=== PATIENT | female | born 1950 ===

== ENCOUNTER 2022-03-30 12:52 | Outpatient (CLI) | payer MEDICARE, SELFPAY ==
[2022-03-30] MEDS: PERFLUTREN LIPID MICROSPHERES 2 ML VIAL IV (13:38)
[2022-03-30 15:11] VITALS: BP 167/80; PULSE 69
== END 2022-03-30 12:53 | disposition home or self-care (01) ==
LOC: STRESS 12:54
PROVIDERS: PCP Internal Medicine; Visit Provider Family Medicine
DX: R07.89 Other chest pain (principal)
CPT/HCPCS: 93016; 93325; 93351; Q9957

== ENCOUNTER 2022-06-01 09:14 | Outpatient (CLI) | payer MEDICARE, SELFPAY ==
[2022-06-01 10:53] LABS: Cholesterol* 145 mg/dL (90-199); HDL Cholesterol* 34 mg/dL (>=50); LDL Cholesterol Calculated 54 mg/dL (<100); Triglycerides* 287 mg/dL (40-149)
== END 2022-06-01 09:15 | disposition home or self-care (01) ==
PROVIDERS: PCP Internal Medicine; Visit Provider Internal Medicine
DX: E03.9 Hypothyroidism, unspecified (principal); E11.9 Type 2 diabetes mellitus without complications; E78.5 Hyperlipidemia, unspecified; I10 Essential (primary) hypertension
CPT/HCPCS: 80061; 84443

== ENCOUNTER 2022-08-16 10:15 | Outpatient (CLI) | payer MEDICARE, SELFPAY ==
--- NOTE | 2022-08-16 10:15 | CRLHL7_ITS ---
For Patients: As a result of the Century Cures Act, medical imaging exams and procedure reports are released immediately into your electronic medical record. You may view this report before your referring provider. If you have questions, please contact your health care provider. SCREENING MAMMOGRAM WITH COMPUTER-AIDED DETECTION TECHNIQUE: CC and MLO views were obtained. These mammographic images have been obtained using full-field digital technique. These mammographic images were interpreted with the benefit of computer-aided detection. COMPARISON FILM: 06/03/21, 05/16/20. FINDINGS: There are scattered areas of fibroglandular density IMPRESSION: There is no radiographic evidence for malignancy. ASSESSMENT: BI-RADS Category 1: Negative RECOMMENDATION: Routine screening mammogram in 1 year. A lay language report of this examination will be provided to the patient. Marcus Holland M.D. Diagnostic Radiologist [email or web address] Transcribed: 1:57 pm DW/Dictated by: Marcus Holland MD @ 08/20/2022 12:18:00 PM (Electronically Signed)
== END 2022-08-16 10:16 | disposition home or self-care (01) ==
PROVIDERS: PCP Internal Medicine; Visit Provider Internal Medicine
DX: Z12.31 Encounter for screening mammogram for malignant neoplasm of breast (principal)
CPT/HCPCS: 77067

== ENCOUNTER 2023-01-03 08:36 | Outpatient (CLI) | payer MEDICARE, SELFPAY | END 2023-01-03 08:37 | disposition home or self-care (01) | LOC: NFLDREF 22:10 | PROVIDERS: PCP Internal Medicine; Referring Provider Internal Medicine; Visit Provider Internal Medicine | DX: E11.9 Type 2 diabetes mellitus without complications (principal); R74.01 Elevation of levels of liver transaminase levels; I10 Essential (primary) hypertension; E03.9 Hypothyroidism, unspecified; E78.5 Hyperlipidemia, unspecified | CPT/HCPCS: 80053; 82043; 82570 ==

== ENCOUNTER 2023-07-05 08:30 | Outpatient (CLI) | payer MEDICARE, SELFPAY | END 2023-07-05 08:31 | disposition home or self-care (01) | LOC: NFLDREF 07-08 06:33 | PROVIDERS: PCP Internal Medicine; Referring Provider Internal Medicine; Visit Provider Internal Medicine | DX: E11.9 Type 2 diabetes mellitus without complications (principal); E78.5 Hyperlipidemia, unspecified; E03.9 Hypothyroidism, unspecified; I10 Essential (primary) hypertension; R74.01 Elevation of levels of liver transaminase levels | CPT/HCPCS: 80053; 80061; 84443 ==

== ENCOUNTER 2023-12-04 08:56 | Emergency (ER) | payer MEDICARE, SELFPAY ==
[2023-12-04 09:00] VITALS: BP 168/86; PULSE 72; RESP 18; TEMP 36.3; O2SAT 98; BMI 33.3
--- NOTE | 2023-12-04 09:18 | CT_ITS ---
Patient: HARRIET WOMACK Facility:?[facility] Patient ID:?[id number] Site Patient ID:?[id number]. Site :?[id number] Study:?CT-Abdomen/Pelvis W/ 98CC ISOVUE 370-12/04/2023 9:39:07 AM Ordering Physician:TULIO Final Report: INDICATION: Left-sided abdominal pain. TECHNIQUE: CT abdomen and pelvis acquired with 98 cc Isovue 370 IV contrast. COMPARISON: MRI abdomen December 14, 2021. FINDINGS: Lower chest: Unremarkable. Liver: Fatty infiltration. Otherwise unremarkable. Gallbladder and bile ducts: Unremarkable. No stones or inflammation. No biliary dilatation. Pancreas: Stable 2 cm midbody cystic Spleen: Lesion. Otherwise unremarkable. Adrenal glands: Unremarkable. No nodules. Kidneys: Unremarkable. No suspicious masses, stones, or hydronephrosis. GI tract: Unremarkable. Normal in caliber. No sign of mass or inflammation. Normal appendix. Vasculature: Abdominal aorta is normal in caliber. Mesenteric arteries are patent. Lymph nodes: No lymphadenopathy. Peritoneum/Abdominal Wall: Unremarkable. No sign of mass or infiltration. No free air or significant free fluid. Pelvis: Unremarkable. Bones: Unremarkable for age. IMPRESSION: 1. No acute or specific finding to explain left-sided abdominal pain. 2. Stable 2 cm cystic lesion in the pancreas. Please note that all CT scans at this facility use dose modulation, iterative reconstruction, and/or weight-based dosing when appropriate to reduce radiation dose to as low as reasonably achievable. Dictated by Blane Hood MD @ 12/04/2023 9:53:46 AM Signed by:?Blane Hood MD @12/04/2023 9:53:46 AM (Electronic Signature)
--- NOTE | 2023-12-04 09:19 | ED.ABDPAIN ---
HPI - Abdominal Pain General Chief Complaint: Abdominal Pain Stated Complaint: abdominal pain, constipation Time Seen by Provider: 12/04/23 09:08 History of Present Illness HPI narrative: This 72-year-old female comes in reporting abdominal pain and constipation for the past 5 days. She states that the pain is rather constant and more localized in the left abdomen. She gets increased pain and nausea when taking food. She does not report any fevers. She did take a Dulcolax tablet a couple days ago and subsequently had a small grayish colored stool. Related Data Home Medications Medication Instructions Recorded Confirmed aspirin 81 mg chewable tablet 81 mg PO DAILY 06/03/22 12/04/23 cholecalciferol (vitamin D3) 25 25 mcg PO DAILY 06/03/22 12/04/23 mcg (1,000 unit) tablet coenzyme Q10 100 mg capsule 100 mg PO DAILY 06/03/22 12/04/23 loratadine 10 mg tablet 10 mg PO DAILY 06/03/22 12/04/23 magnesium oxide 250 mg PO DAILY 06/03/22 12/04/23 multivitamin (Multiple Vitamins 1 tab PO QAM 06/03/22 12/04/23 tablet) omega 6-cot-prv-fish oil 1,000 mg 1 cap PO QDAY 06/03/22 12/04/23 (120 mg-180 mg) capsule (Fish Oil) Previous Rx's Medication Instructions Recorded atorvastatin 10 mg tablet 10 mg PO .Bedtime #90 tabs 07/07/23 levothyroxine 125 mcg tablet 125 mcg PO DAILY #90 tabs 07/07/23 lisinopril 10 1 tab PO DAILY #90 tabs 07/07/23 mg-hydrochlorothiazide 12.5 mg tablet ketorolac 10 mg tablet 10 mg PO Q8H 5 days #15 tabs 12/04/23 methylprednisolone 4 mg tablets in See Rx Instructions PO .COMPLEX 12/04/23 a dose pack (Medrol (Woo)) #21 ea ondansetron HCl 4 mg tablet 4 mg PO Q6H #10 tabs 12/04/23 Allergies Allergy/AdvReac Type Severity Reaction Status Date / Time No Known Drug Allergies Allergy Verified 12/04/23 09:34 Review of Systems Status of ROS Reports: 10 or more systems reviewed and unremarkable except as noted in History and below Narrative Constitutional: No fevers, no weight gain or loss. Eyes: No discharge. No vision changes. HENT: No congestion, no sore throat, no ear pain. Cardiovascular: No chest pain, no palpitations. Respiratory: No shortness of breath, no wheezes, no cough. Gastrointestinal: No vomiting, no diarrhea. Left-sided abdominal pain as described above. Genitourinary: No dysuria, no hematuria. Musculoskeletal: Normal range of motion. Skin: No rashes, no pruritis. Neurological: No dizziness, weakness, sensory change, speech change. Endo/Heme/Allergies: No bruising or bleeding. No polydipsia. Pysch: no suicidality, no anxiety, no insomnia. All other systems reviewed and are negative. [facility] Medical History (Updated 12/04/23 @ 11:29 by Fred Martinez MD) History of temporomandibular joint disorder ?Z87.39 - Personal history of other diseases of the musculoskeletal system and connective tissue (ICD-10) History of Helicobacter pylori infection (2015) ?Z86.19 - Personal history of other infectious and parasitic diseases (ICD-10) Surgical History (Updated 06/03/22 @ 10:23 by Liss Madera MD) History of nasal septoplasty (02/15/08) ?Z98.890 - Other specified postprocedural states (ICD-10) History of cryosurgery (1988) ?Z98.890 - Other specified postprocedural states (ICD-10) History of carpal tunnel release ?Z98.890 - Other specified postprocedural states (ICD-10) History of blepharoplasty (2012) ?Z98.890 - Other specified postprocedural states (ICD-10) Social History Smoking Status: Former smoker Do you use any of these nicotine containing products: None How often do you have a drink containing alcohol: never How often do you have six or more drinks on one occasion: Never AUDIT-C Alcohol total score: 0 Non-prescribed substance use: denies use Little interest or pleasure in doing things: not at all Feeling down, depressed, or hopeless: not at all Exam Narrative: Exam Narrative: Constitutional: Well-developed, well-nourished, no acute distress. HEENT: Normocephalic, atraumatic. Neck: Normal range of motion. Nontender. Supple. Heart: Regular. No murmurs. Normal rate. Intact distal pulses. Lungs: Clear to auscultation. No chest discomfort. No wheezes, rhonchi, or rales. Abdomen: Normal bowel sounds. Diffuse tenderness in the left abdomen. No rebound tenderness. Genitalia: Deferred. Back: No midline tenderness. Normal range of motion. Extremities: Normal range of motion. No injury. Skin: Intact. No rash. Warm. No erythema or pallor. Neurologic: No altered sensation. No weakness. Alert and oriented. Psychiatric: No suicidality. No anxiety or depression. No insomnia. Nursing notes and vitals signs are reviewed. Const: Vital Signs, click to edit/add: Vital Signs - 24 hr 12/04/23 09:00 Temperature 97.3 F L Pulse Rate [Right Pulse Oximeter] 72 Respiratory Rate 18 Blood Pressure [Ri ght Upper Arm] 168/86 H Pulse Oximetry 98 Oxygen Delivery Me thod Room Air Course Vital Signs Vital signs: Initial Vital Signs Temperature 97.3 F L 12/04/23 09:00 Temperature Source Temporal Artery Scan 12/04/23 09:00 Pulse Rate 72 12/04/23 09:00 Pulse Rhythm Regular 12/04/23 09:00 Respiratory Rate 18 12/04/23 09:00 Blood Pressure 168/86 H 12/04/23 09:00 Blood Pressure Mean 113 H 12/04/23 09:00 Pulse Oximetry 98 12/04/23 09:00 Oxygen Delivery Method Room Air 12/04/23 09:00 Vital Signs Temperature 97.3 F L 12/04/23 09:00 Pulse Rate 72 12/04/23 09:00 Respiratory Rate 18 12/04/23 09:00 Blood Pressure 168/86 H 12/04/23 09:00 Pulse Oximetry 98 12/04/23 09:00 Oxygen Delivery Method Room Air 12/04/23 09:00 Temperature 97.3 F L 12/04/23 09:00 Pulse Rate 72 12/04/23 09:00 Respiratory Rate 18 12/04/23 09:00 Blood Pressure 168/86 H 12/04/23 09:00 Pulse Oximetry 98 12/04/23 09:00 Oxygen Delivery Method Room Air 12/04/23 09:00 MDM - Abdominal Pain MDM Narrative Medical decision making narrative: This patient comes in with left-sided abdominal pain and does report some constipation over the past 5 days. An IV is established and the CT imaging and labs are obtained. Lab results returned with reassuring finding as does the CT scan report. She does have a 2 cm cystic structure in her pancreas which is unchanged from previous study. There are no findings on imaging to explain her left-sided abdominal pain. The patient is obviously having some constipation and has not been eating as much. She does have some back pain issues and her abdominal pain may be related to a musculoskeletal or nerve impingement process. She is okay to be discharged home. She did received prescription for Toradol, Zofran, and Medrol Dosepak. She understands that the steroid will cause her glucose to elevate temporarily. Lab Data Labs: Lab Results 12/04/23 12/04/23 Range/Units 09:10 10:20 WBC 9.39 (4.50-11.00) K/uL RBC 4.22 (4.00-5.20) m/uL Hgb 13.7 (12.0-16.0) gm/dL Hct 40.2 (33.0-51.0) % MCV 95 (80-100) fL MCH 33 (26-34) pg MCHC 34 (32-36) gm/dL RDW Coeff of [place] 12.5 (11.5-15.5) % Plt Count 240 (140-440) K/uL Neut % (Auto) 58.5 (42.0-72.0) % Lymph % (Auto) 32.8 (20-44) % [place] % (Auto) 6.4 (0.0-11.0) % Eos % (Auto) 1.8 (0.0-7.0) % Baso % (Auto) 0.4 (0.0-3.0) % Neut # (Auto) 5.49 (1.7-7.0) K/uL Lymph # (Auto) 3.08 H (0.90-2.90) K/uL [place] # (Auto) 0.60 (0.00-0.90) K/UL Eos # (Auto) 0.17 (0.00-0.50) K/uL Baso # (Auto) 0.04 (0.00-0.30) K/uL Abs Immat Gran (auto) 0.01 (0.00-0.30) K/uL Imm/Tot Granulo (auto) 0.1 % Sodium 141 (135-149) mmol/L Potassium 3.6 (3.6-5.1) mmol/L Chloride 103 (96-114) mmol/L Carbon Dioxide 29 (20-32) mmol/L Anion Gap 9 (7-15) mEq/L BUN 16 (7-30) mg/dL Creatinine 0.7 (0.5-1.5) mg/dL Estimated Creat Clear 46.43 Estimated GFR 92 ml/min Glucose 145 H (60-115) mg/dL Calcium 10.2 (8.4-10.6) mg/dL Total Bilirubin 0.6 (0.1-1.5) mg/dL Direct Bilirubin 0.2 (0.0-0.5) mg/dL AST 36 H (12-35) U/L ALT 38 H (4-35) U/L Alkaline Phosphatase 54 (40-150) U/L Total Protein 8.1 (6.0-8.3) g/dL Albumin 4.7 (3.3-5.0) g/dL Lipase 119 (23-300) U/L Urine Color Yellow (Yellow) Urine Appearance Clear (Clear) Urine pH 6.5 (5.0-8.5) Ur Specific [place] 1.015 (1.000-1.030) Urine Protein Negative (Negative) Urine Glucose (UA) Negative (Negative) Urine Ketones Negative (Negative) Urine Blood Negative (Negative) Urine Nitrite Negative (Negative) Urine Bilirubin Negative (Negative) Urine Urobilinogen 0.2 (0.2-1.0) Ur Leukocyte Esterase Negative (Negative) Urine RBC 0-2 (0-2) Urine WBC 0-2 (0-5) Ur Squamous Epith Cells Few (None-Few) Urine Bacteria None (None) Imaging Data CT scan - abdomen: Radiologist's impression: No acute or specific finding to explain left-sided abdominal pain. Stable 2 cm cystic lesion in the pancreas. Discharge Plan Discharge Clinical Impression: Abdominal pain Patient Disposition: Home, Self-Care Condition: Stable Additional Instructions: Take medications as needed and indicated. Use qrhj-qst-[id number] medicines to treat constipation as needed and directed. Follow up with MD or return if worsening. Prescriptions: New ondansetron HCl 4 mg tablet 4 mg PO Q6H Qty: 10 0RF ketorolac 10 mg tablet 10 mg PO Q8H 5 Days Qty: 15 0RF methylprednisolone [Medrol (Woo)] 4 mg tablets,dose pack See Rx Instructions .ROUTE .COMPLEX Qty: 21 0RF Rx Instructions: orally per package directions No Action cholecalciferol (vitamin D3) 25 mcg (1,000 unit) tablet 25 mcg PO DAILY coenzyme Q10 100 mg capsule 100 mg PO DAILY magnesium oxide 250 mg magnesium tablet 250 mg PO DAILY loratadine 10 mg tablet 10 mg PO DAILY aspirin 81 mg tablet,chewable 81 mg PO DAILY multivitamin [Multiple Vitamins] Tablet 1 tab PO QAM omega 7-wbr-vjx-fish oil [Fish Oil] 1,000 mg (120 mg-180 mg) capsule 1 cap PO QDAY atorvastatin 10 mg tablet 10 mg PO .Bedtime Qty: 90 3RF levothyroxine 125 mcg tablet 125 mcg PO DAILY Qty: 90 3RF lisinopril-hydrochlorothiazide 10-12.5 mg tablet 1 tab PO DAILY Qty: 90 3RF Follow Up/Referrals: Liss Madera MD [Primary Care Provider] - [facility]
[2023-12-04 09:36] LABS: Basophils Absolute Auto 0.04 K/uL (0.00-0.30); Basophils Percent Auto 0.4 % (0.0-3.0); Eosinophils Absolute Auto 0.17 K/uL (0.00-0.50); Eosinophils Percent Auto 1.8 % (0.0-7.0); Hematocrit 40.2 % (33.0-51.0); Hemoglobin* 13.7 gm/dL (12.0-16.0); Immature Granulocytes Abs Auto 0.01 K/uL (0.00-0.30); Immature Granulocytes Pct Auto 0.1 %; Lymphocytes Absolute Auto 3.08 K/uL (0.90-2.90); Lymphocytes Percent Auto 32.8 % (20-44); Mean Corpuscular HGB Conc 34 gm/dL (32-36); Mean Corpuscular Hemoglobin 33 pg (26-34); Mean Corpuscular Volume 95 fL (80-100); Monocytes Percent Auto 6.4 % (0.0-11.0); Neutrophils Absolute Auto 5.49 K/uL (1.7-7.0); Neutrophils Percent Auto 58.5 % (42.0-72.0); Platelet Count* 240 K/uL (140-440); RDW Coefficient of Variation % 12.5 % (11.5-15.5); Red Blood Count 4.22 m/uL (4.00-5.20); White Blood Count* 9.39 K/uL (4.50-11.00)
[2023-12-04 09:46] LABS: Slide Review Reflex No
[2023-12-04 09:50] LABS: Albumin* 4.7 g/dL (3.3-5.0); Chloride* 103 mmol/L (96-114); Potassium* 3.6 mmol/L (3.6-5.1); Sodium* 141 mmol/L (135-149)
[2023-12-04 09:52] LABS: Anion Gap 9 mEq/L (7-15); Bilirubin Direct* 0.2 mg/dL (0.0-0.5); Bilirubin Total* 0.6 mg/dL (0.1-1.5); Carbon Dioxide* 29 mmol/L (20-32); Creatinine* 0.7 mg/dL (0.5-1.5); Est. Creatinine Clearance* 46.43; Estimated Glomerular Filt Rate 92 ml/min; Total Protein* 8.1 g/dL (6.0-8.3)
[2023-12-04 09:53] LABS: Alanine Aminotransferase* 38 U/L (4-35); Alkaline Phosphatase* 54 U/L (40-150); Aspartate Amino Transferase* 36 U/L (12-35); Blood Urea Nitrogen* 16 mg/dL (7-30); Calcium* 10.2 mg/dL (8.4-10.6); Glucose* 145 mg/dL (60-115); Lipase* 119 U/L (23-300)
[2023-12-04 10:27] LABS: Appearance Urine Clear (Clear); Bilirubin Urine Negative (Negative); Blood Urine Negative (Negative); Color Urine Yellow (Yellow); Glucose Urine Negative (Negative); Ketones Urine Negative (Negative); Leukocyte Esterase Urine Negative (Negative); Nitrite Urine Negative (Negative); Protein Urine Negative (Negative); Specific Gravity Urine 1.015 (1.000-1.030); Urobilinogen Urine 0.2 (0.2-1.0); pH Urine 6.5 (5.0-8.5)
[2023-12-04 10:42] LABS: RBC Urine 0-2 (0-2); Squamous Epithelial Cell Urine Few (None-Few); WBC Urine 0-2 (0-5)
== END 2023-12-04 11:37 | disposition home or self-care (01) ==
PROVIDERS: Emergency Provider Emergency Medicine Emergency Medical Services; PCP Internal Medicine
DX: R10.9 Unspecified abdominal pain (principal)
CPT/HCPCS: 36415; 74177; 80048; 80076; 81001; 83690; 85025; 99284; 99285; Q9967

== ENCOUNTER 2023-12-29 10:35 | Outpatient (CLI) | payer MEDICARE, SELFPAY ==
--- OUTSIDE RECORDS SUMMARY | 2023-12-30 07:11 | XMS_ITS | Encounter Summary ---
Author Name Unknown Organization [facility] Address [address] [place] [address] Care Team Providers Care Moose Hunter Name Role Phone Elsewhere, Pcp Primary Care Provider Unavailabl e Reason for Visit * Reason Onset Date Comments Post Surgery Question 12/23/2023 Encounter Details Date Type Department Care Team (Latest Contact Info) Description 12/23/2023 Clinical Communication Department of Otorhinolaryngology in [place], [place] [address] [place] [address] Daniel Domínguez M.D. [address] [place] [phone] Post Surgery Question Social History Tobacco Use Types Packs/Day Years Used Date Smoking Tobacco: Former Cigarettes Q uit: 09/20/1991 Alcohol Use Standard Drinks/Week Comments Yes 8 (1 standard drink = 0.6 oz pur e alcohol) [facility] Utilities Answer Date Recorded In the past 12 months has e electric, gas, oil, or water company threatened to shut off services in your home? No 12/22/2023 Social Connection and Isolat ion Panel [NHANES] Answer Date Recorded In a typical week, how many times do you talk on the phone with family, friends, or neighbors? Once a week 02/25/2021 How often do you get togethe r with friends or relatives? Once a week 02/25/2021 How often do you attend [facility] or sikh services? Never 02/25/2021 Do you belong to any clubs o r organizations such as temple groups, unions, fraternal or athletic groups, or school groups? Yes 02/25/2021 How often do you attend meet ings of the clubs or organizations you belong to? More than 4 times per year 02/25/2021 Are you , , di vorced, , never , or living with a partner? 02/25/2021 AUDIT-C Answer Date Recorded Q1: How often do you have a drink containing alcohol? 4 or more times a week 02/25/2021 Q2: How many drinks containi ng alcohol do you have on a typical day when you are drinking? 1 or 2 Q3: How often do you have si x or more drinks on one occasion? Never 02/25/2021 Overall Financial Resource Strain (CARDIA) Answe r Date Recorded How hard is it for you to pa y for the very basics like food, housing, medical care, and heating? Not hard at all 02/25/2021 [facility] - Occupational Stress Questionnaire Answer Date Recorded Do you feel stress - tense, restless, nervous, or anxious, or unable to sleep at night because your mind is troubled all the time - these days? Not at all 02/25/2021 Exercise Vital Sign Answer Date Recorde d On average, how many days pe r week do you engage in moderate to strenuous exercise (like a brisk walk)? 4 days 11/15/2023 On average, how many minutes do you engage in exercise at this level? 60 min 11/15/2023 Hunger Vital Sign Answer Date Recorded Within the past 12 months, y ou worried that your food would run out before you got the money to buy more. Never true 12/22/19 24 Within the past 12 months, t he food you bought just didn't last and you didn't have money to get more. Never true 12/22/2023 PRAPARE - Transportation Answer Date Re corded In the past 12 months, has l ack of transportation kept you from medical appointments or from getting medications? No 12/11 In the past 12 months, has l ack of transportation kept you from meetings, work, or from getting things needed for daily living? No 12/22/2023 Nutrition Answer Date Recorded Nutrition: EVOO Fat Source Yes 11/14 On average, how many serving s of fruits and vegetables do you eat per day (serving size is equal to 1 cup or approximately the size of a tennis ball)? 3-5 11/15/2023 Dental Answer Date Recorded Dental: Regular Dentist Yes 09/22/19 Employment Answer Date Recorded Employment status Retired 11/15/2023 Housing Stability Answer Date Recorded What is your living situation today? I have a [facility] place to live 12/22/2023 Education Answer Date Recorded What is the highest level of school you have completed or the highest degree you have received? Some college, no degree 02/25/2021 Sex and Gender Information Value Date Recorded Sex Assigned at Female 11/15/2023 8:06 PM ZIPPER CUTTER Gender Identity Female 11/15/2023 8:06 PM ZIPPER C[employer]TER Sexual Orientation Straight 11/15/2023 8: 06 PM ZIPPER CUTTER documented as of this encounter Miscellaneous Notes * Telephone Encounter - Sridevi Almonte - 12/23/2023 3:17 PM CDT Patient had surgery (parotidectomy/exploration left parapharyngeal space) on 12/21/23. She is calling today with a questions. There was a Band-Aid placed behind her left ear before leaving the hospital. She does not know why it was placed but wanted to know if it's okay to pull it off? Please call patient back at: documented in this encounter Plan of Treatment Upcoming Encounters Date Type Department Care Team (Late st Contact Info) Description 01/31/2024 8:30 AM CDT Office Visit Department of Otorhinolaryngology in [place], [place] [address] [place] [phone] Daniel Domínguez M.D. [address] [place] [phone] documented as of this encounter Visit Diagnoses Not on filedocumented in this encounter Care Teams Moose Hunter Relationship Specialty Start Date End Date Elsewhere, Pcp PCP - General Internal Medicine 12/19/23 documented as of this encounter
--- OUTSIDE RECORDS SUMMARY | 2023-12-30 07:11 | XMS_ITS ---
Author Name Unknown Organization [facility] Address [address] [place] [address] Care Team Providers Care Editorial Manager Name Role Phone Unavailable Unavailable Unavailable Surgery Details Not on file Complications Check Surgery Details section. Procedure Estimated Blood Loss Check Surgery Details section. Procedure Findings Check Surgery Details section. Procedure Specimens Taken Check Surgery Details section.
--- OUTSIDE RECORDS SUMMARY | 2023-12-30 07:11 | XMS_ITS | Encounter Summary ---
Author Name Unknown Organization [facility] Address [address] [place] [address] Care Team Providers Care Continuous Improvement Intern Name Role Phone Elsewhere, Pcp Primary Care Provider Unavailabl e Reason for Referral * Outpatient (Routine) - Authorized Specialty Diagnoses / Procedures Referred By Rosina arana Referred To Contact Otorhinolaryngology Michell Ann M.D. [address] [place] [address] Daniel Domínguez M.D. [address] [place] [address] Referral ID Status Reason Start Date Expiration Date V isits Requested Visits Authorized [id number] Authorized 12/21/2023 06/21/2025 1 1 Reason for Visit * Auth/Cert (Routine) Specialty Diagnoses / Procedures Referred By Contac t Referred To Contact Diagnoses Other Diseases Of Salivary Glands Other Diseases Of Salivary Glands [K11.8] Procedures LA EXCISN PRTD TMR LAT WO NRV DISEC LA EXCISN PRTD TMR TOT W NRV DISEC LA GRAFTING OF AUTOLOGOUS SOFT TISS BY DIRECT EXC Partial PAROTIDECTOMY PAROTIDECTOMY - TOTAL HARVEST FAT GRAFT ABDOMEN EXPLORATION PARAPHARYNGEAL SPACE; Proceed as indicated Referral ID Status Reason Start Date Expiration Date Visits Re quested Visits Authorized [id number] 1 1 Encounter Details Date Type Department Care Team (Latest Contact Info) Description 12/21/2023 12:10 PM CDT - 12/22/2023 12:57 PM CDT Hospital Encounter [facility], [facility], [facility], Sixth Floor [address] [place] [phone] Daniel Domínguez M.D. [address] [place] [address] Other Diseases Of Salivary Glands Discharge Disposition: Home or Self Care Social History Tobacco Use Types Packs/Day Years Used Date Smoking Tobacco: Former Cigarettes Q uit: 09/20/1991 Tobacco Cessation:Counseling Given: Not Answered Alcohol Use Standard Drinks/Week Comments Yes 8 (1 standard drink = 0.6 oz pur e alcohol) [facility] Utilities Answer Date Recorded In the past 12 months has th e electric, gas, oil, or water company [...] week 02/25/2021 How often do you attend chur ch or yarsanism services? Never 02/25/2021 Do you belong to any clubs o r organizations such as presybeterian groups, unions, fraternal or athletic groups, or [...] and heating? Not hard at all 02/25/2021 [facility] - Occupational [...] your living situation today? I have a [facility] [place] to live 12/22/2023 Education Answer Date Recorded What is the highest level of school you have completed or the highest degree you have received? Some college, no degree 02/25/2021 Sex and Gender Information Value Date Recorded Sex Assigned at Female 11/15/2023 8:06 PM [employer]IP ENGINES OPERATING ENGINEER Gender Identity Female 11/15/2023 8:06 PM SHIP ENGINES OPERATING ENGINEER Sexual Orientation Straight 11/15/2023 8: 06 PM SHIP ENGINES OPERATING ENGINEER documented as of this encounter Last Filed Vital Signs Vital Sign Reading Time Taken Comments Blood Pressure 142/55 12/22/2023 11:17 AM CDT Pulse 52 12/22/2023 11:17 AM CDT Temperature 36.7 ??C (98.1 ??F) 12/22/2023 11:17 AM C DT Respiratory Rate 14 12/22/2023 11:17 AM CDT Oxygen Saturation 96% 12/22/2023 11:17 AM CDT Inhaled Oxygen Concentration - - Weight 89.4 kg (197 lb 1.5 oz) 12/21/2023 11:00 PM CDT Height 165.1 cm (5' 5) 12/21/2023 12:29 PM CDT Body Mass Index 32.8 12/21/2023 12:29 PM CDT documented in this encounter Discharge Summaries * Michell Ann M.D. - 12/22/2023 8:00 AM CDT DISCHARGE SUMMARY BRIEF OVERVIEW Hospital: [facility] Discharge Provider: Daniel Domínguez M.D. Primary Team: [facility] - [facility] Primary Care Providers: Elsewhere, Pcp (General) No address on file Primary Care Provider Phone Number: None Primary Care Provider Fax Number: None Admission Date: 12/21/2023 Discharge Date: 12/22/2023 PRINCIPAL DIAGNOSIS Mass Parotid SECONDARY DIAGNOSES Principal Problem: Mass Parotid Active Problems: Hyperlipidemia Hypertension Essential Primary Hypothyroidism Resolved Problems: * No resolved hospital problems. * Surgery Information This Encounter Past Procedures (12/22/2022 to Today) Date Procedures Providers Loc / Dept 12/21/2023 Partial PAROTIDECTOMY., EXPLORATION PARAPHARYNGEAL SPACE Daniel Domínguez M.D.Staricha, Kelly L, M.D.Peraza, Lazaro R, M.D. [facility] ROMB OR DISCHARGE DISPOSITION Home or Self Care [1] OUTPATIENT FOLLOW UP Scheduled Appointments 01/31/2024 8:30 AM Daniel Domínguez M.D. Otorhinolaryngology For appointment details refer to your Patient Appointment Guide. TEST RESULTS PENDING AT DISCHARGE Pending Labs Order Current Status Surgical Pathology, Frozen Lab In process DETAILS OF HOSPITAL STAY REASON FOR ADMISSION Other Diseases Of Salivary Glands HOSPITAL COURSE On 12/22/23 the patient was taken to the operating room and underwent the following procedure: Procedure(s): Partial PAROTIDECTOMY. (Left) EXPLORATION PARAPHARYNGEAL SPACE (Left) Following an uneventful operative course and a brief stay in the post anesthesia care unit, the patient was transferred to the general care floor. Early mobilization after surgery was tolerated well.The postoperative course was uncomplicated. Postoperatively there were no signs or symptoms of hematoma or respiratory distress. When the patient was tolerating the goal diet at discharge, the pain was well controlled on oral medications, bowel and bladder function and ambulatory status had returned to its prior state the patient was discharged from the hospital. 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 Total time spent in discharge services today: 30 minutes. documented in this encounter Discharge Instructions * Discharge Instructions* Guille Zeng II - 12/21/2023 12:50 PM CDT You were discharged from the [facility] - [facility]. Please identify this service name if you callwith questions after hospitalization. * Attachments The following attachments cannot be sent through Care Everywhere. * Oxycodone, Rapid Release (By mouth) (Indian) * Scopolamine (Absorbed through the skin) (Indian) * Acetaminophen (By mouth) (Indian) * Carboxymethylcellulose (Into the eye) (Indian) * Ibuprofen (By mouth) (Indian) * Laxative, Stimulant (By mouth) (Indian) documented in this encounter Medications at Time of Discharge Medication Sig Dispensed Refills Start Date End Date acetaminophen (TYLENOL) 500 mg tablet Take 2 tablets (1,000 mg total) by mouth every 6 (six) hours as needed for pain. 12/22/[address] tablet Take 81 mg by mouth. 01/30/2019 atorvastatin (LIPITOR) 10 mg tablet Take 10 mg by mouth. 11/27/2020 carboxymethylcellulos e (REFRESH PLUS) 0.5 % ophthalmic solution Administer 1 drop into the left eye every 10 (ten) minutes as needed for dry eyes. 12/22/2023 cholecalciferol (VITAMIN D3) 25 mcg (1,000 Unit) capsule Take 1 capsule by mouth. 08/11/2010 co-enzyme Q-10 (CO Q-10) 100 mg capsule Take 1 capsule by mouth daily. 06/26/2013 FISH OIL-DHA-EPA ORAL Take 1 capsule by mouth every morning. 05/19/2016 glucosamine sulfate (GLUCOSAMINE) 500 mg capsule Take 500 mg by mouth 3 (three) times a day. ibuprofen (ADVIL,MOTRIN) 200 mg tablet Take 3 tablets (600 mg total) by mouth every 8 (eight) hours as needed for pain. Take with food. 12/22/2023 levothyroxine (SYNTHROID, LEVOTHROID) 125 mcg tablet Take 1 tablet by mouth every morning. 05/19/2016 lisinopril-hydroCHLOR Othiazide (PRINZIDE,ZESTORETIC) 10-12.5 mg per tablet Take 1 tablet by mouth. 05/19/2016 loratadine (CLARITIN) 10 mg tablet Take 1 tablet by mouth every evening. 05/19/2016 magnesium 250 mg tablet Take 250 mg by mouth. 01/30/2019 multivitamin tablet Take 1 tablet by mouth every morning. 05/19/2016 oxyCODONE (ROXICODONE) 5 mg immediate release tabletIndications:Acu te Pain Take 1 tablet (5 mg total) by mouth every 4 (four) hours as needed for pain Indication: Acute Pain. 12 tablet 12/21/2023 sennosides-docusate sodium (Senna with Docusate Sodium) 8.6-50 mg per tablet Take 1 tablet by mouth 2 (two) times a day. 12/21/2023 scopolamine base (TRANSDERM SCOP) 1 mg over [address] 1 patch on the skin every third day for 2 doses. Remove the patch you had on from the hospital on 4/13 and replace with a new patch; remove this second patch and replace with a new patch on 12/26; Remove this third patch on 12/29 Discontinue using and remove patch if you have dizziness, nausea/vomiting, blurry vision, imbalance, or severe weakness. 2 patch 12/24/2023 12/28/2023 documented as of this encounter Progress Notes * Michell Ann M.D. - 12/22/2023 8:01 AM CDT SUBJECTIVE : Interval History: Patient doing well. No events. Denies difficulty closing eye on surgical side. Patient denies any chest pain, shortness of breath, nausea, or vomiting. Reports pain to be controlledand denies any additional concerns at this time. I have reviewed the current medication list. OBJECTIVE : Vitals: 12/22/23 0100 12/22/23 0200 12/22/23 0300 12/22/23 0400 BP: 106/66 132/58 156/59 BP Location: Right arm;Upper Patient Position: Lying Pulse: (!) 59 (!) 58 (!) 56 (!) 57 Resp: 14 12 Temp: 36.4 ??C TempSrc: Axillary SpO2: 92% 92% 91% 94% Weight: Height: General: The patient is awake, alert, and oriented. Appears to be in no acute distress. Face: House-Brackmann grade I/ on surgical side.Except for left marginal mandibular nerve weakness. Scleral injection Absent on surgical side. Neck: Supple. Trachea is midline. Parotid incision clean, dry and intact. No clinical hematoma or seroma observed. Drain in place to high continuous wall suction, serosanguineous, appropriate output. Chest/Pulmonary: Patient breathing comfortably on room air, no stridor or respiratory distress. INTAKE/OUTPUT: Output by Drain (mL) 12/20/23 07 - 12/20/23 19012/20/231900 - 12/21/23 0712/21/23 07 - 12/21/23 19012/21/23 190 - 12/22/23 0712/22/23 07 - 12/22/23 0801 Closed/Suction Drain 1 Inferior;Left;Dorsal Head Bulb 10 Fr. 10 I/O 12/19 0712/20 0712/20 12/21 0700 12/21 0701 12/22 0700 P.O. 700 Maintenance IV 600 Total Intake(mL/kg) 1300 (14.5) Urine (mL/kg/hr) 900 Drains 10 Total Output 910 Net +390 ASSESSMENT / PLAN 1 Day Post-Op Procedure(s) (LRB): Partial PAROTIDECTOMY. (Left) EXPLORATION PARAPHARYNGEAL SPACE (Left) #1 Mass Parotid #2 Hyperlipidemia #3 Hypertension Essential Primary #4 Hypothyroidism Patient doing well POD1. Drain removed. Ready for discharge today. Discussed expected recovery of left marginal mandibular nerve facial weakness in 2-3 months, first bite syndrome, and swelling of her left cheek with eating. Continuing scopolamine patches for 9 days post op to help mitigate swelling/pain of left parotid gland. - Pain controlled on current medications. Will continue current medication with preference for PO/GTUBE pain meds. - PRN medications for nausea or vomiting. - Continue neck drain to suction as ordered. - Elevate head of bed minimum of 30 degrees overnight. Review: VTE Ppx - Heparin and SCDs Discharge Information: Expected Discharge Date: 12/22/2023. documented in this encounter H&P Notes * Nelsy Nowak APRN, C.N.P., M.S.N. - 12/21/2023 2:46 PM CDT INTERVAL HISTORY AND PHYSICAL PRE-PROCEDURE UPDATE H&P reviewed. The patient was examined and there are no significant changes to the H&P. Nelsy Nowak APRN, Cassidy.N.PMarcelino, M.S.N. Source Note - Lizabeth Gillette APRN, C.N.PMarcelino, M.S.N. - 12/20/2023 7:30 AM CDT REASON FOR VISIT: Preoperative Medical Evaluation REFERRING PHYSICIAN: Daniel Domínguez M.D. 12/21/2023: PAROTIDECTOMY; Daniel Domínguez M.D. Surgery Specific Risk Classification: Elevated Risk SUBJECTIVE HISTORY OF PRESENT ILLNESS Zaida Pastor is a 73 y.o. female who is here for preanesthetic medical examination prior to the planned procedure as listed above. REVIEW OF SYSTEMS The following systems were negative: Constitutional, Respiratory, Cardiovascular, Neurological Cardiac Risk Scoring: PRO Scores: 12/13/2023 SpinePRO PROMIS-CAT: Physical function 48 (within normal limits) DASI Calculations Flowsheet Row Comprehensive Visit from 12/20/2023 in [facility] in [place], [place] DASI Total Score 31.45 Estimated V02 Peak 23.12 Estimated MET Level 6.61 OBJECTIVE OBJECTIVE PHYSICAL EXAMINATION General/Constitutional Constitutional Assessment: Obese General State of Health: Healthy appearing Airway (HEENT) Mallampati: II TM Distance: >3 FB Neck ROM: Full Mouth Opening: > 3 cm Upper Lip Bite Test: I Dental Assessment: Dentition intact Cardiovascular Bilateral lower extremity compression stockings. Mild lower extremity edema. Rhythm: Regular Rate: Normal Cardiovascular Assessment: Normal Pulmonary Pulmonary Assessment: Clear and non labored Neurological Neurologic Assessment: Alert and oriented X 3 Musculoskeletal MSK Assessment: Normal Gait: Normal Ambulate with: None Psychiatric Psychiatric Assessment: Calm Dermatology Skin Assessment: normal ASSESSMENT / PLAN Anesthesia: Patient reports previous anesthesia related complications. Positive for motion sickness. Acupressure bands have been helpful in the past. Difficult IV start. Hard to find. Airway Hx: No airway records. Right TMJ. Lab Results Component Value Date HGB 12.8 04/17/2018 HCT 38.5 04/17/2018 PLT 153 04/17/2018 NA 142 12/20/2023 KSERUM 3.9 12/20/2023 CREATININE 0.84 12/20/2023 EGFR 74 12/20/2023 TSH 2.66 04/30/2020 HGBA1C 5.9 03/06/2021 LAB: A1c today is pending. ECG: None available. ECHO: 03/31/2022 (CE). 1. Negative stress echo for ischemia. 2. Grossly normal rest screening echo. 3. See separate report for EKG interpretation. 4. During stress exam the patient developed shortness of breath. 5. Maximum stress test with 86.2% of age predicted maximum heart rate achieved. 6. Echo contrast was administered to enhance visualization of all left ventricular segments. 7. Post stress, normal left ventricular size, normal global systolic function with an estimated EF of 70 to 75%. #1 Preanesthetic Medical Exam #2 Other Diseases Of Salivary Glands Delightful 73-year-old female, former smoker (1991) presents for EMERITA. She will be accompanied by her day of procedure. She goes skiing in the winter, biking in summer [place] Shecan tolerate 1 flight of stair climbing. Currently has some limitations due to a right ITP band injury. She denies any worrisome cardiopulmonary symptoms at rest or with activity. She is holding all vitamins, supplements, and NSAIDs. Tylenol as needed for pain. #3 Anesthesia Complication Personal History Difficult IV start. Hard to find. #4 Apnea Sleep Obstructive Compliant with CPAP. She will bring with to the hospital. Due to the nature of the surgery this maynot be used postoperatively. #5 Temporomandibular Joint Disorder Right greater than left. No mouth guard. #6 Hypertension Essential Primary Controlled. Blood pressure today 135/78. Hold lisinopril-hydrochlorothiazide day of procedure. #7 Diabetes Mellitus Type 2 Without Complication (HCC) Diet-controlled diabetes type 2. She does not monitor her blood sugar on a regular basis. A1c addedto today's labs. #8 Hyperlipidemia She stopped her baby aspirin 1 week ago. Continue atorvastatin as prescribed. #9 Hypothyroidism Continue levothyroxine. #10 Obesity Body Mass Index 30-39.9 Adult BMI 32.31 with associated obstructive sleep apnea, hypertension, hyperlipidemia, and diabetes mellitus. PATIENT EDUCATION: Reviewed Instructions To Get Ready for Your Surgery or Procedure: [facility] [id number] rev 0124. Written and verbal instructions given on medication management beforesurgery. Reviewed instructions on avoiding aspirin, ibuprofen-containing medications, and supplements one week before surgery. Patient may take acetaminophen as needed for pain. RECOMMENDATIONS: Patient medically optimized for planned procedure: Yes Further Recommendations: None Caprini Total Score: 5 The patient is at high risk for postoperative DVT or PE. Mechanical AND chemoprophylaxis are recommended at the time of procedure and during postoperative hospitalization, as well as chemoprophylaxisat the time of hospital discharge, unless there are contraindications or risk of bleeding outweighsbenefits of chemoprophylaxis. documented in this encounter OR Notes * Op Note - Daniel Domínguez M.D. - 12/21/2023 6:21 PM CDT Pre-op Diagnosis Other Diseases Of Salivary Glands Post-op Diagnosis Other Diseases Of Salivary Glands Inspector Balance Truing A esol teacher assistant actively participated and was necessary for one or more of the following: opening, exposure and visualization during the case, maintaining hemostasis, wound closure resulting in itssafe and expeditious completion. Findings As expected. Complications None Operative Note Narrative The patient was brought to the operating room underwent uncomplicated endotracheal intubation. Appropriate time-out was made for patient procedure identification. A curved incision and facial skin creases was marked and injected in a preauricular area down into the neck. Patient was prepped and drap ed in a sterile fashion. Facial nerve integrity monitoring electrodes were placed in the frontalis orbicularis oculi orbicularis auris and mentalis. Appropriate placement was confirmed it was used throughout the procedure. Skin was incised and a flap was elevated beneath the SMAS anteriorly to the m asseteric fascia. The tragal pointer was identified the posterior belly of the digastric was identified and we dissected down to the main trunk of the facial nerve. We then performed anterior grade dissection on the superior and inferior division to get adequate exposure of the nerve. We then opened the styloid mandibular tunnel. We divided the external carotid artery and ligated it with a silk suture ligature. We identified the inferior aspect of the tumor and then bluntly dissected around it.We bluntly dissected above the facial nerve and around the main trunk of the facial nerve to free the tumor up. The tumor was removed without violating the capsule and sent for frozen section. It was consistent with a benign pleomorphic adenoma. The wound was irrigated hemostasis assured. A round drain was placed in the neck through a separate stab hole. The superficial parotid was laid back downin his normal position. The incision was closed in a layered fashion. The facial nerve was anatomically and electrically intact at the end of the procedure. The patient was turned over to Anesthesia f or emergence. Daniel Domínguez M.D. documented in this encounter Miscellaneous Notes * Result Encounter Note - Daniel Domínguez M.D. - 12/23/2023 3:23 PM CDT I have reviewed the final pathology report and the identified diagnosis is consistent with the patient's clinical presentation. * Hospital Course - Michell Ann M.D. - 12/22/2023 7:58 AM CDT On 12/22/23 the patient was taken to the operating room and underwent the following procedure: Procedure(s): Partial PAROTIDECTOMY. (Left) EXPLORATION PARAPHARYNGEAL SPACE (Left) Following an uneventful operative course and a brief stay in the post anesthesia care unit, the patient was transferred to the general care floor. Early mobilization after surgery was tolerated well.The postoperative course was uncomplicated. Postoperatively there were no signs or symptoms of hematoma or respiratory distress. When the patient was tolerating the goal diet at discharge, the pain was well controlled on oral medications, bowel and bladder function and ambulatory status had returned to its prior state the patient was discharged from the hospital. 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 - 12/20/2023 11:34 PM CDT Zaida Pastor is a 73 y.o. 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 On 12/20, she will undergo a left exploration of the parapharyngeal space with mass removal/partial deep lobe parotidectomy, possible total parotidectomy, possible abdominal fat graft. ANESTHESIA - ETT: Nasal ETT, taped to nose - Fio2: per anesthesia - Paralysis: No long acting paralysis - Pressors: per anesthesia - Abx: ancef - Decadron: per anesthesia - Pt position: supine - Arm tuck: both tucked - Arterial Line: not indicated for this surgery barring patient-specific factors - Bed position: 90 degree turn with right arm adjacent to anesthesia machine - Estimated Time: 2 hours NURSING - Devine: no - Patient postop status/disposition: likely outpatient; pending extent of surgery - Meds: 1% lidocaine with 1:100,000 epinephrine mixed with 0.5% bupivacaine - Prep: IMF at beginning of case to advance mandible, betadine face/neck; No abdominal prep. - Special equipment: 4-lead facial nerve monitor, prass probe, neck sutton; KLS IMF screws, screw entry level truck driver, 16 and 18 G wire - Closure: 4-0 mono, dermabond - Other concerns: removal of IMF screws at end of nupur - follow-up: 6 week video followup Michell Ann M.D. Resident Physician ENT [facility], [phone] [facility] Dept. of Otorhinolaryngology-Head & Neck Surgery documented in this encounter Plan of Treatment Upcoming Encounters Date Type Department Care Team (Late st Contact Info) Description 01/31/2024 8:30 AM CDT Office Visit Department of Otorhinolaryngology in [place], [place] [address] [place] [address] Daniel Domínguez M.D. [address] [place] [address] Scheduled Referrals Name Type Priority Associated Diagnoses Order Schedule Otorhinolaryngology Post Op (clinic) Outpatient Referral Routine Expected: 02/01/2024, Expires: 03/21/2025 documented as of this encounter Procedures Procedure Name Priority Date/Time Associated Diagnosis Comments GLUCOSE POCT, B Routine 12/21/2023 8:05 PM CDT ADULT OXYGEN THERAPY Routine 12/21/2023 8:02 PM CDT REMOTE OXIMETRY MONITORING CONT. STAT 12/21/2023 8:02 PM CDT SURGICAL PATHOLOGY, [facility] Routine 12/21/2023 7:07 PM CDT Other Diseases Of Salivary Glands EXPLORATION PARAPHARYNGEAL SPACE 12/21/2023 5:05 PM CDT Other Diseases Of Salivary Glands Case Notes AUTOMOBILE SERVICE ADVISOR at 12:23 PAROTIDECTOMY 12/21/2023 5:05 PM CDT Other Diseases Of Salivary Glands Case Notes AUTOMOBILE SERVICE ADVISOR at 12:23 GLUCOSE POCT, B Routine 12/21/2023 4:02 PM CDT documented in this encounter Results * Glucose, POCT (12/21/2023 8:05 PM CDT) Glucose, POCT, B 133 70 - 140 mg/dL 12/21/2023 9:17 PM CDT PCLX Site Capillary 12/21/2023 9:17 PM CDT PCLX Blood 12/21/2023 8:05 PM CDT 12/21/2023 9:17 PM CDT Unknown Provider LAB POCT ORDERABLES- MANUAL Performing Organization Address City/State/[facility] Co de Phone Number POC [facility] [address] [place] [address], [facility] PCL[facility] [address] [place] [address] * Surgical Pathology, Frozen Lab (12/21/2023 7:07 PM CDT) 12/23/2023 8:00 AM CDT STMA Report electronically signed by Damien Ramirez M.D. I verify that I have examined all relevant slides/materials for the specimen(s) and rendered or confirmed the diagnosis. 12/23/2023 8:00 AM CDT STMA Frozen Intraoperative Report A. 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 Signed by Damien Ramirez M.D. 12/22/2023 9:32 AM 12/23/2023 8:00 AM CDT STMA Gross Description A. ??Received fresh labeled left deep parotid is a 2 x 1.8 x 1.3 cm portion of salivary gland tissue, which is inked and margins are submitted perpendicularly. ??There is a 1.9 x 1.7 x 1.2 cm dover-white, solid, well-circumscribed mass that grossly is confined to the gland. Intraparenchymal and periglandular lymph nodes are not identified. [employer] tissue submitted for frozen and permanent sections. ??Grossed by Matilde Gonzalez M.D.-Pathology Fellow. 12/23/2023 8:00 AM CDT STMA Block Summary A Left deep parotid A1 Mass - 1 - frozen A2 Mass - 2 - frozen A3 Mass - 3 - frozen 12/23/2023 8:00 AM CDT STMA Interpretation FINAL DIAGNOSIS A. 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 12/23/2023 8:00 AM CDT STMA Tissue (Salivary Gland, Parotid Left) 12/21/2023 7:07 PM CDT Daniel Domínguez M.D. LAB SURG PATH ORDERA BLES [facility] [address] [place] [address], [facility] STMA [address] [place] [address] * Glucose, POCT (12/21/2023 4:02 PM CDT) Glucose, POCT, B 109 70 - 140 mg/dL 12/21/2023 4:05 PM CDT PCLX Site Capillary 12/21/2023 4:05 PM CDT PCLX Blood 12/21/2023 4:02 PM CDT 12/21/2023 4:05 PM CDT Unknown Provider LAB POCT ORDERABLES- MANUAL POC [facility] [address] [place] [address], [facility] PCLX [facility] P[facility] [address] [place] [address] documented in this encounter Visit Diagnoses Diagnosis 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 Hyperlipidemia Hypothyroidism Hypertension Essential Primary documented in this encounter Admitting Diagnoses Diagnosis Other Diseases Of Salivary Glands documented in this encounter Administered Medications Inactive Administered Medications - up to 3 most recent administrations Medication Order MAR Action Action Date Dose Rate Site acetaminophen injection 1,000 mg 1,000 mg, intravenous, at 400 mL/hr, Administer over 15 Minutes, Once as needed, other, If patient has not received in previous 6 hours, Starting on Tue12/21/23 at 2001, For 1 dose, PACU (only), Oral unless RASS less than -1 or nausea/vomiting. Do not use if given in last 6 hours, Restriction Criteria (Pharmacy will review and approve if criteria met): Unable to take or tolerate medications administered via the enteral route or orally (not just NPO) New Bag 12/21/2023 8:08 PM CDT 1,000 mg 400 mL/hr acetaminophen tablet 1,000 mg (TYLENOL) 1,000 mg, oral, Every 6 hours, First dose on Tue12/22/23 at 0200 Given 12/22/2023 8:01 AM CDT 1,000 mg Given 12/22/2023 3:00 AM CDT 1,000 mg atorvastatin tablet 10 mg (LIPITOR) 10 mg, oral, Daily, First dose on Tue12/22/23 at 0900 Given 12/22/2023 8:02 AM CDT 10 mg fentaNYL injection 25 mcg (SUBLIMAZE) 25 mcg, intravenous, Every 2 min PRN, For pain 4 or greater (maximum 100 mcg). If max dose of Fentanyl is reached and if pain is greater than 4, discontinue Fentanyl: give Hydromorphone, Starting on Tue12/21/23 at 2001, PACU (only) Given 12/21/2023 8:56 PM CDT 25 mcg Given 12/21/2023 8:43 PM CDT 25 mcg Given 12/21/2023 8:23 PM CDT 25 mcg heparin (porcine) injection 5,000 Units 5,000 Units, subcutaneous, Every 8 hours scheduled, First dose on Tue12/22/23 at 0400 Given 12/22/2023 3:05 AM CDT 5,000 Units Right Upper Arm (Back) ibuprofen tablet 600 mg (MOTRIN) 600 mg, oral, Every 6 hours PRN, mild pain or score 1-3 of 10, Starting on Tue12/21/23 at 2201, Take with food or milk if GI disturbances occur with use. Given 12/22/2023 12:33 PM CDT 600 mg Given 12/21/2023 10:32 PM CDT 600 mg levothyroxine tablet 125 mcg (SYNTHROID, LEVOTHROID) 125 mcg, oral, Daily before breakfast, First dose on Meg 12/22/23 at 0700 Given 12/22/2023 6:36 AM CDT 125 mcg lisinopril-hydroCHLOROt hiazide 10-12.5 mg per tablet 1 tablet (PRINZIDE,ZESTORETIC) 1 tablet, oral, Every evening, First dose (after last modification) on Tue12/21/23 at 2245, Hold for SBP <120 Given 12/21/2023 11:23 PM CDT 1 tablet oxyCODONE IR tablet 10 mg (ROXICODONE) 10 mg, oral, Once as needed, For pain 4 or greater, Starting on Tue12/21/23 at 2002, For 1 dose, PACU (only) Given 12/21/2023 8:37 PM CDT 10 mg oxyCODONE IR tablet 10 mg (ROXICODONE) 10 mg, oral, Every 4 hours PRN, severe pain or score 7-10 of 10, or pain greater than comfort goal, Starting on Tue12/21/23 at 2201 oxyCODONE IR tablet 5 mg (ROXICODONE) 5 mg, oral, Every 4 hours PRN, moderate pain or score 4-6 of 10, Starting on Tue12/21/23 at 2201 Given 12/22/2023 8:02 AM CDT 5 mg scopolamine base 1 mg over 3 days 1 patch (TRANSDERM SCOP) 1 patch, transdermal, Administer over 72 Hours, Every 72 hours, First dose on Tue12/21/23 at 2045, Place behind right ear Contains 1.5 mg to deliver 1 mg/72 hours. Medication Applied 12/21/2023 8:37 PM CDT 1 patch Behind Right Ear documented in this encounter Active and Recently Administered Medications Times are shown in CDT. Scheduled Medication Order 12/20/2023 12/21/2023 12/22/2023 acetaminophen tablet 1,000 mg (TYLENOL) 1,000 mg, oral, Every 6 hours, First dose on Tue12/22/23 at 0200 0300 (Given - Provid er: Arelis Escudero R.N., CCRN)0801 (Given - Provider: Alyse Shah, C.S.T.) atorvastatin tablet 10 mg (LIPITOR) 10 mg, oral, Daily, First dose on Tue12/22/23 at 0900 0802 (Given - Provid er: Alyse Shah, C.S.T.) ceFAZolin injection 2,000 mg (ANCEF) (COMPLETED) 2,000 mg (rounded from 2,275 mg = 25 mg/kg ? 91 kg), intravenous, Once, On Tue12/21/23 at 1645, For 1 dose, Intra-Op, Administer within 1 hour prior to surgical incision If needed, reconstitute vial per package insert instructions. See IVAG for administration guidelines., Drug Monitoring Program: Pharmacist to adjust medication dosing based on indication and drug clearance factors., Indications: Prophylaxis, surgical 1756 (Given - Provider: Lanette Lee, INTERNET MARKETING SPECIALIST, TEST PILOT) heparin (porcine) injection 5,000 Units 5,000 Units, subcutaneous, Every 8 hours scheduled, First dose on Tue12/22/23 at 0400 0305 (Given - Provid er: Arelis Escudero R.N., CCRN) levothyroxine tablet 125 mcg (SYNTHROID, LEVOTHROID) 125 mcg, oral, Daily before breakfast, First dose on Tue12/22/23 at 0700 0636 (Given - Provid er: Arelis Escudero R.N., CCRN) lisinopril-hydroCHLOROthiaz myra 10-12.5 mg per tablet 1 tablet (PRINZIDE,ZESTORETIC) 1 tablet, oral, Every evening, First dose (after last modification) on Tue12/21/23 at 2245, Hold for SBP <120 2323 (Given - Provider: Arelis Escudero R.N., CCRN) scopolamine base 1 mg over 3 days 1 patch (TRANSDERM SCOP) 1 patch, transdermal, Administer over 72 Hours, Every 72 hours, First dose on Tue12/21/23 at 2045, Place behind right ear Contains 1.5 mg to deliver 1 mg/72 hours. 2036 (Medication Applied - Provider: Blaine Beltrán R.N.) 1257 (Due: Medication Removed - Provider: Discharge Provider, Automatic - Comment: Time automatically adjusted from order being discontinued) sennosides-docusate sodium 8.6-50 mg per tablet 2 tablet (SENOKOT-S) 2 tablet, oral, Daily at bedtime, First dose on Meg 12/22/23 at 2100, Hold for diarrhea or if receiving tube feedings. PRN Medication Order 12/20/2023 12/21/2023 12/22/2023 acetaminophen injection 1,000 mg (COMPLETED)(Linked Group 1) 1,000 mg, intravenous, at 400 mL/hr, Administer over 15 Minutes, Once as needed, other, If patient has not received in previous 6 hours, Starting on Tue12/21/23 at 2002, For 1 dose, PACU (only), Oral unless RASS less than -1 or nausea/vomiting. Do not use if given in last 6 hours, Restriction Criteria (Pharmacy will review and approve if criteria met): Unable to take or tolerate medications administered via the enteral route or orally (not just NPO) 2007 (New Bag - Provider: Blaine Beltrán R.N.) balanced salt solution ophthalmic irrigation (BSS) (CANCELED) As needed, Starting on Tue12/21/23 at 1946, Intra-Op 1946 (Given - Provider: Murray Hunter M.D.) BUPivacaine HCl 0.5 % (5 mg/mL) injection (MARCAINE) (CANCELED) As needed, Starting on Tue12/21/23 at 1758, Intra-Op 1758 (Given - Provider: Murray Hunter M.D. - Comment: 20mL 1% Lidocaine with epinepherine 1:100,000 mixed with 30mL 0.5% Bupivicaine; 10mL of the 50mL used at 1758 into left face) carboxymethylcellulose 0.5 % ophthalmic solution 1 drop (REFRESH PLUS) 1 drop, left eye, Every 10 min PRN, dry eyes, Starting on Tue12/21/23 at 2201 fentaNYL injection 25 mcg (SUBLIMAZE) (CANCELED) 25 mcg, intravenous, Every 2 min PRN, For pain 4 or greater (maximum 100 mcg). If max dose of Fentanyl is reached and if pain is greater than 4, discontinue Fentanyl: give Hydromorphone, Starting on Tue12/21/23 at 2001, PACU (only) 2006 (Given - Provider: Blaine Beltrán R.N.)2022 (Given - Provider: Blaine Beltrán R.N.)2042 (Given - Provider: Blaine Beltrán R.N.)2055 (Given - Provider: Blaine Beltrán R.N.) haloperidol lactate injection 1 mg (HALDOL) 1 mg, intravenous, Every 6 hours PRN, nausea, vomiting, Starting on Tue12/21/23 at 2201, For 48 hours, Total of 3 doses in 24 hour period. RASS must be -2 or higher to administer. Reassess for nausea or vomiting after at least 10 minutes. If nausea or vomiting persists administer next ordered antiemetic medications (order for antiemetic medication administration ondansetron then haloperidol then prochlorperazine) hydroxypropyl methylcellulose 2.5 % ophthalmic demulcent solution (GONAK) (CANCELED) As needed, Starting on Tue12/21/23 at 1906, Intra-Op 1906 (Given - Provider: Michell Ann M.D. - Comment: one drop in each eye) ibuprofen tablet 600 mg (MOTRIN) 600 mg, oral, Every 6 hours PRN, mild pain or score 1-3 of 10, Starting on Tue12/21/23 at 2201, Take with food or milk if GI disturbances occur with use. 2231 (Given - Provider: Arelis Escudero R.N., CCRN) 1233 (Given - Provider: Yousuf Lacey R.N.) lidocaine-EPINEPHrine 1 %-1:100,000 injection (XYLOCAINE W/EPI) (CANCELED) As needed, Starting on Tue12/21/23 at 1758, Intra-Op 1758 (Given - Provider: Murray Hunter M.D. - Comment: 20mL 1% Lidocaine with epinepherine 1:100,000 mixed with 30mL 0.5% Bupivicaine; 10mL of the 50mL used at 1758 into left face) naloxone injection 0.2 mg (NARCAN) 0.2 mg, intravenous, Once as needed, respiratory depression, Starting on Tue12/21/23 at 2201, For 1 dose, For respiratory rate less than 8 breaths/min. Do not exceed 0.4 mg total dose. Notify service if given. May repeat as directed by prescriber. ondansetron (PF) injection 4 mg (ZOFRAN) 4 mg, intravenous, Every 6 hours PRN, nausea, vomiting, Starting on Tue12/21/23 at 2201, For 48 hours, Reassess for nausea or vomiting after at least 10 minutes. If nausea or vomiting persists administer next ordered antiemetic medications (order for antiemetic medication administration ondansetron then haloperidol then prochlorperazine). oxyCODONE IR tablet 10 mg (ROXICODONE) (COMPLETED) 10 mg, oral, Once as needed, For pain 4 or greater, Starting on Tue12/21/23 at 2001, For 1 dose, PACU (only) 2036 (Given - Provider: Blaine Beltrán R.N.) oxyCODONE IR tablet 10 mg (ROXICODONE)(Linked Group 2) 10 mg, oral, Every 4 hours PRN, severe pain or score 7-10 of 10, or pain greater than comfort goal, Starting on Tue12/21/23 at 2201 0802 (See Alternativ e - Provider: Alyse Shah, C.S.T.) oxyCODONE IR tablet 5 mg (ROXICODONE)(Linked Group 2) 5 mg, oral, Every 4 hours PRN, moderate pain or score 4-6 of 10, Starting on Tue12/21/23 at 2201 0802 (Given - Provid er: Alyse Shah, C.S.T.) oxymetazoline 0.05 % nasal spray (AFRIN) (CANCELED) As needed, Starting on Tue12/21/23 at 1733, Intra-Op 1733 (Given - Provider: Maxine Yuen M.D.) prochlorperazine injection 5 mg (COMPAZINE) 5 mg, intravenous, Every 6 hours PRN, nausea, vomiting, Starting on Tue12/21/23 at 2201, For 48 hours, RASS must be -2 or higher to administer. Reassess for nausea/vomiting after at least 10 minutes. If nausea or vomiting persists administer next ordered antiemetic medications (order for antiemetic medication administration ondansetron then haloperidol then prochlorperazine) white petrolatum-mineral oil ophthalmic ointment 0.25 inch 0.25 inch, left eye, Bedtime PRN, other, if unable to close left eye completely or having eye irritation/dryness, Starting on Tue12/21/23 at 2201 Linked Groups Order Group 1: acetaminophen tablet 1,000 mg (TYLENOL) (COMPLETED) 1,000 mg, oral, Once as needed, other, If patient has not received in the previous 6 hours, Starting on Tue12/21/23 at 2001, For 1 dose, PACU (only), Oral unless RASS less than -1 or nausea/vomiting. Do not use if given in last 6 hours Or acetaminophen injection 1,000 mg (COMPLETED)Jump to med 1,000 mg, intravenous, at 400 mL/hr, Administer over 15 Minutes, Once as needed, other, If patient has not received in previous 6 hours, Starting on Tue12/21/23 at 2001, For 1 dose, PACU (only), Oral unless RASS less than -1 or nausea/vomiting. Do not use if given in last 6 hours, Restriction Criteria (Pharmacy will review and approve if criteria met): Unable to take or tolerate medications administered via the enteral route or orally (not just NPO) Group 2: oxyCODONE IR tablet 5 mg (ROXICODONE)Jump to med 5 mg, oral, Every 4 hours PRN, moderate pain or score 4-6 of 10, Starting on Tue12/21/23 at 2200 Or oxyCODONE IR tablet 10 mg (ROXICODONE)Jump to med 10 mg, oral, Every 4 hours PRN, severe pain or score 7-10 of 10, or pain greater than comfort goal, Starting on Tue12/21/23 at 2200 documented in this encounter Care Teams Continuous Improvement Intern Relationship Specialty Start Date End Date Elsewhere, Pcp PCP - General Internal Medicine 12/19/23 documented as of this encounter
--- OUTSIDE RECORDS SUMMARY | 2023-12-30 07:11 | XMS_ITS | Encounter Summary ---
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 [address] [place] [address] [phone] Sarbjit Godfrey M.D. [address] [place] [address] [phone] Anesthesia Record Procedure Summary Procedure Name Responsible Anesthesiologist Anesthesia Start Time Anesthesia Stop Time Partial PAROTIDECTOMY. (Left: Neck) Marcos Diggs M.D. 12/21/23 1726 12/21/232002 Events Date Time Event Comment 12/21/2023 1354 1726 An Start Machine/Equipme nt Checked Infection Precautions Followed Procedure/Site Verified NPO Status Verified Supine Standard ASA Monitors Applied 173 An Induction 1740 An Intubation 174 Turnover to Proceduralist 1820 Proc Start 1935 Proc Fin 1950 Turnover to ANE Staff 1950 Airway Removal Criteria Met 1950 Extubation/Airway Removed 1951 an stop data 2002 An End I completed my handoff to the receiving staff during which we 1. Identified the patient 2. Identified the responsible provider 3. Reviewed the pertinent medical history 4. Discussed the surgical course 5. Reviewed intra-op anesthesia management and issues during anesthesia 6. Set expectations for post-procedure period 7. Allowed opportunity for questions and acknowledgement of understanding. Meds Name Total fentanyl injection 50 mcg/mL 50 mcg lidocaine 2% (mg) injection 100 mg succinylcholine 20 mg/mL injection 140 m g ePHEDrine PF 5 mg/mL syringe injection 1 0 mg ondansetron 4 mg/2 mL injection 4 mg propofol 10 mg/mL infusion 919.1 mg propofol 10 mg/mL injection 150 mg remifentaniL 20 mcg/mL in NaCl 0.9% 100 mL infusion (ULTIVA) 2.04 mg ceFAZolin injection 2,000 mg (ANCEF) 2 g phenylephrine 20 mg/250 mL infusion 0.99 mg dexAMETHasone (DECADRON) injection 4 mg/ mL 4 mg Lactated Ringers Free Drip 200 mL lactated ringers free drip 400 mL * Agents No agents on file. * Blood No blood administrations on file. Lines, Drains, and Airways Type Details Placement Removal Peripheral IV Placement Date: 12/11 ; Placement Time: 1604; Catheter Size: 22 G; Orientation: Anterior, Lower, Right; Location: Forearm; Site Prep: Chlorhexidine (Preferred); Technique: Anatomical landmarks (3); Inserted by: ÁNGEL; Insertion Attempts: 1; Removal Date: 12/22/23; Removal Time: 1058 12/21/23 1604 by Darrick Hong 12/22/23 1058 by Yousuf Lacey, RMarcelinoNMarcelino ETT Placement Date: 12/11 ; Placement Time: 174 (created via procedure documentation); Mask Ventilation: Oral/Nasal airway needed; Technique: Video laryngoscopy; Type: Johnny; Single Lumen Tube Size: 6 mm; Cuffed: Yes; Location: Nasal; Grade View: Grade 1; Insertion Attempts: 1; Placement Verification: Bilateral breath sounds, Positive ETCO2, Symmetrical chest wall movement; Removal Date: 12/21/23; Removal Time: 195012/21/231739 by Yolanda Durham APRN, CRNA, D.NMarcelinoP. 12/21/231950 by Lanette Lee APRN, CRNA Peripheral IV Placement Date: 12/11 ; Placement Time: 1744; Catheter Size: 20 G; Orientation: Left; Location: Hand; Removal Date: 12/22/23; Removal Time: 105712/21/231744 by Lanette Lee APRN, CRNA 12/22/231057 by Yousuf Lacey R.NMarcelino Closed/Suction Drain 12/21/23; 1936; 1; Inferior, Left, Dorsal; Head; Bulb; 10 Fr. 12/21/231936 by Damien Hoyt R.NMarcelino 12/22/231057 by Yuosuf Lacey RMarcelinoN. documented in this encounter Social History Tobacco Use Types Packs/Day Years Used Date Smoking Tobacco: Former Cigarettes Q uit: 09/20/1991 Alcohol Use Standard Drinks/Week Comments Yes 8 (1 standard drink = 0.6 oz pur e alcohol) [facility] Utilities Answer Date Recorded In the past 12 months has [facility], [employer], oil, or water [employer] threatened to shut off services in your [...] often do you attend chur ch or lutheran services? Never 02/25/2021 Do you belong to any clubs o r organizations such as sikhism groups, unions, fraternal or athletic groups, or [...] and heating? 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 - 12/21/2023 9:37 PM CDT Patient: Zaida Pastor Procedure Summary Date: 12/21/23 Room / Location: [place] [address] / [facility] in [place], [place] Anesthesia Start: 1725 Anesthesia Stop: 2002 Procedures: Partial PAROTIDECTOMY. (Left: Neck) EXPLORATION PARAPHARYNGEAL SPACE (Left: Neck) Diagnosis: Other Diseases Of Salivary Glands (Other Diseases Of Salivary Glands [K11.8].) Providers: Daniel Domínguez M.D. Responsible Provider: Marcos Diggs M.D. Anesthesia Type: general ASA Status: 2 Anesthesia Type: general Last vitals Vitals Value Taken Time BP 170/73 12/21/230 Temp 36.6 ??C 12/21/232118 Pulse 59 12/21/232136 Resp 15 12/21/232136 SpO2 98 % 12/21/232136 Vitals shown include unfiled device data. Please reference Vitals flowsheet for most recent vital signs. Anesthesia Post Evaluation Patient Disposition: general care unit Cardiovascular status: hemodynamics (HR & BP) acceptable Respiratory status: patent airway with spontaneous effort Temperature: normothermic Oxygen requirements: nasal cannula Level of consciousness: awake Pain score: pain adequately controlled and/or at baseline Post Op nausea/vomiting: none Hydration status: euvolemic * Anesthesia Procedure Notes - Yolanda Durham APRN, CRNA, D.N.P. - 12/21/2023 5:48 PM CDTAssociated Order(s): Airway Airway Date/Time: 12/21/2023 5:40 PM Performed by: Yolanda Durham APRN, CRNA, D.N.P. Authorized by: Tati Perez M.D. Patient location during procedure: OR / Procedure Area PROCEDURE DETAILS: Mask difficulty assessment: oral/nasal airway needed Final airway type: video laryngoscope Laryngeal Manipulation: no Final best view of glottic structures - Cormack/Lehane Score: grade 1 ETT location: nasal VL device: glide scope [place] scope blade size: 3 Tube size: 6 Nasal tube type: johnny Cuffed: yes Leak Test Performed: no Number of attempt to successful placement: 1 Airway confirmation: bilateral breath sounds, positive ETCO2 and bilateral chest rise Other previous techniques attempted: none PRE PROCEDURE DETAILS: Pre evaluation for airway management: procedure Urgency: elective Preop assessment of probable difficulty: no difficulty anticipated Preoxygenation: bag valve mask SEDATION / ANESTHESIA Anesthesia method: anesthesia POST PROCEDURE DETAILS: Procedure outcome: successful Notable Events: no complications * Anesthesia Preprocedure Evaluation - Sarbjit Godfrey M.D. - 12/21/2023 1:53 PM CDT Preprocedure Anesthesia & H&P Assessment Procedure Summary Date/Time: 12/21/23 1450 Procedures: Partial PAROTIDECTOMY. (Left: Neck) PAROTIDECTOMY, TOTAL. (Left: Neck) HARVEST FAT GRAFT ABDOMEN. (Abdomen) EXPLORATION PARAPHARYNGEAL SPACE, proceed as indicated. (Left: Neck) Diagnosis: Other Diseases Of Salivary Glands [K11.8] Pre-op diagnosis: Other Diseases Of Salivary Glands [K11.8]. Location: [address] [facility] / [facility] in [place], [place] Providers: Daniel Domínguez M.D. Pertinent components of the patient's history including current problem list, medical history, surgical history, family history, social history, medications and allergies were reviewed. Present illness and pre-op diagnosis were confirmed. The planned surgery / procedure was verified with the patient / legal guardian. The patient's general health condition remains unchanged RELEVANT COMORBID CONDITIONS ANESTHESIA (+) Anesthesia Complication Personal History CV (+) Hypertension Essential Primary ENDO (+) Diabetes Mellitus Type 2 Without Complication (HCC) (+) Hypothyroidism OBJECTIVE PHYSICAL EXAMINATION Airway (HEENT) Mallampati: II TM Distance: >3 FB Neck ROM: Full Mouth Opening: >3 cm Upper Lip Bite Test Class: I Cardiovascular Rhythm: Regular Rate: Normal Cardiovascular Assessment: cardiovascular normal Functional Capacity: >4 METS Pulmonary Pulmonary Assessment: Clear General / Constitutional Constitutional Assessment: Normal General State of Health:: healthy appearing and calm ASSESSMENT / PLAN ANESTHESIA PLAN ASA: 2 Anesthesia Plan: general Patient seen and allergies reviewed, anesthesia plan and risks discussed directly with patient /legal guardian or through an machine filler shredder. Risks/Benefits/Alternatives of Blood transfusion discussed with patient / legal guardian, includingan opportunity to ask questions and/or decline some or all transfusion therapies. The patient / legal guardian consented to the use of all blood products, as deemed medically necessary Approval to Proceed: approved for anesthesia documented in this encounter Plan of Treatment Upcoming Encounters Date Type Department Care Team (Late st Contact Info) Description 01/31/2024 8:30 AM CDT Office Visit Department of Otorhinolaryngology in [place], [place] [address] [place] [phone] Daniel Domínguez M.D. [address] [place] [phone] documented as of this encounter Procedures Procedure Name Priority Date/Time Associated Diagnosis Comments LDA ANE ENDOTRACHEAL AIRWAY Routine 12/21/2023 5:40 PM CDT documented in this encounter Results * LDA ANE ENDOTRACHEAL AIRWAY (12/21/2023 5:40 PM CDT) Narrative Yolanda Durham APRN, MACHINE FILLER SHREDDER, D.N.P. - 12/21/2023 5:40 PM CDT Yolanda Durham APRN, CRNA D.N.P. ? 12/21/2023 ??5:49 PM Airway Date/Time: 12/21/2023 5:40 PM Performed by: Yolanda Durham APRN, CRNA D.N.P. Authorized by: Tati Perez M.D. ?? Patient location during procedure: OR / Procedure Area PROCEDURE DETAILS: Mask difficulty assessment: oral/nasal airway needed Final airway type: video laryngoscope Laryngeal Manipulation: no ?? Final best view of glottic structures - Cormack/Lehane Score: grade 1 ETT location: nasal VL device: glide scope [place] scope blade size: 3 Tube size: 6 Nasal tube type: johnny Cuffed: yes Leak Test Performed: no ?? Number of attempt to successful placement: 1 Airway confirmation: bilateral breath sounds, positive ETCO2 and bilateral chest rise Other previous techniques attempted: none PRE PROCEDURE DETAILS: Pre evaluation for airway management: procedure Urgency: elective Preop assessment of probable difficulty: no difficulty anticipated Preoxygenation: bag valve mask SEDATION / ANESTHESIA Anesthesia method: anesthesia POST PROCEDURE DETAILS: ? Procedure outcome: successful ?? Notable Events: no complications Tati Perez M.D. ANESTHESIA ORDERAB LES documented in this encounter Visit Diagnoses Not on filedocumented in this encounter Administered Medications Inactive Administered Medications - up to 3 most recent administrations Medication Order MAR Action Action Date Dose Rate Site ceFAZolin injection 2,000 mg (ANCEF) 2,000 mg (rounded from 2,275 mg = 25 mg/kg ? 91 kg), intravenous, Once, On Tue12/21/23 at 1645, For 1 dose, Intra-Op, Administer within 1 hour prior to surgical incision If needed, reconstitute vial per package insert instructions. See IVAG for administration guidelines., Drug Monitoring Program: Pharmacist to adjust medication dosing based on indication and drug clearance factors., Indications: Prophylaxis, surgical Given 12/21/2023 5:57 PM CDT 2 g dexAMETHasone injection (DECADRON) intravenous, As needed, Starting on Tue12/21/23 at 1809, Anesthesia Intra-op Given 12/21/2023 6:09 PM CDT 4 mg ePHEDrine (PF) injection intravenous, As needed, Starting on Tue12/21/23 at 1750, Anesthesia Intra-op Given 12/21/2023 5:50 PM CDT 10 mg fentaNYL injection (SUBLIMAZE) intravenous, As needed, Starting on Tue12/21/23 at 1737, Anesthesia Intra-op Given 12/21/2023 5:37 PM CDT 50 mcg Lactated Ringer's intravenous, Continuous Infusion: Per Instructions PRN, Starting on Tue12/21/23 at 1730, Anesthesia Intra-op New Bag 12/21/2023 5:30 PM CDT Lactated Ringer's intravenous, Continuous Infusion: Per Instructions PRN, Starting on Tue12/21/23 at 1745, Anesthesia Intra-op New Bag 12/21/2023 5:45 PM CDT lidocaine (PF) (cardiac) injection intravenous, As needed, Starting on Tue12/21/23 at 1738, Anesthesia Intra-op Given 12/21/2023 5:38 PM CDT 100 mg ondansetron (PF) injection (ZOFRAN) intravenous, As needed, Starting on Tue12/21/23 at 1913, Anesthesia Intra-op Given 12/21/2023 7:13 PM CDT 4 mg phenylephrine 80 mcg/mL in NaCl 0.9% 250 mL infusion intravenous, Continuous Infusion: Per Instructions PRN, Starting on Tue12/21/23 at 1802, Anesthesia Intra-op Rate/Dose Change 12/21/2023 7:15 PM CDT 0.05 mcg/kg/min 3.413 mL/hr Rate/Dose Change 12/21/2023 7:00 PM CDT 0.01 mcg/kg/min 0. 683 mL/hr Rate/Dose Change 12/21/2023 6:55 PM CDT 0.1 mcg/kg/min 6.8 25 mL/hr propofol 10 mg/mL infusion (DIPRIVAN) intravenous, Continuous Infusion: Per Instructions PRN, Starting on Tue12/21/23 at 1738, Anesthesia Intra-op Rate/Dose Change 12/21/2023 6:28 PM CDT 75 mcg/kg/min 40.95 mL/hr Rate/Dose Change 12/21/2023 5:50 PM CDT 100 mcg/kg/min 54. 6 mL/hr New Bag 12/21/2023 5:38 PM CDT 125 mcg/kg/min 68.25 mL/ hr propofoL injection (DIPRIVAN) intravenous, As needed, Starting on Tue12/21/23 at 1737, Anesthesia Intra-op Given 12/21/2023 5:37 PM CDT 150 mg remifentaniL 20 mcg/mL in NaCl 0.9% 100 mL infusion (ULTIVA) intravenous, Continuous Infusion: Per Instructions PRN, Starting on Tue12/21/23 at 1738, Anesthesia Intra-op New Bag 12/21/2023 5:38 PM CDT 0.2 mcg/kg/min 54.6 mL/hr succinylcholine (PF) injection (ANECTINE) intravenous, As needed, Starting on Tue12/21/23 at 1738, Anesthesia Intra-op Given 12/21/2023 5:38 PM CDT 140 mg documented in this encounter Care Teams Lamination Machine Operator Relationship Specialty Start Date End Date Elsewhere, Pcp PCP - General Internal Medicine 12/19/23 documented as of this encounter
--- OUTSIDE RECORDS SUMMARY | 2023-12-30 07:11 | XMS_ITS | Referral Summary ---
Author Name Unknown Organization [facility] Address [address] [place] [address] Care Team Providers Care Sheet Layer Name Role Phone Elsewhere, Pcp Primary Care Provider Unavailabl e Source Comments Patient records contain information from all sites at [facility]. For routine questions regarding patient records, call [phone] during business hours, M-F 8:00 AM - 5:00 PM Central Time. Record requests for emergency care only can be directed to [phone] at any time.[facility] Encounters Date Type Department Care Team Description 12/23/2023 Clinical Communication Department of Otorhinolaryngology in [place], [place] [address] [place] [phone] Daniel Domínguez M.D. Post Surgery Question 12/21/2023 12:10 PM CDT - 12/22/2023 12:57 PM CDT Hospital Encounter [facility], Sixth Floor [address] [place] [phone] Daniel Domínguez M.D. Other Diseases Of Salivary Glands Discharge Disposition: Home or Self Care 12/21/2023 5:26 PM CDT Anesthesia Event [facility] [address] [place] [phone] Marcos Diggs M.D. Onigkeit, James A, M.D. 12/21/2023 2:50 PM CDT - 12/21/2023 5:41 PM CDT Surgery [facility] [address] [place] [phone] Daniel Domínguez M.D. Partial PAROTIDECTOMY. 12/20/2023 8:22 AM CDT - 12/20/2023 11:59 PM CDT Hospital Encounter Department of Laboratory Medicine and Pathology, [facility], in [address] [phone] Lai Gallego APRN, C.N.P., M.S. Preanesthetic Medical Exam; Mass Parotid; Diabetes Mellitus Type 2 Without Complication (HCC) Discharge Disposition: Home or Self Care 12/20/2023 7:30 AM CDT Comprehensive Visit Preoperative Evaluation Center in [address] [phone] Daniel Domínguez M.D. Lizabeth Gillette APRN, C.N.P., M.S.N. Preanesthetic Medical Exam (Primary Dx); Other Diseases Of Salivary Glands; Anesthesia Complication Personal History; Apnea Sleep Obstructive; Temporomandibular Joint Disorder; Hypertension Essential Primary; Diabetes Mellitus Type 2 Without Complication (HCC); Hyperlipidemia; Hypothyroidism; Obesity Body Mass Index 30-39.9 Adult 12/14/2023 1:15 PM CDT Clinical Communication Virtual Review in [place], [place] [address] [place] [address] 11/18/2023 Clinical Communication Department of Otorhinolaryngology in [address] [phone] Daniel Domínguez M.D. presurgery questions 11/16/2023 Orders Only Preoperative Evaluation Center in [address] [phone] Lai Gallego APRN, C.N.P., M.S. Preanesthetic Medical Exam (Primary Dx); Mass Parotid 11/16/2023 2:00 PM HAND BULLDOZER Comprehensive Visit Department of Otorhinolaryngology in [address] [phone] Domínguez, L, M.D. Mass Parotid (Primary Dx); Other Diseases Of Salivary Glands 11/15/2023 Clinical Communication Department of Otorhinolaryngology in [place], [place] [address] [place] [address] Prescheduling, Provider 11/10/2023 [facility] [address] [place] [address] Liss Madera M.D. Other Diseases Of Salivary Glands (Primary Dx) from Last 3 Months Allergies No known active allergies Medications Medication Sig Dispensed Refills Start Date End Date Status atorvastatin (LIPITOR) 10 mg tablet Take 10 mg by mouth. 11/27/2020 Active levothyroxine (SYNTHROID, LEVOTHROID) 125 mcg tablet Take 1 tablet by mouth every morning. 05/19/2016 Active lisinopril-hydroC HLOROthiazide (PRINZIDE,ZESTORE TIC) 10-12.5 mg per tablet Take 1 tablet by mouth. 05/19/2016 Active FISH OIL-DHA-EPA ORAL Take 1 capsule by mouth every morning. 05/19/2016 Active multivitamin tablet Take 1 tablet by mouth every morning. 05/19/[address] Active [address] tablet Take 81 mg by mouth. 01/30/2019 Active magnesium 250 mg tablet Take 250 mg by mouth. 01/30/2019 Active cholecalciferol (VITAMIN D3) 25 mcg (1,000 Unit) capsule Take 1 capsule by mouth. 08/11/2010 Active loratadine (CLARITIN) 10 mg tablet Take 1 tablet by mouth every evening. 05/19/2016 Active glucosamine sulfate (GLUCOSAMINE) 500 mg capsule Take 500 mg by mouth 3 (three) times a day. Active co-enzyme Q-10 (CO Q-10) 100 mg capsule Take 1 capsule by mouth daily. 06/26/2013 Active oxyCODONE (ROXICODONE) 5 mg immediate release tabletIndications :Acute Pain Take 1 tablet (5 mg total) by mouth every 4 (four) hours as needed for pain Indication: Acute Pain. 12 tablet 12/21/2023 Active sennosides-docusa te sodium (Senna with Docusate Sodium) 8.6-50 mg per tablet Take 1 tablet by mouth 2 (two) times a day. 12/21/2023 Active acetaminophen (TYLENOL) 500 mg tablet Take 2 tablets (1,000 mg total) by mouth every 6 (six) hours as needed for pain. 12/22/2023 Active carboxymethylcell ulose (REFRESH PLUS) 0.5 % ophthalmic solution Administer 1 drop into the left eye every 10 (ten) minutes as needed for dry eyes. 12/22/2023 Active ibuprofen (ADVIL,MOTRIN) 200 mg tablet Take 3 tablets (600 mg total) by mouth every 8 (eight) hours as needed for pain. Take with food. 12/22/2023 Active scopolamine base (TRANSDERM SCOP) 1 mg over [address] 1 patch on the skin every third day for 2 doses. Remove the patch you had on from the hospital on 12/23 and replace with a new patch; remove this second patch and replace with a new patch on 12/26; Remove this third patch on 12/29 Discontinue using and remove patch if you have dizziness, nausea/vomiting, blurry vision, imbalance, or severe weakness. 2 patch 12/24/2023 12/28/2023 Active Problems Problem Noted Date Diagnosed Date Anesthesia Complication Personal History 024 Overview: Difficult IV start. Hard to find. Mass Parotid 11/16/2023 Hyperlipidemia 11/16/2023 Diabetes Mellitus Type 2 Without Complication Overview: 07/07/18 diagnosed based on Fasting Glucose 129. A1C then 6.2. Apnea Sleep Obstructive 03/22/2017 Temporomandibular Joint Disorder 08/17/2013 Hypertension Essential Primary 07/05/2007 Hypothyroidism 07/05/2007 Social History Tobacco Use Types Packs/Day Years Used Date Smoking Tobacco: Former Cigarettes Q uit: 09/20/1991 Tobacco Cessation:Counseling Given: Not Answered Alcohol Use Standard Drinks/Week Comments Yes 8 (1 standard drink = 0.6 oz pur e alcohol) [facility] Utilities Answer Date Recorded In the past 12 months has e [employer], gas, oil, or water [employer] threatened to shut off services in your [...] often do you attend chur ch or congregation services? Never 02/25/2021 Do you belong to [...] and heating? Not hard at all 02/25/2021 [facility] of Occupat ional Health - Occupational Stress [...] your living situation today? I have a [facility] place to live 12/22/2023 Education Answer Date Recorded What is the highest level of school you have completed or the highest degree you have received? Some college, no degree 02/25/2021 Sex and Gender Information Value Date Recorded Sex Assigned at Female 11/15/2023 8:06 PM HAND BULLDOZER Gender Identity Female 11/15/2023 8:06 PM HAND BULLDOZER Sexual Orientation Straight 11/15/2023 8: 06 PM HAND BULLDOZER Last Filed Vital Signs Vital Sign Reading [...] Mass Index 32.8 12/21/2023 12:29 PM CDT Plan of Treatment Upcoming Encounters Date Type Department Care Team (Late st Contact Info) Description 01/31/2024 8:30 AM CDT Office Visit Department of Otorhinolaryngology in [place], [place] [address] [place] [address] Daniel Domínguez M.D. 200 [place] [phone] Procedures Procedure Name Priority Date/Time Associated Diagnosis Comments GLUCOSE POCT, B Routine 12/21/2023 8:05 PM CDT ADULT OXYGEN THERAPY Routine 12/21/2023 8:02 PM CDT REMOTE OXIMETRY MONITORING CONT. STAT 12/21/2023 8:02 PM CDT SURGICAL PATHOLOGY, [facility] Routine 12/21/2023 7:07 PM CDT Other Diseases Of Salivary Glands LDA ANE ENDOTRACHEAL AIRWAY Routine 12/21/2023 5:40 PM CDT EXPLORATION PARAPHARYNGEAL SPACE 12/21/2023 5:05 PM CDT Other Diseases Of Salivary Glands Case Notes INSPECTOR CLIP ON SUNGLASSES at 12:23 PAROTIDECTOMY 12/21/2023 5:05 PM CDT Other Diseases Of Salivary Glands Case Notes INSPECTOR CLIP ON SUNGLASSES at 12:23 GLUCOSE POCT, B Routine 12/21/2023 4:02 PM CDT HEMOGLOBIN A1C, B Routine 12/20/2023 8:3 8 AM CDT Diabetes Mellitus Type 2 Without Complication (HCC) BASIC METABOLIC PANEL, S/P Routine 12/20/2023 8:38 AM CDT Preanesthetic Medical Exam Mass Parotid CBC WITHOUT DIFFERENTIAL, B Routine 12/20/2023 8:38 AM CDT Preanesthetic Medical Exam Mass Parotid OUTSIDE CT NEURO Routine 11/07/2023 12:15 PM HAND BULLDOZER EXTI LIPID PANEL W REFLEX MEASURED LDL Routine 03/06/2021 9:05 AM CDT EXTI THYROID-STIMULATING HORMONE-SENSITIVE (S-TSH), S Routine 04/30/2020 8:31 AM CDT from Last 3 Months or Most Recently Relevant to Health Maintenance Results * Glucose, POCT (12/21/2023 8:05 PM CDT) Only the most recent of2 resultswithin the time period is included. Glucose, POCT, B 133 70 - 140 mg/dL 12/21/2023 9:17 PM CDT PCLX Site Capillary 12/21/2023 9:17 PM CDT PCLX Blood 12/21/2023 8:05 PM CDT 12/21/2023 9:17 PM CDT Unknown Provider LAB POCT ORDERABLES- MANUAL POC [facility] [address] [place] [address], [facility] PCLX [facility] P[facility] [address] [place] [address] * Surgical Pathology, Frozen Lab (12/21/2023 7:07 [...] and periglandular lymph nodes are not identified. Account Development Manager tissue submitted for frozen and permanent sections. [...] Daniel Domínguez M.D. LAB SURG PATH ORDERA [facility] [address] [place] [address], [facility] [address] [place] [address] * LDA ANE ENDOTRACHEAL AIRWAY (12/21/2023 5:40 PM CDT) Narrative Yolanda Durham APRN, CRNA, D.N.P. - 12/21/2023 5:40 PM CDT Yolanda Durham APRN, CRNA, D.N.P. ? 12/21/2023 ??5:49 PM Airway Date/Time: 12/21/2023 5:40 PM Performed by: Yolanda Durham APRN, CRNA, D.N.P. Authorized by: Tati Perez M.D. ?? Patient location during procedure: OR / Procedure Area PROCEDURE DETAILS: Mask difficulty assessment: oral/nasal airway needed Final airway type: video laryngoscope Laryngeal Manipulation: no ?? Final best view of glottic structures - Cormack/Lehane Score: grade 1 ETT location: nasal VL device: glide scope [place] scope blade size: 3 Tube size: 6 [...] complications Tati Perez M.D. ANESTHESIA ORDERAB LES * (ABNORMAL) CBC without Differential (12/20/2023 8:38 AM CDT) Hemoglobin 13.1 11.6 - 15.0 g/dL 12/20/2023 10:05 AM CDT DTL Hematocrit 39.2 35.5 - 44.9 % 12/20/2023 10:05 AM CDT DTL Erythrocytes 4.07 3.92 - 5.13 x10(12)/L 12/20/2023 10:05 AM CDT DTL MCV 96.3 78.2 - 97.9 fL 12/20/2023 10:05 AM CDT DTL RBC Distrib Width 12.5 12.2 - 16.1 % 12/20/2023 10:05 AM CDT DTL Platelet Count 232 157 - 371 x10(9)/L 12/20/2023 10:05 AM CDT DTL Leukocytes 11.0(H) 3.4 - 9.6 x10(9)/L 12/20/2023 10:05 AM CDT DTL Blood (Blood, Venous) 12/20/2023 8:38 AM CDT 12/20/2023 9:04 AM CDT Cassidy Ayoub APRN.N.P., M.S. [place] [address], [facility] [address] [place] [address] * (ABNORMAL) Hemoglobin A1c (12/20/2023 8:38 AM CDT) Hemoglobin A1c, B 6.4(H) 4.0 - 5.6 % 12/20/2023 10:30 AM CDT DTL Comment: Hemoglobin A1c values of 5.7-6.4 percent indicate an increased risk for developing diabetes mellitus. In diabetic patients, HbA1c goals should be discussed with healthcare provider. Blood (Blood, Venous) 12/20/2023 8:38 AM CDT 12/20/2023 9:04 AM CDT Lizabeth Gillette APRN, C.N.P., M.S.N. LAB BLO OD ADD-ON Performing Organization Address City/[facility]/ZIP Co de Phone Number [facility] [address] [place] [address], [facility] DTL [facility] [address] [place] [address] * Basic Metabolic Panel (12/20/2023 8:38 AM CDT) [facility] Potassium, S 3.9 3.6 - 5.2 mmol/L 12/20/2023 9:49 AM CDT DTL Sodium, S 142 135 - 145 mmol/L 12/20/2023 9:49 AM CDT DTL Chloride, S 103 98 - 107 mmol/L 12/20/2023 9:49 AM CDT DTL Bicarbonate, S 28 22 - 29 mmol/L 12/20/2023 9:49 AM CDT DTL Anion Gap 11 7 - 15 12/20/2023 9:49 AM CDT DTL BUN (Blood Urea Nitrogen), S 15 6 - 21 mg/dL 12/20/2023 9:49 AM CDT DTL Creatinine 0.84 0.59 - 1.04 mg/dL 12/20/2023 9:49 AM CDT DTL Estimated GFR (eGFR) 74 >=60 mL/min/BSA 12/20/2023 9:49 AM CDT DTL Comment: Estimated GFR calculated using the 2020 CKD_EPI creatinine equation. Calcium, Total, S 9.9 8.8 - 10.2 mg/dL 12/20/2023 9:49 AM CDT DTL Glucose, S 120 70 - 140 mg/dL 12/20/2023 9:49 AM CDT DTL Blood (Blood, Venous) 12/20/2023 8:38 AM CDT 12/20/2023 9:25 AM CDT Lai Gallego APRN, C.N.P., M.S. LAB BLO OD ADD-ON [facility] [address] [place] [address], [facility] [address] [place] [address] * CT SOFT TISSUE NECK W CON-Outside CT Neuro (11/07/2023 12:15 PM HAND BULLDOZER) Narrative [facility] - 11/10/2023 10:55 AM HAND BULLDOZER This order has been created and auto-finalized to support the import of outside images. If available, original interpretation can be found on the Media Tab in Chart Review, in Document Viewer, or as an image in QREADS. If a re-interpretation or overread is required please follow defined workflow. ?? Provider Not In System IMG CT PROCEDURES [facility] NA from Last 3 Months or Most Recently Relevant to Health Maintenance Advance Directives For more information, please contact: [phone] * Full Code (Latest Code Status on File) Date Activated Date Inactivated Comments 12/21/2023 10:01 PM 12/22/2023 3:02 PM Question Answer Comments Full Code: Not Discussed Due to: Patient not available Care Teams Sheet Layer Relationship Specialty Start Date End Date Elsewhere, Pcp PCP - General Internal Medicine 12/19/23
--- OUTSIDE RECORDS SUMMARY | 2023-12-30 07:11 | XMS_ITS | Clinical Summary ---
Author Name Unknown Organization [facility] Address [address] [place] [address] Care Team Providers Care Soot Blower Name Role Phone Elsewhere, Pcp Primary Care Provider Unavailabl e Source Comments Patient records contain information from all sites at [facility]. For routine questions regarding patient records, call [phone] during business hours, M-F 8:00 AM - 5:00 PM Central Time. Record requests for emergency care only can be directed to [phone] at any time.[facility] Allergies No known active allergies Medications Medication [...] 08/17/2013 Hypertension Essential Primary 07/05/2007 Hypothyroidism 07/05/2007 Encounters Date Type Department Care Team Description 12/23/2023 Clinical Communication Department of Otorhinolaryngology in [place], [place] [address] [place] [phone] Daniel Domínguez M.D. Post Surgery Question 12/21/2023 5:26 PM CDT Anesthesia Event [facility] [address] [place] [phone] Marcos Diggs M.D. Onigkeit, James A, M.D. 12/21/2023 2:50 PM CDT - 12/21/2023 5:41 PM CDT Surgery [facility] OR [address] [place] [phone] Daniel Domínguez M.D. Partial PAROTIDECTOMY. 12/21/2023 12:10 PM CDT - 12/22/2023 12:57 PM CDT Hospital Encounter [facility], [facility], Sixth Floor [address] [place] [phone] Daniel Domínguez M.D. Other Diseases Of Salivary Glands Discharge Disposition: Home or Self Care 12/20/2023 8:22 AM CDT - 12/20/2023 11:59 PM CDT Hospital Encounter Department of Laboratory Medicine and Pathology, [facility], in [place], [place] [address] [place] [phone] Lai Gallego APRN, C.N.P., M.S. Preanesthetic Medical Exam; Mass Parotid; Diabetes Mellitus Type 2 Without Complication (HCC) Discharge Disposition: Home or Self Care 12/20/2023 7:30 AM CDT Comprehensive Visit Preoperative Evaluation Center in [place], [place] [address] [place] [phone] Daniel Domínguez M.D. Frank, Amy L, APRN, C.N.P., M.S.N. Preanesthetic Medical Exam (Primary Dx); Other Diseases Of Salivary Glands; Anesthesia Complication Personal History; Apnea Sleep Obstructive; Temporomandibular Joint Disorder; Hypertension Essential Primary; Diabetes Mellitus Type 2 Without Complication (HCC); Hyperlipidemia; Hypothyroidism; Obesity Body Mass Index 30-39.9 Adult 12/14/2023 1:15 PM CDT Clinical Communication Virtual Review in [place], [place] [address] [place] [phone] 11/18/2023 Clinical Communication Department of Otorhinolaryngology in [place], [place] [address] [place] [phone] Daniel Domínguez M.D. presurgery questions 11/16/2023 2:00 PM INFECTIOUS DISEASE PHYSICIAN Comprehensive Visit Department of Otorhinolaryngology in [place], [place] [address] [place] [phone] Daniel Domínguez M.D. Mass Parotid (Primary Dx); Other Diseases Of Salivary Glands 11/16/2023 Orders Only Preoperative Evaluation Center in [place], [place] [address] [place] [phone] Lai Gallego, CHUCKY, C.N.P., M.S. Preanesthetic Medical Exam (Primary Dx); Mass Parotid 11/15/2023 Clinical Communication Department of Otorhinolaryngology in [place], [place] [address] [place] [phone] Prescheduling, Provider 11/10/2023 [facility] AND [address] [address] Liss Madera M.D. Other Diseases Of Salivary Glands (Primary Dx) from Last 3 Months Family History Medical History Relation Name Comments Other cancer Brother Jarrett Felder Lung cancer Father Napoleon Felder Fibrosis also Leukemia Father's Brother Raz Felder Arthritis Mother Kenzie Felder Coronary artery disease Mother Kenzie Felder 5 bypasses Dementia Mother Kenzie Felder at 93 years Diabetes Mother Kenzie Felder Hyperlipidemia Mother Kenzie Felder Hypertension Mother Kenzie Felder Stroke Mother Kenzie Cadenadon Transient ischemic attack Mother Kenzie Cadena n Relation Name Status Comments Brother Jarrett Felder Father Napoleon Felder Father's Brother Raz Felder Mother Kenzie Emerita Social History Tobacco Use Types Packs/Day Years Used Date Smoking Tobacco: Former Cigarettes Q uit: 09/20/1991 Tobacco Cessation:Counseling Given: Not Answered Alcohol Use Standard Drinks/Week Comments Yes 8 (1 standard drink = 0.6 oz pur e alcohol) [facility] Utilities Answer Date Recorded In the [...] often do you attend chur ch or orthodoxy services? Never 02/25/2021 Do you belong to any clubs o r organizations such as christianity groups, unions, fraternal or athletic groups, or [...] heating? Not hard at all 02/25/2021 [facility] of Occupat ional Health - Occupational Stress [...] your living situation today? I have a [facility] place to live 12/22/2023 Education Answer Date Recorded What is the highest level of school you have completed or the highest degree you have received? Some college, no degree 02/25/2021 Sex and Gender Information Value Date Recorded Sex Assigned at Female 11/15/2023 8:06 PM INFECTIOUS DISEASE PHYSICIAN Gender Identity Female 11/15/2023 8:06 PM INFECTIOUS DISEASE PHYSICIAN Sexual Orientation Straight 11/15/2023 8: 06 PM INFECTIOUS DISEASE PHYSICIAN Last Filed Vital Signs Vital Sign Reading [...] CDT Office Visit Department of Otorhinolaryngology in [place], [place] [address] [place] [phone] Daniel Domínguez M.D. [address] [place] [phone] Health Maintenance Due Date Last Done Comments Bone Density Scan (Osteoporo sis Screen) 1951 CT Colonography 1950 Cologuard 1950 Diabetic Office Visit with F oot Exam 1950 Dilated Eye Exam 1950 Hepatitis C Screening 1950 Urine Albumin 1950 Hepatitis B Vaccines (1 of 3 - Risk 3-dose series) 2011 Mammogram 08/12/2016 08/12/2015 (Perf ormed elsewhere) Thyroid Stimulating Hormone (TSH) test for thyroid function 04/30/2021 04/30/2020, 08/20/2019, 09/01/2018, Additional history exists Depression Screening (Annual PHQ-2) 09/12/2023 Hemoglobin A1C 06/20/2024 12/20/2023 Colonoscopy 06/26/2024 06/26/2019, 12/09/2013 (Performed elsewhere) Colorectal Cancer Surveillance 06/26/2024 Creatinine Level (Kidney Fun ction Test) 12/19/2024 12/20/2023, 12/03/2020, 04/30/2020, Additional history exists Office Visit for Blood Press ure Check / Re-check 12/19/2024 12/20/2023 Potassium Level 12/19/2024 12/20/2023, 04/12, 08/20/2019, Additional history exists Sodium Level 12/19/2024 12/20/2023, 04/12, 08/20/2019, Additional history exists Lipid (Cholesterol) Screening 03/06/2026, 11/25/2020, 05/16/2020, Additional history exists DTaP,Tdap,and Td Vaccines (3 - Td or Tdap) 09/06/2027 09/06/2017, 07/05/2007 Pneumococcal vaccine (65+ years) Completed 07/31/20 18, 07/25/2017 Zoster Vaccines Completed 09/02/2021, 03/2021, 08/24/2012 COVID-19 Vaccine Completed 07/07/2023, , 01/19/2022, Additional history exists Influenza Vaccine Completed 07/07/2023, , 06/03/2021, Additional history exists Fall Risk Screen (Annual) Completed 12/21/2023 Procedures Procedure Name Priority Date/Time Associated Diagnosis [...] Other Diseases Of Salivary Glands Case Notes NURSE TRANSPLANT at 12:23 PAROTIDECTOMY 12/21/2023 5:05 PM CDT Other Diseases Of Salivary Glands Case Notes NURSE TRANSPLANT at 12:23 GLUCOSE POCT, B Routine 12/21/2023 4:02 PM CDT HEMOGLOBIN A1C, B Routine 12/20/2023 8:3 8 AM CDT Diabetes Mellitus Type 2 Without Complication (HCC) BASIC METABOLIC PANEL, S/P Routine 12/20/2023 8:38 AM CDT Preanesthetic Medical Exam Mass Parotid CBC WITHOUT DIFFERENTIAL, B Routine 12/20/2023 8:38 AM CDT Preanesthetic Medical Exam Mass Parotid OUTSIDE CT NEURO Routine 11/07/2023 12:15 PM INFECTIOUS DISEASE PHYSICIAN EXTI LIPID PANEL W REFLEX MEASURED LDL [...] Unknown Provider LAB POCT ORDERABLES- MANUAL POC [facility] [address] [place] [address], [facility] PCLX [facility] POC [address] [place] [address] * Surgical Pathology, Frozen Lab (12/21/2023 7:07 PM CDT) Pathologist [facility] 12/23/2023 8:00 AM CDT STMA Report electronically [...] and periglandular lymph nodes are not identified. [employer] Laborer tissue submitted for frozen and permanent sections. ??Grossed by Matilde Gonzalze M.D.-Pathology Fellow. 12/23/2023 8:00 AM CDT STMA [...] Daniel Domínguez M.D. LAB SURG PATH ORDERA [facility] [address] [place] [address], [facility] 200 [facility] [address] [place] [address] * LDA ANE ENDOTRACHEAL AIRWAY (12/21/2023 5:40 [...] ETT location: nasal VL device: glide scope Floyd scope blade size: 3 Tube size: 6 [...] CBC without Differential (12/20/2023 8:38 AM CDT) Pathologist [facility] Hemoglobin 13.1 11.6 - 15.0 g/dL 12/20/2023 [...] 8:38 AM CDT 12/20/2023 9:04 AM CDT Lai Gallego APRN C.N.P., M.S. LAB BLO OD ADD-ON [facility] [address] [place] [address], [facility] [address] [place] [address] * (ABNORMAL) Hemoglobin A1c (12/20/2023 8:38 AM CDT) Hemoglobin A1c, B 6.4(H) 4.0 - 5.6 % 12/20/2023 10:30 AM CDT DTL Comment: Hemoglobin A1c values of 5.7-6.4 percent indicate an increased risk for developing diabetes mellitus. In diabetic patients, HbA1c goals should be discussed with healthcare provider. Blood (Blood, Venous) 12/20/2023 8:38 AM CDT 12/20/2023 9:04 AM CDT Lizabeth Gillette APRN C.N.P., M.S.N. [place] [address], [facility] [place] [address] * Basic Metabolic Panel (12/20/2023 8:38 AM CDT) Potassium, S 3.9 3.6 - 5.2 mmol/L [...] 8:38 AM CDT 12/20/2023 9:25 AM CDT Omayra Ayoub APRN.Kailash., M.S. LAB BLO OD ADD-ON Performing Organization Address City/[facility] Co de Phone Number [facility] [address] [place] [address], [facility] DTL [facility] [address] [place] [address] * CT SOFT TISSUE NECK W CON-Outside CT Neuro (11/07/2023 12:15 PM INFECTIOUS DISEASE PHYSICIAN) Narrative [facility] - 11/10/2023 10:55 AM INFECTIOUS DISEASE PHYSICIAN This order has been created and auto-finalized to support the import of outside images. If available, original interpretation can be found on the Media Tab in Chart Review, in Document Viewer, or as an image in QREADS. If a re-interpretation or overread is required please follow defined workflow. ?? Provider Not In System IMG CT PROCEDURES Performing Organization Address City/[facility] Co de Phone Number [facility] NA from Last 3 Months or Most Recently Relevant to Health Maintenance Advance Directives For more information, please contact: [phone] * Full Code (Latest Code Status on File) Date Activated Date Inactivated Comments 12/21/2023 10:01 PM 12/22/2023 3:02 PM Question Answer Comments Full Code: Not Discussed Due to: Patient not available Care Teams Soot Blower Relationship Specialty Start Date End Date Elsewhere, Pcp PCP - General Internal Medicine 12/19/23
--- OUTSIDE RECORDS SUMMARY | 2023-12-30 07:12 | XMS_ITS | Encounter Summary ---
Author Name Unknown Organization [facility] Address [address] [place] [address] Care Team Providers Care Cryptoanalysis Teacher Name Role Phone Unavailable Primary Care Provider Unavailabl e Reason for Referral * Outpatient (Routine) - Closed Specialty Diagnoses / Procedures Referred By Rosina arana Referred To Contact Anesthesiology Diagnoses Other Diseases Of Salivary Glands Daniel Domínguez M.D. [address] [place] [address] [facility] Referral ID Status Reason Start Date Expiration Date Visits Re quested Visits Authorized [id number] Closed 11/16/2023 05/17/2025 1 1 OR DIGITAL DESIGNER Reason for Visit * Outpatient (Routine) - Closed Specialty Diagnoses / Procedures Referred By Rosina arana Referred To Contact Otorhinolaryngology Diagnoses Other Diseases Of Salivary Glands Liss Madera M.D. [address] [place] [address] [facility] Referral ID Status Reason Start Date Expiration Date Visits Re quested Visits Authorized [id number] Closed 11/10/2023 05/11/2025 1 1 Encounter Details Date Type Department Care Team (Latest Contact Info) Description 11/16/2023 2:00 PM SENIOR DIGITAL DESIGNER Comprehensive Visit Department of Otorhinolaryngology in [place], [place] [address] [place] [phone] Daniel Domínguez M.D. [address] [place] [address] Mass Parotid (Primary Dx); Other Diseases Of Salivary Glands Social History Tobacco Use Types Packs/Day Years Used Date Smoking Tobacco: Former Cigarettes Q uit: 1996 [facility] Utilities Answer Date Recorded In the past 12 months has th e electric, gas, oil, or water company threatened to shut off services in your home? No 11/15/2023 Social Connection and Isolat ion Panel [NHANES] Answer Date Recorded In a typical week, how many times do you talk on the phone with family, friends, or neighbors? Once a week 02/25/2021 How often do you get togethe r with friends or relatives? Once a week 02/25/2021 How often do you attend chur ch or alevism services? Never 02/25/2021 Do you belong to any clubs o r organizations such as restorationist groups, unions, fraternal or athletic groups, or [...] and heating? Not hard at all 02/25/2021 [facility] [place] of Occupat ional Health - Occupational Stress [...] the money to buy more. Never true 11/15/19 24 Within the past 12 months, t he food you bought just didn't last and you didn't have money to get more. Never true 11/15/2023 PRAPARE - Transportation Answer Date Re corded In the past 12 months, has l ack of transportation kept you from medical appointments or from getting medications? No 01/2024 In the past 12 months, has l ack of transportation kept you from meetings, work, or from getting things needed for daily living? No 11/15/2023 Nutrition Answer Date Recorded Nutrition: EVOO Fat [...] your living situation today? I have a [facility] place to live 11/15/2023 Education Answer Date Recorded What is the highest level of school you have completed or the highest degree you have received? Some college, no degree 02/25/2021 Sex and Gender Information Value Date Recorded Sex Assigned at Female 11/15/2023 8:06 PM SENIOR DIGITAL DESIGNER Gender Identity Female 11/15/2023 8:06 PM SENIOR DIGITAL DESIGNER Sexual Orientation Straight 11/15/2023 8: 06 PM SENIOR DIGITAL DESIGNER documented as of this encounter Consult Notes * Daniel Domínguez M.D. - 11/16/2023 2:00 PM CST I saw and evaluated the patient, participating in the hughes portions of the service. I reviewed the resident/fellow???s note. I agree with the resident/fellow???s findings and plan. #1. Parapharynx mass. Discussed likely pathology. Discussed potential for biopsy vs cervical parotid approach. She and I prefer the latter. Surgery December 20. Pre-op clearance ordered. Daniel Domínguez M.D. * Michell Ann M.D. - 11/16/2023 2:00 PM CST REF PROVIDER: Liss Madera M.D. [address] [place] [phone] SUBJECTIVE CHIEF COMPLAINT/PURPOSE OF VISIT: Incidentally discovered left parapharynx mass HISTORY OF PRESENT ILLNESS: Ms. Emerita Pastor is a 72 y.o. year old female who presents for evaluation of an incidentally discovered left parapharynx mass. Presentation: CT scan ordered by PCP for right jaw pain/swelling (has history of what she describesas TMJ pain and right jaw clicking) which discovered no right jaw pathology but instead an incidentally noted left parapharynx mass. Asymptomatic - denies throat pain, globus, dyspnea, dysphagia, left cheek pain, facial nerve weakness or ability to palpate the mass. Workup: CT Treatment: none 4. Risk Factors - Denies prior head or neck cancer. - Denies a history of radiation treatment. - Nonsmoker - Personal history of skin cancer: none - Denies immunosuppresion 5. 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 Well circumscribed, heterogeneous with both solid and cystic component. CURRENT MEDICATIONS: Reviewed and updated in the EMR. ALLERGIES: No Known Allergies. PAST MEDICAL HISTORY: No past medical history on file. SURGICAL HISTORY: No past surgical history on file. SOCIAL HISTORY: Social History Socioeconomic History Marital status: Spouse name: Not on file Number of children: Not on file Years of education: Not on file Highest education level: Some college, no degree Occupational History Not on file Tobacco Use Smoking status: Former Types: Cigarettes Quit date: 1996 Years since quittin.1 Smokeless tobacco: Not on file Substance and Sexual Activity Alcohol use: Not on file Drug use: Not on file Sexual activity: Not on file Other Topics Concern Not on file Social History Narrative Not on file Social Determinants of Health Food Insecurity: No Food Insecurity (11/15/2023) Hunger Vital Sign Worried About Running Out of Food in the Last Year: Never true Ran Out of Food in the Last Year: Never true Transportation Needs: No Transportation Needs (11/15/2023) PRAPARE - Transportation Lack of Transportation (Medical): No Lack of Transportation (Non-Medical): No Physical Activity: Sufficiently Active (11/15/2023) Exercise Vital Sign Days of Exercise per Week: 4 days Minutes of Exercise per Session: 60 min Intimate Partner Violence: Not on file Housing Stability: Low Risk (11/15/2023) Housing Stability Housing: Living Situation: I have a steady place to live 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 OBJECTIVE PHYSICAL EXAM: General: 72 y.o. year old female, in no acute distress. Ambulates on and off the exam table withoutdifficulty. Eyes: EOMI. Neuro: I/ bilaterally, sensation intact to light touch on the bilaterally. Oral Cavity: no masses or ulcers. Dentition is intact. Tongue protrusion is normal. OP: No masses or ulcers. Calhoun tonsilsare present and are 1+. Parotid/Neck: No masses appreciated. Skin: No rashes or lesions. ASSESSMENT / PLAN DIAGNOSIS/PLAN: #1 Other Diseases Of Salivary Glands #2 Mass Parotid It was a pleasure to meet with Mrs. 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 We discussed the likelihood that this is a benign mass based on the appearance of CT scan but are unable to rule out malignancy based on the scan. We talked about our recommendation for surgical removal of this for definitive diagnosis. Wewould recommend a combination transcervical and trans parotid approach to the para pharynx to remove this tumor. We discussed nasotracheal intubation, imf screws to advance her mandible during surgery, deep lobe parotid tumor removal with partial parotidectomy and evaluation by frozen section pathology. We discussed the potential for proceeding with a total parotidectomy, neck dissection, and abdominal fat graft in the case of a malignancy. We will plan for her to have an outpatient surgery with drain placement and removal the following day. If she has a total parotidectomy with neck dissection we would consider keeping her overnight though. We talked about the risks of surgery and postoperative expectations which include but are not limited to bleeding, hematoma, infection, scar, pain typically controlled with Tylenol and ibuprofen withpotential need for oxycodone in the short term, first bite syndrome, maru syndrome, pain and small l acerations intraorally from the IMF screws, numbness which could be temporary or permanent particularly of the ear lobule, temporary facial nerve weakness with the low chance of having permanent facial weakness, and a possibility that she will have to have adjuvant therapy if this is in fact a malignancy. Plan Proceed to surgery 12/21/23, plan for outpatient possibly overnight stay pending extent of surgery EMERITA We asked her to hold her baby aspirin for five days prior to surgery PATIENT EDUCATION Ready to learn, no apparent learning barriers were identified; learning preferences include listening. Explained diagnosis and treatment plan; patient expressed understanding of the content. Associated attestation - Daniel Domínguez M.D. - 11/28/2023 8:39 AM CDT I saw and evaluated the patient, participating in the hughes portions of the service. I reviewed the resident/fellow???s note. I agree with the resident/fellow???s findings and plan. documented in this encounter Plan of Treatment Upcoming Encounters Date Type Department Care Team (Late st Contact Info) Description 01/31/2024 8:30 AM CDT Office Visit Department of Otorhinolaryngology in [place], [place] [address] [place] [address] Daniel Domínguez M.D. [address] [place] [address] Scheduled Referrals Name Type Priority Associated Diagnoses Order Schedule Preoperative Evaluation EMERITA consult (clinic) Outpatient Referral Routine Other Diseases Of Salivary Glands Expected: 11/16/2023 (Approximate), Expires: 02/15/2025 documented as of this encounter Visit Diagnoses Diagnosis 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 documented in this encounter
--- OUTSIDE RECORDS SUMMARY | 2023-12-30 07:12 | XMS_ITS | Encounter Summary ---
Author Name Unknown Organization [facility] Address [address] [place] [address] Care Team Providers Care Hand Sander Name Role Phone Elsewhere, Pcp Primary Care Provider Unavailabl e Reason for Visit * Reason Onset Date Comments presurgery questions 11/18/2023 Encounter Details Date Type Department Care Team (Latest Contact Info) Description 11/18/2023 Clinical Communication Department of Otorhinolaryngology in [place], [place] [address] [place] [address] Daniel Domínguez M.D. [address] [place] [phone] presurgery questions Social History Tobacco Use Types Packs/Day Years Used Date Smoking Tobacco: Former Cigarettes Q uit: 1996 [facility] Utilities Answer Date Recorded In the past 12 months has [facility] electric, gas, oil, or water company threatened [...] often do you attend chur ch or yazidi services? Never 02/25/2021 Do you belong to any clubs o r organizations such as methodist groups, unions, fraternal or athletic groups, or [...] and heating? Not hard at all 02/25/2021 [facility] Occupat ional Health - Occupational [...] your living situation today? I have a [place] place to live 11/15/2023 Education Answer Date Recorded What is the highest level of school you have completed or the highest degree you have received? Some college, no degree 02/25/2021 Sex and Gender Information Value Date Recorded Sex Assigned at Female 11/15/2023 8:06 PM VENDOR MANAGEMENT CONSULTANT Gender Identity Female 11/15/2023 8:06 PM VENDOR MANAGEMENT CONSULTANT Sexual Orientation Straight 11/15/2023 8: 06 PM VENDOR MANAGEMENT CONSULTANT documented as of this encounter Miscellaneous Notes * Telephone Encounter - Sridevi Almonte - 11/23/2023 3:06 PM CDT Patient called again this afternoon about her allergy pills. I passed on the response from Dr. Ann. All of her questions were answered. No further follow up needed. Sridevi * Telephone Encounter - Hilda Weathers - 11/18/2023 12:19 PM CST Zaida calls today. She is wondering if she can take her allergy medicine up to surgery. She is alsowondering if she should bring her CPAP to the hospital. She has a travel and one she uses at home. Please reach out to her at [phone] Surg: December 20 parotidectomy OR MANAGEMENT CONSULTANT documented in this encounter Plan of Treatment Upcoming Encounters Date Type Department Care Team (Late st Contact Info) Description 01/31/2024 8:30 AM CDT Office Visit Department of Otorhinolaryngology in [place], [place] [address] [place] [phone] Daniel Domínguez M.D. [address] [place] [phone] documented as of this encounter Visit Diagnoses Not on filedocumented in this encounter Care Teams Hand Sander Relationship Specialty Start Date End Date Elsewhere, Pcp PCP - General Internal Medicine 12/19/23 documented as of this encounter
--- OUTSIDE RECORDS SUMMARY | 2023-12-30 07:12 | XMS_ITS | Encounter Summary ---
Author Name Unknown Organization [facility] Address [address] [place] [address] Care Team Providers Care Edger Hand Name Role Phone Unavailable Primary Care Provider Unavailabl e Reason for Referral * Outpatient (Routine) - Closed Specialty Diagnoses / Procedures Referred By Rosina araan Referred To Contact Otorhinolaryngology Diagnoses Other Diseases Of Salivary Glands Liss Madera M.D. [address] [place] [phone] [facility] Referral ID Status Reason Start Date Expiration Date Visits Re quested Visits Authorized [id number] Closed 11/10/2023 05/11/2025 1 1 [employer] FO[employer] SERVICE TEAM MEMBER Encounter Details Date Type Department Care Team (Late st Contact Info) Description 11/10/2023 [facility] [address] [place] [address] Liss Madera M.D. [address] [place] [phone] Other Diseases Of Salivary Glands (Primary Dx) Social History Tobacco Use Types Packs/Day Years Used Date Smoking Tobacco: Former Cigarettes Q uit: 1996 [facility] Utilities Answer Date Recorded In [...] any clubs o r organizations such as moravian groups, unions, fraternal or athletic groups, or [...] and heating? Not hard at all 02/25/2021 [facility] of Occupat ional Health - Occupational [...] your living situation today? I have a [facility] place to live 11/15/2023 Education Answer Date Recorded What is the highest level of school you have completed or the highest degree you have received? Some college, no degree 02/25/2021 Sex and Gender Information Value Date Recorded Sex Assigned at Female 11/15/2023 8:06 PM PREPARED FOODS SERVICE TEAM MEMBER Gender Identity Female 11/15/2023 8:06 PM PREPARED FOODS SERVICE TEAM MEMBER Sexual Orientation Straight 11/15/2023 8: 06 PM PREPARED FOODS SERVICE TEAM MEMBER documented as of this encounter Plan of Treatment Upcoming Encounters Date Type Department Care Team (Late st Contact Info) Description 01/31/2024 8:30 AM CDT Office Visit Department of Otorhinolaryngology in [place], [place] [address] [place] [phone] Daniel Domínguez M.D. [address] [place] [address] Scheduled Referrals Name Type Priority Associated Diagnoses Order Schedule Otolaryngology Referral Outpatient Referral Routine Other Diseases Of Salivary Glands Expected: 11/10/2023 (Approximate), Expires: 02/07/2025 documented as of this encounter Visit Diagnoses Diagnosis Other Diseases Of Salivary Glands- Primary documented in this encounter
--- OUTSIDE RECORDS SUMMARY | 2023-12-30 07:12 | XMS_ITS | Encounter Summary ---
Author Name Unknown Organization [facility] Address [address] [place] [address] Care Team Providers Care Reinforcing Iron Worker Helper Name Role Phone Elsewhere, Pcp Primary Care Provider Unavailabl e Reason for Visit * Outpatient (Routine) - Closed Specialty Diagnoses / Procedures Referred By Rosina t Referred To Contact Anesthesiology Diagnoses Other Diseases Of Salivary Glands Daniel Domínguez M.D. [address] [place] [phone] [facility] Referral ID Status Reason Start Date Expiration Date Visits Re quested Visits Authorized [id number] Closed 11/16/2023 05/17/2025 1 1 Encounter Details Date Type Department Care Team (Latest Contact Info) Description 12/20/2023 7:30 AM CDT Comprehensive Visit Preoperative Evaluation Center in [place], [place] [address] [place] [phone] Daniel Domínguez M.D. [address] [place] [phone] Lizabeth Gillette, CHUCKY, C.N.P., M.S.N. [address] [place] [phone] Preanesthetic Medical Exam (Primary Dx); Other Diseases Of Salivary Glands; Anesthesia Complication Personal History; Apnea Sleep Obstructive; Temporomandibular Joint Disorder; Hypertension Essential Primary; Diabetes Mellitus Type 2 Without Complication (HCC); Hyperlipidemia; Hypothyroidism; Obesity Body Mass Index 30-39.9 Adult Social History Tobacco Use Types Packs/Day Years Used Date Smoking Tobacco: Former Cigarettes Q uit: 09/20/1991 Tobacco Cessation:Counseling Given: Not Answered Alcohol Use Standard Drinks/Week Comments Yes 8 (1 standard drink = 0.6 oz pur e alcohol) [facility] Utilities Answer Date Recorded In the [...] often do you attend chur ch or latter day services? Never 02/25/2021 Do you belong to any clubs o r organizations such as sabianism groups, unions, fraternal or athletic groups, or [...] and heating? Not hard at all 02/25/2021 [facility] [place] of Occupat ional Health - Occupational Stress [...] your living situation today? I have a [facility] place to live 11/15/2023 Education Answer Date Recorded What is the highest level of school you have completed or the highest degree you have received? Some college, no degree 02/25/2021 Sex and Gender Information Value Date Recorded Sex Assigned at Female 11/15/2023 8:06 PM TRUCK RENTAL CLERK Gender Identity Female 11/15/2023 8:06 PM TRUCK RENTAL CLERK Sexual Orientation Straight 11/15/2023 8: 06 PM TRUCK RENTAL CLERK documented as of this encounter Last Filed Vital Signs Vital Sign Reading Time Taken Comments Blood Pressure 135/78 12/20/2023 7:21 AM CDT Pulse 67 12/20/2023 7:21 AM CDT Temperature 36.6 ??C (97.9 ??F) 12/20/2023 7:19 AM CD T Respiratory Rate - - Oxygen Saturation 98% 12/20/2023 7:21 AM CDT Inhaled Oxygen Concentration - - Weight 91.2 kg (201 lb 1 oz) 12/20/2023 7:19 AM CDT Height 168 cm (5' 6.14) 12/20/2023 7:19 AM CDT Body Mass Index 32.31 12/20/2023 7:19 AM CDT documented in this encounter H&P Notes * Lizabeth Gillette APRN, C.N.P., M.S.N. - 12/20/2023 7:30 AM CDT REASON [...] from 12/20/2023 in Preoperative Evaluation Center in [place], [place] DASI Total Score 31.45 Estimated V02 [...] Get Ready for Your Surgery or Procedure: [facility] [id number] rev 0124. Written and verbal instructions [...] outweighsbenefits of chemoprophylaxis. documented in this encounter Plan of Treatment Upcoming Encounters Date Type Department Care Team (Late st Contact Info) Description 01/31/2024 8:30 AM CDT Office Visit Department of Otorhinolaryngology in [place], [place] [address] [place] [phone] Daniel Domínguez M.D. [address] [place] [phone] documented as of this encounter Results * (ABNORMAL) Hemoglobin A1c (12/20/2023 8:38 AM [...] APRN, C.N.P., M.S.N. LAB BLO OD ADD-ON [facility] fg microtec [facility] [address] [place] [address], [facility] DTL [facility] [address] [place] [address] documented in this encounter Visit Diagnoses Diagnosis Preanesthetic Medical Exam- Primary Other Diseases Of Salivary Glands Anesthesia Complication Personal History Apnea Sleep Obstructive Temporomandibular Joint Disorder Hypertension Essential Primary Diabetes Mellitus Type 2 Without Complication (HCC) Hyperlipidemia Hypothyroidism Obesity Body Mass Index 30-39.9 Adult documented in this encounter Care Teams Reinforcing Iron Worker Helper Relationship Specialty Start Date End Date Elsewhere, Pcp PCP - General Internal Medicine 12/19/23 documented as of this encounter
--- OUTSIDE RECORDS SUMMARY | 2023-12-30 07:12 | XMS_ITS | Encounter Summary ---
Author Name Unknown Organization [facility] Address [address] [place] [address] Care Team Providers Care Mathematics Education Professor Name Role Phone Unavailable Primary Care Provider Unavailabl e Encounter Details Date Type Department Care Team (Late st Contact Info) Description 11/16/2023 Orders Only Preoperative Evaluation Center in [place], [place] [address] [place] [phone] Lai Gallego, CHUCKY, C.N.P., M.S. [address] [place] [phone] Preanesthetic Medical Exam (Primary Dx); Mass Parotid Social History Tobacco Use Types Packs/Day Years Used Date Smoking Tobacco: Former Cigarettes Q uit: 1996 [facility] Utilities Answer Date Recorded In the past 12 months has [employer], gas, oil, or water company threatened to [...] often do you attend chur ch or quaker services? Never 02/25/2021 Do you belong to any clubs o r organizations such as yazidi groups, unions, fraternal or athletic groups, or [...] heating? Not hard at all 02/25/2021 [facility] of Occupat ional Health - Occupational Stress [...] Sex Assigned at Female 11/15/2023 8:06 PM CLAY TEMPERER Gender Identity Female 11/15/2023 8:06 PM CLAY TEMPERER Sexual Orientation Straight 11/15/2023 8: 06 PM CLAY TEMPERER documented as of this encounter Plan of Treatment Upcoming Encounters Date Type Department Care Team (Late st Contact Info) Description 01/31/2024 8:30 AM CDT Office Visit Department of Otorhinolaryngology in [place], [place] [address] [place] [address] Daniel Domínguez M.D. [address] [place] [address] documented as of this encounter Results * Basic Metabolic Panel (12/20/2023 8:38 AM [...] CDT 12/20/2023 9:25 AM CDT Lai Gallego APRN C.N.P., M.S. LAB BLO OD ADD-ON [facility] [address] [place] [address], [facility] [address] [address] * (ABNORMAL) CBC without Differential (12/20/2023 8:38 AM CDT) Pathologist [facility] Hemoglobin 13.1 11.6 - 15.0 g/dL 12/20/2023 [...] CDT 12/20/2023 9:04 AM CDT Lai Gallego APRN, C.N.P., M.S. LAB BLO OD ADD-ON [facility] [address] [place] [address], [facility] [address] [place] [address] documented in this encounter Visit Diagnoses Diagnosis Preanesthetic Medical Exam- Primary Mass Parotid documented in this encounter
--- OUTSIDE RECORDS SUMMARY | 2023-12-30 07:12 | XMS_ITS | Encounter Summary ---
Author Name Unknown Organization [facility] Address [address] [place] [address] Care Team Providers Care Lap Hand Tool Name Role Phone Unavailable Primary Care Provider Unavailabl e Encounter Details Date Type Department Care Team (Latest Contact Info) Description 12/14/2023 1:15 PM CDT Clinical Communication Virtual Review in [place], [place] [address] [place] [address] Social History Tobacco Use Types Packs/Day Years Used Date Smoking Tobacco: Former Cigarettes Q uit: 09/20/1991 Alcohol Use Standard Drinks/Week Comments Yes 8 (1 standard drink = 0.6 oz pur e alcohol) [facility] Utilities Answer Date Recorded In the [...] often do you attend chur ch or zoroastrian services? Never 02/25/2021 Do you belong to any clubs o r organizations such as gnosticist groups, unions, fraternal or athletic groups, or [...] and heating? Not hard at all 02/25/2021 [facility] [place] of Occupat ional Health - Occupational Stress [...] Answer Date Recorded Dental: Regular Dentist Yes 01/11/20 23 Employment Answer Date Recorded Employment status Retired [...] Sex Assigned at Female 11/15/2023 8:06 PM HUMID SYSTEM OPERATOR Gender Identity Female 11/15/2023 8:06 PM HUMID SYSTEM OPERATOR Sexual Orientation Straight 11/15/2023 8: 06 PM HUMID SYSTEM OPERATOR documented as of this encounter Plan of Treatment Upcoming Encounters Date Type Department Care Team (Late st Contact Info) Description 01/31/2024 8:30 AM CDT Office Visit Department of Otorhinolaryngology in [place], [place] [address] [place] [address] Daniel Domínguez M.D. [address] [place] [phone] documented as of this encounter Visit Diagnoses Not on filedocumented in this encounter
--- OUTSIDE RECORDS SUMMARY | 2023-12-30 07:12 | XMS_ITS | Encounter Summary ---
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 [address] [place] [phone] Partial PAROTIDECTOMY. Social History Tobacco Use Types Packs/Day Years Used Date Smoking Tobacco: Former Cigarettes Q uit: 09/20/1991 Tobacco Cessation:Counseling Given: Not Answered Alcohol Use Standard Drinks/Week Comments Yes 8 (1 standard drink = 0.6 oz pur e alcohol) [facility] Utilities Answer Date Recorded In the past [...] often do you attend chur ch or evangelical services? Never 02/25/2021 Do you belong to any clubs o r organizations such as shinto groups, unions, fraternal or athletic groups, or [...] and heating? Not hard at all 02/25/2021 [facility] - Occupational [...] your living situation today? I have a [facility] place to live 12/22/2023 Education Answer Date Recorded What is the highest level of school you have completed or the highest degree you have received? Some college, no degree 02/25/2021 Sex and Gender Information Value Date Recorded Sex Assigned at Female 11/15/2023 8:06 PM MONORAIL HOOKER Gender Identity Female 11/15/2023 8:06 PM MONORAIL HOOKER Sexual Orientation Straight 11/15/2023 8: 06 PM MONORAIL HOOKER documented as of this encounter Last Filed Vital Signs Vital Sign Reading Time Taken Comments Blood Pressure 148/67 12/21/2023 12:29 PM CDT Pulse 62 12/21/2023 12:29 PM CDT Temperature 36.6 ??C (97.9 ??F) 12/21/2023 12:29 PM C DT Respiratory Rate - - Oxygen Saturation 98% 12/21/2023 12:29 PM CDT Inhaled Oxygen Concentration - - Weight 91 kg (200 lb 9.9 oz) 12/21/2023 12:29 PM CDT Height 165.1 cm (5' 5) 12/21/2023 12:29 PM CDT Body Mass Index 32.8 12/21/2023 12:29 PM CDT documented in this encounter Discharge Summaries * Michell Ann M.D. - 12/22/2023 8:00 AM CDT DISCHARGE SUMMARY BRIEF OVERVIEW Hospital: [facility] Discharge Provider: Daniel Domínguez M.D. Primary Team: [facility] - Sang Primary Care Providers: Elsewhere, [...] M.D.Staricha, Kelly L, M.D.Peraza, Lazaro R, M.D. [facility] ROMB OR DISCHARGE DISPOSITION Home or [...] PM CDT You were discharged from the [facility] ENT - [facility]. Please identify this service name if you callwith questions after hospitalization. * Attachments The following attachments cannot be sent through Care Everywhere. * Oxycodone, Rapid Release (By mouth) ([place]) * Scopolamine (Absorbed through the skin) ([place]) * Acetaminophen (By mouth) ([place]) * Carboxymethylcellulose (Into the eye) ([place]) * Ibuprofen (By mouth) ([place]) * Laxative, Stimulant (By mouth) ([place]) documented in this encounter Medications at Time [...] distress. INTAKE/OUTPUT: Output by Drain (mL) 12/20/23 0701 - 12/20/23 1900 12/20/23 190 - 12/21/23 0700 12/21/23 0701 - 12/21/23 1900 12/21/23 190 - 12/22/23 0700 12/22/23 0701 - 12/22/23 0801 Closed/Suction Drain 1 Inferior;Left;Dorsal Head Bulb 10 Fr. 10 I/O 12/19 0701 12/20 0700 12/20 0701 12/21 0700 12/21 0701 12/22 0700 P.O. [...] changes to the H&P. Nelsy Nowak APRN, C.N.P., M.S.N. Source Note - Lizabeth Gillette APRN, C.NNavjot, M.S.N. - 12/20/2023 7:30 AM CDT REASON [...] from 12/20/2023 in Preoperative Evaluation Center in [place], [place] DASI Total Score 31.45 Estimated V02 [...] Get Ready for Your Surgery or Procedure: [facility] 3596-07 rev 0124. Written and verbal instructions [...] Post-op Diagnosis Other Diseases Of Salivary Glands Reliability Manager A environmental engineering assistant actively participated and was necessary for [...] Ann M.D. - 12/20/2023 11:34 PM CDT Zaiad Pastor is a 73 y.o. female who [...] probe, neck sutton; KLS IMF screws, screw substitute bus driver, 16 and 18 G wire - Closure: 4-0 mono, dermabond - Other concerns: removal of IMF screws at end of nupur - follow-up: 6 week video followup Michell Ann M.D. Resident Physician ENT [facility], [phone] [facility] Dept. of Otorhinolaryngology-Head & Neck Surgery documented in this encounter Plan of Treatment Upcoming Encounters Date Type Department Care Team (Late st Contact Info) Description 01/31/2024 8:30 AM CDT Office Visit Department of Otorhinolaryngology in [place], [place] [address] [place] [address] Daniel Domínguez M.D. [address] [place] [address] Scheduled Referrals Name Type Priority Associated Diagnoses [...] Other Diseases Of Salivary Glands Case Notes SECRET CODE EXPERT at 12:23 PAROTIDECTOMY 12/21/2023 5:05 PM CDT Other Diseases Of Salivary Glands Case Notes SECRET CODE EXPERT at 12:23 GLUCOSE POCT, B Routine 12/21/2023 4:02 PM CDT documented in this encounter Results * Glucose, POCT (12/21/2023 8:05 PM CDT) Glucose, POCT, B 133 70 - 140 mg/dL 12/21/2023 9:17 PM CDT PCLX Site Capillary 12/21/2023 9:17 PM CDT PCLX Blood 12/21/2023 8:05 PM CDT 12/21/2023 9:17 PM CDT Unknown Provider LAB POCT ORDERABLES- MANUAL POC [facility] [address] [place] [address], [facility] PCLX [facility] POC [address] [place] [address] * Surgical Pathology, Frozen Lab (12/21/2023 7:07 PM CDT) Pathologist Jignesh 12/23/2023 8:00 AM CDT STMA Report electronically [...] and periglandular lymph nodes are not identified. Coin Box Inspector tissue submitted for frozen and permanent sections. [...] Domínguez M.D. LAB SURG PATH ORDERA BLES Performing Organization Address [facility] Co de Phone Number [facility] [address] [place] [address], [facility] STMA [address] [facility] [address] [place] [address] * Glucose, POCT (12/21/2023 4:02 PM CDT) Glucose, POCT, B 109 70 - 140 mg/dL 12/21/2023 4:05 PM CDT PCLX Site Capillary 12/21/2023 4:05 PM CDT PCLX Blood 12/21/2023 4:02 PM CDT 12/21/2023 4:05 PM CDT Unknown Provider LAB POCT ORDERABLES- MANUAL Performing Organization Address [facility] Co de Phone Number POC [facility] [address] [place] [address], [facility] PCLX [facility] POC [address] [place] [address] documented in this encounter Visit Diagnoses Diagnosis 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 Hyperlipidemia Hypothyroidism Hypertension Essential Primary Other Diseases Of Salivary Glands documented in this encounter Admitting Diagnoses Diagnosis [...] Given 12/22/2023 8:02 AM CDT 10 mg balanced salt solution ophthalmic irrigation (BSS) As needed, Starting on Tue12/21/23 at 1946, Intra-Op Given 12/21/2023 7:46 PM CDT 30 mL Edward ateral BUPivacaine HCl 0.5 % (5 mg/mL) injection (MARCAINE) As needed, Starting on Tue12/21/23 at 1758, Intra-Op Given 12/21/2023 5:58 PM CDT 10 mL Oth er fentaNYL injection 25 mcg (SUBLIMAZE) 25 mcg, intravenous, Every 2 min PRN, For pain 4 or greater (maximum 100 mcg). If max dose of Fentanyl is reached and if pain is greater than 4, discontinue Fentanyl: give Hydromorphone, Starting on Tue12/21/23 at 2002, PACU (only) Given 12/21/2023 8:56 PM CDT 25 mcg Given 12/21/2023 8:43 PM CDT 25 mcg Given 12/21/2023 8:23 PM CDT 25 mcg heparin (porcine) injection 5,000 Units 5,000 Units, subcutaneous, Every 8 hours scheduled, First dose on Tue12/22/23 at 0400 Given 12/22/2023 3:05 AM CDT 5,000 Units Right Upper Arm (Back) hydroxypropyl methylcellulose 2.5 % ophthalmic demulcent solution (GONAK) As needed, Starting on Tue12/21/23 at 1906, Intra-Op Given 12/21/2023 7:06 PM CDT 2 drops Bilateral ibuprofen tablet 600 mg (MOTRIN) 600 mg, [...] Given 12/22/2023 6:36 AM CDT 125 mcg lidocaine-EPINEPHrine 1 %-1:100,000 injection (XYLOCAINE W/EPI) As needed, Starting on Tue12/21/23 at 1758, Intra-Op Given 12/21/2023 5:58 PM CDT 10 mL Other lisinopril-hydroCHLOROt hiazide 10-12.5 mg per tablet 1 [...] Given 12/22/2023 8:02 AM CDT 5 mg oxymetazoline 0.05 % nasal spray (AFRIN) As needed, Starting on Tue12/21/23 at 1733, Intra-Op Given 12/21/2023 5:33 PM CDT 2 sprays Bilateral Nares scopolamine base 1 mg over 3 days [...] (Given - Provid er: Arelis Escudero R.N., SHAJIN)0801 (Given - Provider: Alyse Shah, C.S.T.) atorvastatin [...] Prophylaxis, surgical 1756 (Given - Provider: Lanette Lee APRN, BRIDGE EXPERT) heparin (porcine) injection 5,000 Units 5,000 Units, subcutaneous, Every 8 hours scheduled, First dose on Tue12/22/23 at 0400 0305 (Given - Provid er: Arelis Escudero R.N., ARMINDA) levothyroxine tablet 125 mcg (SYNTHROID, LEVOTHROID) 125 mcg, oral, Daily before breakfast, First dose on Tue12/22/23 at 0700 0636 (Given - Provid er: Arelis Escudero R.N., ARMINDA) lisinopril-hydroCHLOROthiaz myra 10-12.5 mg per tablet 1 tablet (PRINZIDE,ZESTORETIC) 1 tablet, oral, Every evening, First dose (after last modification) on Tue12/21/23 at 2245, Hold for SBP <120 2323 (Given - Provider: Arelis Escudero R.N., CCRN) scopolamine base 1 mg over 3 days 1 patch (TRANSDERM SCOP) 1 patch, transdermal, Administer over 72 Hours, Every 72 hours, First dose on Tue12/21/23 at 2044, Place behind right ear Contains 1.5 mg [...] needed, Starting on Tue12/21/23 at 1946, Intra-Op 194 (Given - Provider: Murray Hunter M.D.) BUPivacaine HCl 0.5 % (5 mg/mL) injection (MARCAINE) (CANCELED) As needed, Starting on Tue12/21/23 at 175, Intra-Op 1757 (Given - Provider: Murray Hunter M.D. - Comment: 20mL 1% Lidocaine with epinepherine 1:100,000 mixed with 30mL 0.5% Bupivicaine; 10mL of the 50mL used at 1757 into left face) carboxymethylcellulose 0.5 % ophthalmic [...] Fentanyl: give Hydromorphone, Starting on Tue12/21/23 at 2002, PACU (only) 2006 (Given - Provider: Blaine Beltrán RDesiree)2022 (Given - Provider: Blaine Beltrán R.N.)2042 (Given - Provider: Amelie SeguraN.)2055 (Given - Provider: Blaine Beltrán R.N.) haloperidol [...] milk if GI disturbances occur with use. 223 (Given - Provider: Arelis Escudero RDesiree, CCRN) 1233 (Given - Provider: Yousuf Lacey RDesiree) lidocaine-EPINEPHrine 1 %-1:100,000 injection (XYLOCAINE W/EPI) (CANCELED) [...] of 10, Starting on Tue12/21/23 at 2201 Or oxyCODONE IR tablet 10 mg (ROXICODONE)Jump to med 10 mg, oral, Every 4 hours PRN, severe pain or score 7-10 of 10, or pain greater than comfort goal, Starting on Tue12/21/23 at 2201 documented in this encounter Care Teams Delivery And Mail Sorter Relationship Specialty Start Date End Date Elsewhere, Pcp PCP - General Internal Medicine 12/19/23 documented as of this encounter
--- OUTSIDE RECORDS SUMMARY | 2023-12-30 07:12 | XMS_ITS | Encounter Summary ---
Author Name Unknown Organization [facility] Address [address] [place] [address] Care Team Providers Care Residence Manager Name Role Phone Unavailable Primary Care Provider Unavailabl e Encounter Details Date Type Department Care Team (Latest Contact Info) Description 11/15/2023 Clinical Communication Department of Otorhinolaryngology in [place], [place] [address] [place] [address] Prescheduling, Provider Social History Tobacco Use Types Packs/Day Years Used Date Smoking Tobacco: Former Cigarettes Q uit: 1996 [facility] Utilities Answer Date Recorded In the past 12 months has [facility] electric, gas, oil, or water company threatened [...] often do you attend chur ch or catholic services? Never 02/25/2021 Do you belong to any clubs o r organizations such as mu-ism groups, unions, fraternal or athletic groups, or [...] and heating? Not hard at all 02/25/2021 [facility] of Occupat ional Health - Occupational Stress [...] Date Recorded Dental: Regular Dentist Yes 09/22/19 23 Employment Answer Date Recorded Employment status [...] Sex Assigned at Female 11/15/2023 8:06 PM GRILL ATTENDANT Gender Identity Female 11/15/2023 8:06 PM GRILL ATTENDANT Sexual Orientation Straight 11/15/2023 8: 06 PM GRILL ATTENDANT documented as of this encounter Plan of Treatment Upcoming Encounters Date Type Department Care Team (Late st Contact Info) Description 01/31/2024 8:30 AM CDT Office Visit Department of Otorhinolaryngology in [place], [place] [address] [place] [phone] Daniel Domínguez M.D. [address] [place] [phone] documented as of this encounter Visit Diagnoses Not on filedocumented in this encounter
--- OUTSIDE RECORDS SUMMARY | 2023-12-30 07:12 | XMS_ITS | Encounter Summary ---
Author Name Unknown Organization [facility] Address [address] [place] [address] Care Team Providers Care Water Resource Engineering Specialist Name Role Phone Elsewhere, Pcp Primary Care Provider Unavailabl e Encounter Details Date Type Department Care Team (Latest Contact Info) Description 12/20/2023 8:22 AM CDT - 12/20/2023 11:59 PM CDT Hospital Encounter Department of Laboratory Medicine and Pathology, [facility] in [place], [place] [address] [place] [address] Lai Gallego, CHUCKY, C.N.P., M.S. [address] [place] [address] Preanesthetic Medical Exam; Mass Parotid; Diabetes Mellitus Type 2 Without Complication (HCC) Discharge Disposition: Home or Self Care Social History Tobacco Use Types Packs/Day Years Used Date Smoking Tobacco: Former Cigarettes Q uit: 09/20/1991 Alcohol Use Standard Drinks/Week Comments Yes 8 (1 standard drink = 0.6 oz pur e alcohol) [facility] Utilities Answer Date Recorded In the past 12 months has e [employer], gas, oil, or water company threatened to [...] often do you attend chur ch or gnosticist services? Never 02/25/2021 Do you belong to [...] and heating? Not hard at all 02/25/2021 [facility] of Occupat ional Health - Occupational Stress [...] your living situation today? I have a [facility] place to live 11/15/2023 Education Answer Date Recorded What is the highest level of school you have completed or the highest degree you have received? Some college, no degree 02/25/2021 Sex and Gender Information Value Date Recorded Sex Assigned at Female 11/15/2023 8:06 PM PRESS BOX CUSTODIAN Gender Identity Female 11/15/2023 8:06 PM PRESS BOX CUSTODIAN Sexual Orientation Straight 11/15/2023 8: 06 PM PRESS BOX CUSTODIAN documented as of this encounter Medications at Time of Discharge [...] 12/24/2023 12/28/2023 documented as of this encounter Plan of Treatment Upcoming Encounters Date Type Department Care Team (Late st Contact Info) Description 01/31/2024 8:30 AM CDT Office Visit Department of Otorhinolaryngology in [place], [place] [address] [place] [address] Daniel Domínguez M.D. [address] [place] [address] documented as of this encounter Procedures Procedure Name Priority Date/Time Associated Diagnosis Comments CBC WITHOUT DIFFERENTIAL, B Routine 12/20/2023 8:38 AM CDT Preanesthetic Medical Exam Mass Parotid HEMOGLOBIN A1C, B Routine 12/20/2023 8:3 8 AM CDT Diabetes Mellitus Type 2 Without Complication (HCC) BASIC METABOLIC PANEL, S/P Routine 12/20/2023 8:38 AM CDT Preanesthetic Medical Exam Mass Parotid documented in this encounter Results * (ABNORMAL) Hemoglobin A1c [...] APRN, C.N.P., M.S.N. LAB BLO OD ADD-ON [facility] [address] [place] [address], [facility] [address] [place] [address] * Basic Metabolic Panel (12/20/2023 8:38 AM [...] 8:38 AM CDT 12/20/2023 9:25 AM CDT Cassidy Ayoub APRN.N.P., M.S. LAB BLO OD ADD-ON [facility] [address] [place] [address], [facility] [address] [place] [address] * (ABNORMAL) CBC without Differential (12/20/2023 8:38 [...] 8:38 AM CDT 12/20/2023 9:04 AM CDT Lolita Ayoub APRNN.P., M.S. LAB BLO OD ADD-ON [facility] [address] [place] [address], [facility] [address] [place] [address] documented in this encounter Visit Diagnoses Diagnosis Preanesthetic Medical Exam Mass Parotid Diabetes Mellitus Type 2 Without Complication (HCC) documented in this encounter Care Teams Water Resource Engineering Specialist Relationship Specialty Start Date End Date Elsewhere, Pcp PCP - General Internal Medicine 12/19/23 documented as of this encounter
--- OUTSIDE RECORDS SUMMARY | 2023-12-30 07:12 | XMS_ITS | Clinical Summary ---
Author Name Unknown Organization [facility] Address [place], [place] [address] Care Team Providers Care Crew Foreman Name Role Phone Liss Madera MD Primary Care Provider [phone] Allergies No known active allergies Medications Medication Sig Dispensed Refills Start Date End Date Status MULTIVITAMIN TAB take 1 tablet by oral route once daily with food 0 08/01/2008 Active cholecalciferol (VITAMIN D) 1,000 unit capsule Take 1 capsule by mouth once daily. 0 08/11/2010 Active loratadine (CLARITIN) 10 mg tablet Take 1 tablet by mouth once daily. 0 07/29/2011 Active omega-3 fatty acids-vitamin E (FISH OIL) 1,000 mg Cap Take one capsule once daily 0 07/29/2011 Active coenzyme q10 (CO Q-10) 100 mg cap Take 1 capsule by mouth once daily. 0 06/26/2013 Active magnesium 250 mg tab Take 1 tablet by mouth once daily. 0 01/30/2019 Active aspirin (ECOTRIN) 81 mg enteric coated tabletIndications:Pr e-diabetes Take 1 tablet by mouth once daily. 0 01/30/2019 Active lisinopril-hydrochlo rothiazide (10-12.5 mg) tablet (PRINZIDE; ZESTORETIC)Indicatio ns:Essential hypertension Take 1 Tablet by mouth once daily. 90 Tablet 3 11/27/2020 Active atorvastatin (LIPITOR) 10 mg tabletIndications:Hy perlipidemia, unspecified hyperlipidemia type Take 1 Tablet (10 mg) by mouth at bedtime. 90 tablet. 3 11/27/2020 Active levothyroxine (SYNTHROID) 125 mcg tabletIndications:Hy pothyroidism, unspecified type Take 1 Tablet (125 mcg) by mouth once daily. 90 Tablet 3 11/27/2020 Active CPAPIndications:MOOKIE on CPAP replacement CPAP machine for home use at pressure: 11 cmw , Heated humidifier x 1 q 5 yr, Humidifier chamber x 1 q 6 mo, nasal mask x1 q 3mos, nasal cushion x 2 q mo, heated tubing x 1 q 3 mo, Headgear x 1 q 6 mo, Filters: Disposable x 2 q mo non-disposable filters x1 q 6mo, Length of Need: 99 months, Frequency of use: Daily 0 05/13/2021 Active Active Problems Problem Noted Date Diagnosed Date Type 2 diabetes mellitus wit hout complication, without long-term current use of insulin 07/13/2018 Overview: 07/07/18 diagnosed based on Fasting Glucose 129. A1C then 6.2. Obstructive sleep apnea 03/22/2017 Pancreatic cyst 06/04/2016 Overview: Monitored with MRI. Follows at [facility]. Last [facility] consult 02/2021 recommended CA19-9 level and then follow up MRI in 1 year (which is December 2021 as last MRI December 2020). Patient was instructed to contact [facility] regarding getting the CA19-9 level as medicare would not let me order when I tried. TMJ (dislocation of temporomandibular joint) 02/2013 Personal history of colonic polyps 08/22/2012 Overview: Colonoscopy 08/2012 polyp repeat in 5 years Colonoscopy 04/2014 diverticulosis repeat in 5 years Colonoscopy 06/2019 polyp, repeat in 5 years Mixed hyperlipidemia 08/13/2009 Right shoulder pain 08/05/2009 Thumb injury 05/05/2009 Pre-diabetes 09/25/2008 Unspecified essential hypertension 02/08/2008 Unspecified essential hypertension 07/05/2007 Unspecified hypothyroidism 07/05/2007 Enthesopathy of unspecified site 07/05/2007 Overview: wrist Immunizations Name Administration Dates Next Due Amb Influenza, Inactivated A IIV4 (Age 65+ Years) Preserv Free 07/07/2020 COVID-19 vaccine (thereNow NTech 30mcg/0.3mL) PF, MDV 11/14/2020 Influenza, Inactivated AIIV4 (Age 65+ Years) Preserv Free 06/03/2021 Influenza, Inactivated IIV3 (Age 65+ Years) Preserv Free 08/20/2019,07/31/2018,07/25/2017 Pneumococcal Poly,23-Valent (Pneumovax) 07/31/20 18 Pneumococcal conj 13-Valent (Prevnar 13) 017 Td (Age >=7 Years) 09/06/2017,05/21/1997 Tdap 09/06/2017,07/05/2007 Zoster (Zostavax-ZVL, live) 08/24/2012 Family History Medical History Relation Name Comments Good Health Brother 2 Cancer Brother 3 bladder Other Father Fibrosis in [place] Diabetes Maternal Aunt Diabetes Maternal Grandmother Diabetes Mother Heart Disease Mother Bypass surgery Hypertension Mother Stroke Mother 91 yr Heart Disease Paternal Grandfather Diabetes Sister 1 gestational Good Health Sister 2 Cancer-breast No Family History Cancer-ovarian No Family History Relation Name Status Comments Brother 1 (Age 63) metastatic ca bladder Brother 2 Brother 3 Father emphysema Maternal Aunt Maternal Grandmother Mother (Age 93) Paternal Grandfather Sister 1 Sister 2 Social History Tobacco Use Types Packs/Day Years Used Date Smoking Tobacco: Former Cigarettes 1.5 15 0 10/27/1978 - 10/27/1993 Smokeless Tobacco: Never Tobacco Cessation:Counseling Given: Yes Alcohol Use Standard Drinks/Week Comments Yes 0 (1 standard drink = 0.6 oz pur e alcohol) 1-2 per night PHQ-2 Answer Date Recorded PHQ-2 TOTAL SCORE 0 11/27/2020 Social Connections Answer Date Recorded Frequency of Communication with Friends and Fami ly Not on file 09/14/2023 Financial Resource Strain Answer Date R ecorded Difficulty of Paying Living Expenses Not on file 09/12/2021 Difficulty of Paying Living Expenses Not on file 09/12/2021 Sex and Gender Information Value Date Recorded Sex Assigned at Not on file Gender Identity Not on file Sexual Orientation Not on file Obstetrics History Para Term AB IAB SAB Ectopic Multiple Livin g Live Births 1 1 0 Date Outcome GA Total Labor Labor/2nd/3rd Weight Sex Delivery Anes PTL Mildred A1 A5 Name Cl in AB Last Filed Vital Signs Vital Sign Reading Time Taken Comments Blood Pressure 119/74 05/13/2021 1:42 PM CDT Pulse 64 05/13/2021 1:42 PM CDT Temperature 37.1 ??C (98.7 ??F) 08/20/2019 1:48 PM CS T Respiratory Rate 20 03/22/2017 10:3 5 AM CDT Oxygen Saturation 96% 05/13/2021 1:42 PM CDT Inhaled Oxygen Concentration - - Weight 90.6 kg (199 lb 12.8 oz) 05/13/2021 1:42 PM CDT Height 166 cm (5' 5.35) 05/13/2021 1:42 PM CDT Body Mass Index 32.89 05/13/2021 1:42 PM CDT Plan of Treatment Health Maintenance Due Date Last Done Comments Zoster (shingles) series for age 50+ (2 of 3) 10/19/2012 08/24/2012 Depression screening for age 12+ 11/27/2021 11/27/2020, 08/23/2019, 08/20/2019, Additional history exists Medicare Wellness for age 65+ 11/28/2021, 08/20/2019, 07/31/2018, Additional history exists BMI (ht and wt on same day) for age 18+ 05/13/2022 05/13/2021, 11/27/2020, 04/30/2020, Additional history exists Mammogram for age 45-75 06/03/2022 06/03/20, 05/16/2020, 10/02/2018, Additional history exists COVID-19 vaccine series ( season) 2023 01/19/2022, 07/10/2021, 2020, Additional history exists Influenza for age 65+ 05/13/2024 06/03/2021 , 07/07/2020, 08/20/2019, Additional history exists Colonoscopy through age 75 06/26/202406/26, 06/26/2019, 05/03/2014, Additional history exists Lipids for age 45-75 03/06/2026 03/06/2021, 11/25/2020, 05/16/2020, Additional history exists Tetanus booster 09/06/2027 09/06/2017, 08/13, 07/05/2007, Additional history exists Hepatitis C screening for ag e 18-79 Completed 08/16/2014 Tdap Completed 09/06/2017, 07/05/2007 Pneumococcal series for age 65+ Completed 8, 07/25/2017 DEXA/DXA scan for age 65+ Completed 08/28/2018, 02/2013 Procedures Procedure Name Priority Date/Time Associated Diagnosis Comments XR MAMMO BILAT SCREENING Routine 06/03/2021 1:30 PM CDT Visit for screening mammogram LIPID PANEL W REFLEX MEASURED LDL Routine 03/06/2021 9:05 AM CDT Hyperlipidemia, unspecified hyperlipidemia type COLONOSCOPY 06/26/2019 7:47 AM CDT XR DXA BONE DENSITY 2 SITES AXIAL Routine 08/28/2018 11:31 AM DIVER PUMPER Menopause ANTI HCV Routine 08/16/2014 8:02 AM DIVER PUMPER Need for hepatitis C screening test from Last 3 Months or Most Recently Relevant to Health Maintenance Results * XR MAMMO BILAT SCREENING (06/03/2021 1:30 PM CDT) Anatomical Region Laterality Modality BREASTS, Breast Left, Breast Right Bilateral Mammography Impressions 06/04/2021 3:52 PM CDT ??There is no radiographic evidence for malignancy. ??Recommend annual mammograms. MAMMOGRAM ASSESSMENT: ??ACR 1 Negative PATIENTS: You will also receive a letter with your examination results in an easy to read format. ??If you have questions about your results, please contact your referring provider. Narrative 06/04/2021 3:52 PM CDT For Patients: As a result of the Century Cures Act, medical imaging exams and procedure reports are released immediately into your electronic medical record. You may view this report before your referring provider. If you have questions, please contact your health care provider. XR MAMMO BILAT SCREENING [[id number]] CLINICAL HISTORY: ??This is an asymptomatic 70 y.o. patient. INDICATION FOR EXAM: Mammogram Screening. TECHNIQUE: CC & MLO views were obtained. ??This study was evaluated with the assistance of Computer-Aided Detection. COMPARISON FILM: Yes 05/16/20 [facility] 10/02/18 [facility] FINDINGS: ??The breasts are almost entirely fatty. There are no dominant masses, suspicious micro calcifications or areas of architectural distortion. Magalie Castro DO MAMMO * (ABNORMAL) LIPID PANEL W REFLEX MEASURED LDL (03/06/2021 9:05 AM CDT) CHOLESTEROL,TOTAL 131 100 - 199 mg/dL 03/06/2021 2:06 PM CDT [facility] TRIGLYCERIDES 181(H) <150 mg/dL 03/06/2021 2:06 PM CDT [facility] HDL CHOLESTEROL 34(L) >40 mg/dL 2:06 PM CDT [facility] NON-HDL CHOLESTEROL 97 <145 mg/dl 03/06/2021 2:06 PM CDT [facility] CHOL/HDL RATIO 3.85 <4.50 03/06/2021 2:06 PM CDT [facility] LDL CHOLESTEROL 61 <=130 mg/dL 03/06/2021 2:06 PM CDT [facility] VLDL CHOLESTEROL 36 mg/dL 03/06/20 21 2:06 PM CDT [facility] PROVIDER ORDERED STATUS RANDOM 03/06/2021 2:06 PM CDT [facility] Blood BLOOD SPECIMEN / Unknown Butterfly / Unknown 03/06/2021 9:05 AM CDT 03/06/2021 9:11 AM CDT Magalie Castro DO CHEMISTRY [facility] [address] [place] [address], * COLONOSCOPY (06/26/2019 7:47 AM CDT) 06/26/2019 7:47 AM CDT Narrative Transcriptions Vivek Laws MD - 06/26/2019 8:53 AM CDT Patient Name: Zaida Pastor Procedure Date: 06/26/2019 Gender: Female Date of : 1950 Admit Type: Outpatient Procedure: Colonoscopy Proceduralist: Vivek Laws MD , Jojo De Jesus RN(Nurse) Indications/Pre-Op Diagnosis: Surveillance: Personal history ofadenomatous polyps on last colonoscopy 5 years ago, Last colonoscopy: April 2014 Medications: Fentanyl 100 micrograms IV, Midazolam 2 mgIV, The level of sedation administered wasmoderate Procedure Description: The patient had risks, benefits and alternatives explained to andgave informed consent. The patient had a stable cardiopulmonary status and judged an adequate candidate for conscious sedation. The [id number] was passed through the anus and advanced tothe cecum, identified by appendiceal orifice and ileocecal valve. The colonoscopy was performed without difficulty. The patient toleratedthe procedure well. The quality of the bowel preparation was good. The ileocecal valve, appendiceal orifice, and rectum were photographed. Complications: No immediate complications. Estimated Blood Loss & Specimen: Estimated blood loss: none. Specimen collected - Yes and sent to Laboratory Findings: The perianal and digital rectal examinations were normal. A 3 mm polyp was found in the ascending colon. The polyp was sessile. The polyp was removed with a cold biopsy forceps. Resection and retrieval were complete. A few small-mouthed diverticula were found in the sigmoid colon. The exam was otherwise without abnormality on direct and retroflexion views. Impressions/Post-Op Diagnosis: - One 3 mm polyp in the ascending colon, removed with a cold biopsy forceps. Resected and retrieved. - Diverticulosis in the sigmoid colon. - The examination was otherwise normal on direct and retroflexionviews. Recommendation: - Patient has a contact number available for emergencies. The signsand symptoms of potential delayed complications were discussed with the patient. Return to normal activities tomorrow. Written discharge instructions were provided to the patient. - Resume previous diet. - Continue present medications. - Await pathology results. - Repeat colonoscopy in 5 years for surveillance. Moderate Sedation: Moderate (conscious) sedation was administered by the endoscopy nurse and supervised by the endoscopist. The following parameters were monitored: oxygen saturation, heart rate, respiratory rate, blood pressure, adequacy of pulmonary ventilation and reponse to care. [facility] and nursing notes for moderate sedation details. Total physician intraservice time was 19 minutes. Vivek Laws MD 06/26/2019 8:53:14 AM This report has been signed electronically. Note Initiated On: 06/26/2019 7:47 AM Procedure Code(s): --- Professional --- 14982, Colonoscopy, flexible; with biopsy, single or multiple Diagnosis Code(s): --- Professional --- Z86.010, Personal history of colonicpolyps D12.2, Benign neoplasm of ascending colon K57.30, Diverticulosis of large intestine without perforation or abscess withoutbleeding CPT copyright 2018 [employer]. All rights reserved. The codes documented in this report are preliminary and upon inpatient coder reviewmay be revised to meet current compliance requirements. Scope In: 8:11:20 AM Scope Withdrawal Time 0 hours 8 minutes 43 seconds Scope Out: 8:28:43 AM Vivek Laws MD PROCEDURE ORD * XR DXA BONE DENSITY 2 SITES AXIAL [06600.1] (08/28/2018 11:31 AM DIVER PUMPER) Anatomical Region Laterality Modality Spine, HIPS, HIPL, HIPR Other Narrative 09/08/2018 8:04 AM DIVER PUMPER Please see scanned document for results of this study. Magalie Castro DO DEXA * ANTI HCV (08/16/2014 8:02 AM DIVER PUMPER) HEPATITIS C ANTIBODY Non-Reacti ve Non-Reacti ve 08/16/2014 1:15 PM DIVER PUMPER [facility] Blood specimen (specimen) BLOOD SPECIMEN / Unknown Venipuncture / Unknown 08/16/2014 8:02 AM DIVER PUMPER 08/16/2014 8:02 AM DIVER PUMPER Narrative [facility] - 08/16/2014 1:15 PM DIVER PUMPER Antibodies to HCV not detected; does not exclude the possibility of exposure to HCV. Sandi Mota PROPERTY ASSESSMENT MONITOR SEND OUTS [facility] [address] [place] [address], [place] from Last 3 Months or Most Recently Relevant to Health Maintenance Care Teams Crew Foreman Relationship Specialty Start Date End Date Liss Madera MD [address] [place] [address] PCP - General Internal Medicine 05/04/22
== END 2023-12-29 10:36 | disposition home or self-care (01) ==
LOC: NFLDREF 12-30 07:08
PROVIDERS: PCP Internal Medicine; Referring Provider Internal Medicine; Visit Provider Internal Medicine
DX: E11.9 Type 2 diabetes mellitus without complications (principal)
CPT/HCPCS: 82043; 82570

== ENCOUNTER 2024-02-01 11:00 | Outpatient (RCR) | payer MEDICARE, SELFPAY ==
--- NOTE | 2023-11-07 11:08 | PT.OPEX ---
PT [place] [facility] Eval PT [facility] Outpatient Eval Start: 11/07/23 08:46 Freq: Status: Active Protocol: Document 11/07/23 08:46 VIOLETKat (Rec: 11/07/23 10:40 KLV [id number]) E-signed By Lissett Hensley, PT Physical Therapy Outpatient Evaluation Insurance Information Recert Due Date 02/01/24 Insurance Name Medicare B Medical Diagnosis Right hip pain Tendinopathy of right biceps tendon Treating Diagnosis Right hip pain, limited hip ROM, gross LE weakness, core weakness Right shoulder pain, gross shoulder/postural weakness and poor postural positioning Referring MD Madera Subjective Subjective Zaida reports to PT with primary complaint of right groin pain. She notes chronic low back and hip pain however exacerbated recently following a chiropractor visit. She went [place] trip out [place] ( [place] immediately following this however had such severe pain that she was seen in the ED upon arrival at destination (10/25/23) and ended up getting hip and back x-rays. She was given morphine in ED and sent home with steroids and muscle relaxers to make it home from her trip. Since then she has been ambulating with a cane. Pain has improved some however still has limited mobility of her right hip and minimal ability to bear weight at time throughout R LE without shooting groin pain. Reports minimal to no low back pain at this time. Denies radicular symptoms past the knee or posterior leg symptoms. Denies falls. 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 This has improved since starting the steroids as well with minimal to no pain to report in her shoulder today. She does have a follow up with her PCP and referring MD Dr. Madera this afternoon to discuss recent ED visit. PMH: DM II, HTN, arthritis x-ray R hip 10/25/23: moderate OA x-ray lumbar 10/25/23: grade I anterolisthesis L4 over L5, multilevel disc degeneration, atherosclerotic calcification abdominal aorta and iliac arteries Pain Comments 8/10 worst R hip 2/10 dull ache most of the day R hip 0/10 shoulder Date of Last Physician Visit 10/17/23 Date of Next Physician Visit 11/07/23 Current Work Status Retired Precautions Therapy Limitations/Systems Review Not Limited Objective Other/Pertinent Objective Hip/lumbar: Lumbar ROM: -Flx: patella -Ext: unable -R Rot: 25% pain R side -L Rot: 75% slight pull R side -R Sidebend: unable -L Sidebend: 100% Standing posture: L trunk lateral shift, minimal WB through R LE LE ROM (R/L): -Hip Ext: neutral/10 -Hip Flx: 110-stretch noted/ 110 -Hip ER: 45/45 -Hip IR: 5/10 Jan test: + HF and rectus femoris R LE, - L LE RITA: + R LE Scour: + R LE SLR: - B LE LE Strength (R/L): -Hip Abd: R: 4/5, L: 4+/5 -Hip Ext: R: 4-/5, L: 4+/5 -Hip Flx: R: 4-/5, L: 4+/5 Shoulder: ROM: equal and pain free B Sitting posture: rounded shoulders Scapular retraction: overactivation of B UT UE Strength (R/L): no pain with testing -ER0: R: 4-/5, L: 4+/5 -IR0: R: 4+/5, L: 5-/5 -FF: R: 4-/5, L: 4+/5 -Abduction: R: 4-/5, L: 4+/5 Palpation: slight TTP proximal bicep tendon insertion R UE All RC testing: - Functional Test Performed & Score LEFS: 18/80 SPADI: 55/130 Assessment Assessment/Impression Patient is a 72 year old female presenting to physical therapy for evaluation and treatment of right hip and right shoulder pain. Patient presents with L lateral shift, limited hip ROM (particularly IR and extension), gross LE and core weakness, limited lumbar ROM, TTP R proximal bicep tendon. Appears to be consistent with R hip OA vs lumbar radiculopathy as well as bicep tendinopathy. X-ray of lumbar spine indicated atherosclerotic calcification of abdominal aorta and iliac arteries. Patient has follow up with PCP this afternoon to discuss these results. These impairments are limiting the patients ability to walk without AD, negotiate stairs, stand and sleep comfortably, reach and lift repetitively. Patient appears motivated to participate in PT and presents with good prognosis to improve mobility, strength, proprioception and return to functional activities with skilled physical therapy intervention. Moderate improvement in lateral shift noted pre to post session. Will progress patient as able in collaboration with referring MD. Primary Functional Limitations walk without AD, negotiate stairs, stand and sleep comfortably, reach and lift repetitively Plan of Care Rehabilitation Potential Good Physical Therapy Goals In 6 weeks (12/19/23) Patient will transition from cane to independent gait with normal mechanics. Patient will demonstrate equal and <2/10 hip ROM in order to dress and bathe comfortably. Pt will be able to ascend/ descend 1 flight of stairs in order to perform ADLs <2/10 pain In 12 weeks (01/30/24) Pt will exhibit RC, GH, and periscapular strength no less than 4+/5 in order return to recreational activities including repetitive lifting with cooking, skiing, biking Pt will demonstrate at least 4 +/5 hip and core strength in order to progress back into recreational activities Pt will exhibit 9 pt improvement in LEFS Outcome measure to demonstrate functional improvement and progress towards goals. Pt will exhibit 20 point improvement in SPADI Outcome measure to demonstrate functional improvement and progress towards goals. Treatment Plan/Direct Interventions Gait Training,Ice/Cold/ Vasopneumatic,Joint Mobilization,Manual Therapy, Neuromuscular Re-ed,Self-Care/ Home Management,Therapeutic Activities,Therapeutic Exercises Frequency/Duration 1x/wk for 6 weeks with additional 4-6 sessions prn based on progress Patient Will Be Discharged From Therapy Completion of LTG(s), Independent w/HEP, Independently Progressing Evaluation Billing Untimed Code Treatment Minutes 40 Complexity Moderate Certification Information Initial Certification Date 11/07/23 Ending Certification Date 02/01/24 Provider Signature Shows Agreement With POC & Medical Necessity Physician Signature & Date Requested Please Sign/Date Here Physician Comment/Change : Physician NPI Number #
== END 2024-02-01 12:06 | disposition home or self-care (01) ==
PROVIDERS: PCP Internal Medicine; Visit Provider Internal Medicine
DX: M67.921 Unspecified disorder of synovium and tendon, right upper arm (principal); M76.31 Iliotibial band syndrome, right leg; Z51.89 Encounter for other specified aftercare
CPT/HCPCS: 36415; 70491; 82565; 97110; 97140; 97162; Q9967

== ENCOUNTER 2024-04-09 09:30 | Outpatient (CLI) | payer MEDICARE, SELFPAY ==
--- OUTSIDE RECORDS SUMMARY | 2024-04-09 09:35 | XMS_ITS ---
Author Organization [facility] Address [address] [place] [address] Care Team Providers Care Automation Technologist Name Role Phone Unavailable Unavailable Unavailable Surgery Details Not on file Complications Check Surgery Details section. Procedure Estimated Blood Loss Check Surgery Details section. Procedure Findings Check Surgery Details section. Procedure Specimens Taken Check Surgery Details section.
--- OUTSIDE RECORDS SUMMARY | 2024-04-09 09:35 | XMS_ITS | Encounter Summary ---
Author Organization [facility] Address [address] [place] [id number] Care Team Providers Care Cement Kiln Operator Name Role Phone Elsewhere, Pcp Primary Care Provider Unavailabl e Reason for Visit * Reason Onset Date Comments presurgery questions 11/18/2023 Encounter Details Date Type Department Care Team (Latest Contact Info) Description 11/18/2023 Clinical Communication Department of Otorhinolaryngology in [place], [place] [address] [place] [address] Daniel Domínguez M.D. [address] [place] [phone] presurgery questions Social History Tobacco Use Types Packs/Day Years Used Date Smoking Tobacco: Former Cigarettes Q uit: 1996 [facility] Utilities Answer Date Recorded In the past [...] often do you attend chur ch or presybeterian services? Never 02/25/2021 Do you belong to any clubs o r organizations such as samaritan groups, unions, fraternal or athletic groups, or [...] and heating? Not hard at all 02/25/2021 [facility] - [...] your living situation today? [facility] 12/22/2023 Education Answer Date Recorded What is the highest level of school you have completed or the highest degree you have received? Some college, no degree 02/25/2021 Sex and Gender Information Value Date Recorded Sex Assigned at Female 11/15/2023 8:06 PM GOLF STUD RIVETER Gender Identity Female 11/15/2023 8:06 PM GOLF STUD RIVETER Sexual Orientation Straight 11/15/2023 8: 06 PM GOLF STUD RIVETER documented as of this encounter Miscellaneous Notes [...] home. Please reach out to her at [phone] Surg: December 20 parotidectomy STUD RIVETER documented in this encounter Plan of Treatment Not on file documented as of this encounter Visit Diagnoses Not on filedocumented in this encounter Care Teams Cement Kiln Operator Relationship Specialty Start Date End Date Elsewhere, Pcp PCP - General Internal Medicine 12/19/23 documented as of this encounter
--- OUTSIDE RECORDS SUMMARY | 2024-04-09 09:35 | XMS_ITS | Encounter Summary ---
Author Organization [facility] Address [address] [place] [id number] Care Team Providers Care Review Scheduling Coordinator Name Role Phone Elsewhere, Pcp Primary Care Provider Unavailabl e Reason for Visit * Reason Onset Date Comments Post Surgery Question 12/23/2023 Encounter Details Date Type Department Care Team (Latest Contact Info) Description 12/23/2023 Clinical Communication Department of Otorhinolaryngology in [place], [place] [address] [place] [address] Daniel Domínguez M.D. [address] [place] [address] [phone] Post Surgery Question Social History Tobacco Use Types Packs/Day Years Used Date Smoking Tobacco: Former Cigarettes Q uit: 09/20/1991 Alcohol Use Standard Drinks/Week Comments Yes 8 (1 standard drink = 0.6 oz pur e alcohol) [facility] Utilities Answer Date Recorded In the past 12 months has e electric, gas, oil, or water Fleep threatened to shut off services in your home? No 12/22/2023 Social Connection and Isolat ion Panel [NHANES] Answer Date Recorded In a typical week, how many times do you talk on the phone with family, friends, or neighbors? Once a week 02/25/2021 How often do you get togethe r with friends or relatives? Once a week 02/25/2021 How often do you attend [facility] or amish services? Never 02/25/2021 Do you belong to [...] Not hard at all 02/25/2021 [facility] - Occupational Stress Questionnaire Answer Date Recorded [...] your living situation today? I have a [facility] place to live 12/22/2023 Education Answer Date Recorded What is the highest level of school you have completed or the highest degree you have received? Some college, no degree 02/25/2021 Sex and Gender Information Value Date Recorded Sex Assigned at Female 11/15/2023 8:06 PM LENS GAUGER Gender Identity Female 11/15/2023 8:06 PM LENS GAUGER Sexual Orientation Straight 11/15/2023 8: 06 PM LENS GAUGER documented as of this encounter Miscellaneous Notes [...] on filedocumented in this encounter Care Teams Review Scheduling Coordinator Relationship Specialty Start Date End Date Elsewhere, Pcp PCP - General Internal Medicine 12/19/23 documented as of this encounter
--- OUTSIDE RECORDS SUMMARY | 2024-04-09 09:35 | XMS_ITS | Clinical Summary ---
Author Organization [facility] Address [address] [place] [address] Care Team Providers Care Chemical Engineering Technician Name Role Phone Elsewhere, Pcp Primary Care Provider Unavailabl e Source Comments Patient records contain information from all sites at [facility]. For routine questions regarding patient records, call [phone] during business hours, M-F 8:00 AM - 5:00 PM Central Time. Record requests for emergency care only can be directed to [phone] at any time.[facility] Allergies No known active allergies Medications Medication Sig Dispensed Refills Start Date End Date Status atorvastatin (LIPITOR) 10 mg tablet Take 10 mg by mouth. 11/27/2020 Active levothyroxine (SYNTHROID, LEVOTHROID) 125 mcg tablet Take 1 tablet by mouth every morning. 05/19/2016 Active lisinopril-hydroCHL OROthiazide (PRINZIDE,ZESTORETI C) 10-12.5 mg per tablet Take 1 tablet [...] Active oxyCODONE (ROXICODONE) 5 mg immediate release tabletIndications:A cute Pain Take 1 tablet (5 mg total) by mouth every 4 (four) hours as needed for pain Indication: Acute Pain. 12 tablet 12/21/2023 Active sennosides-docusate sodium (Senna with Docusate Sodium) 8.6-50 mg per tablet Take 1 tablet by mouth 2 (two) times a day. 12/21/2023 Active acetaminophen (TYLENOL) 500 mg tablet Take 2 tablets (1,000 mg total) by mouth every 6 (six) hours as needed for pain. 12/22/2023 Active carboxymethylcellul ose (REFRESH PLUS) 0.5 % ophthalmic solution Administer 1 drop into the left eye every 10 (ten) minutes as needed for dry eyes. 12/22/2023 Active ibuprofen (ADVIL,MOTRIN) 200 mg tablet Take 3 tablets (600 mg total) by mouth every 8 (eight) hours as needed for pain. Take with food. 12/22/2023 Active Active Problems Problem Noted Date Diagnosed Date Anesthesia Complication Personal History 024 Overview (12/20/2023): Difficult IV start. Hard to find. Mass Parotid 11/16/2023 Hyperlipidemia 11/16/2023 Diabetes Mellitus Type 2 Without Complication Overview (11/16/2023): 07/07/18 diagnosed based on Fasting Glucose 129. A1C then 6.2. Apnea Sleep Obstructive 03/22/2017 Temporomandibular Joint Disorder 08/17/2013 Hypertension Essential Primary 07/05/2007 Hypothyroidism 07/05/2007 Encounters Date Type Department Care Team Description 01/31/2024 8:30 AM CDT Office Visit Department of Otorhinolaryngology in [place], [place] [address] [place] [address] Daniel Domínguez M.D. Follow Up Examination Status Post Surgery (Primary Dx); Mass Parotid from Last 3 Months Family History Medical History Relation Name Comments Other cancer Brother Jarrett Felder Lung cancer Father Napoleon Felder Fibrosis also Leukemia Father's Brother Raz Felder Arthritis Mother Kenzie Felder Coronary artery disease Mother Kenzie Felder 5 bypasses Dementia Mother Kenzie Felder at 93 years Diabetes Mother Kenzie Felder Hyperlipidemia Mother Kenzie Felder Hypertension Mother Kenzie Felder Stroke Mother Kenzie Felder Transient ischemic attack Mother Kenzie Sullivan n Relation Name Status Comments Brother Jarrett Felder Father Napoleon Felder Father's Brother Raz Felder Mother Kenzie Felder Social History Tobacco Use Types Packs/Day Years Used Date Smoking Tobacco: Former Cigarettes Q uit: 09/20/1991 Tobacco Cessation:Counseling Given: Not Answered Alcohol Use Standard Drinks/Week Comments Yes 8 (1 standard drink = 0.6 oz pur e alcohol) [facility] Utilities Answer Date Recorded In the past 12 months has e [employer], gas, oil, or water [employer] threatened to shut off services in your [...] often do you attend chur ch or jain services? Never 02/25/2021 Do you belong to any clubs o r organizations such as zoroastrian groups, unions, fraternal or athletic groups, or [...] and heating? Not hard at all 02/25/2021 [facility] [place] of Occupat ional Health - Occupational Stress [...] money to buy more. Never true 12/22/19 Within the past 12 months, t he [...] Dental Answer Date Recorded Dental: Regular Dentist Unknown 03/02/20 Employment Answer Date Recorded Employment status Retired 11/15/2023 Housing Stability Answer Date Recorded What is your living situation today? I have a [facility] place to live 12/22/2023 Education Answer Date Recorded What is the highest level of school you have completed or the highest degree you have received? Some college, no degree 02/25/2021 Sex and Gender Information Value Date Recorded Sex Assigned at Female 11/15/2023 8:06 PM CONTRACT RUNNER Gender Identity Female 11/15/2023 8:06 PM CONTRACT RUNNER Sexual Orientation Straight 11/15/2023 8: 06 PM CONTRACT RUNNER Last Filed Vital Signs Vital Sign Reading [...] 12/21/2023 12:29 PM CDT Plan of Treatment Health Maintenance [...] history exists Depression Screening (Annual PHQ-2) 09/12/2023 COVID-19 Vaccine (2022-2 4 season) 2023 07/07/2023, 07/06/2022, 01/19/2022, Additional history exists Influenza Vaccine (#1) 2024 , 07/06/2022, 06/03/2021, Additional history exists Hemoglobin A1C 06/20/2024 12/20/2023 Colonoscopy 06/26/2024 06/26/2019, [...] 07/25/2017 Zoster Vaccines Completed 09/02/2021, 03/2021, 08/24/2012 Fall Risk Screen (Annual) Completed 12/21/2023 Procedures Procedure Name Priority Date/Time Associated Diagnosis Comments HEMOGLOBIN A1C, B Routine 12/20/2023 8:3 8 AM CDT Diabetes Mellitus Type 2 Without Complication (HCC) BASIC METABOLIC PANEL, S/P Routine 12/20/2023 8:38 AM CDT Preanesthetic Medical Exam Mass Parotid from Last 3 Months or Most Recently Relevant to Health Maintenance Results * (ABNORMAL) Hemoglobin A1c (12/20/2023 8:38 [...] LAB BLO OD ADD-ON Performing Organization Address City/[facility]/ZIP Co de Phone Number [facility] [address] D[place] [facility] [address] [place] [address] * Basic Metabolic Panel (12/20/2023 8:38 AM CDT) Pathologist [facility] Potassium, S 3.9 3.6 - 5.2 mmol/L [...] APRN, C.N.P., M.S. LAB BLO OD ADD-ON Performing Organization Address City/[facility]/ZIP Co de Phone Number [facility] [address] [place] [address], [facility] DTL [facility] [address] [place] [address] from Last 3 Months or Most Recently Relevant to Health Maintenance Advance Directives For more information, please contact: [phone] * Full Code (Latest Code Status on File) Date Activated Date Inactivated Comments 12/21/2023 10:01 PM 12/22/2023 3:02 PM Question Answer Comments Full Code: Not Discussed Due to: Patient not available Care Teams Chemical Engineering Technician Relationship Specialty Start Date End Date Elsewhere, Pcp PCP - General Internal Medicine 12/19/23
--- OUTSIDE RECORDS SUMMARY | 2024-04-09 09:35 | XMS_ITS | Referral Summary ---
Author Organization [facility] Address [address] [place] [address] Care Team Providers Care Engraver Picture Name Role Phone Elsewhere, Pcp Primary Care Provider Unavailabl e Source Comments Patient records contain information from all sites at [facility]. For routine questions regarding patient records, call [phone] during business hours, M-F 8:00 AM - 5:00 PM Central Time. Record requests for emergency care only can be directed to [phone] at any time.[facility] Encounters Date Type Department Care Team Description 01/31/2024 8:30 AM CDT Office Visit Department of Otorhinolaryngology in [place], [place] [address] [place] [phone] Daniel Domínguez M.D. Follow Up Examination Status Post Surgery (Primary Dx); Mass Parotid from Last 3 Months Allergies No known [...] drink = 0.6 oz pur e alcohol) [facility] Utilities Answer Date Recorded In the past [...] often do you attend chur ch or restorationism services? Never 02/25/2021 Do you belong to [...] and heating? Not hard at all 02/25/2021 [facility] [place] of Occupat ional Health - Occupational Stress [...] your living situation today? I have a [facility] place to live 12/22/2023 Education Answer Date Recorded What is the highest level of school you have completed or the highest degree you have received? Some college, no degree 02/25/2021 Sex and Gender Information Value Date Recorded Sex Assigned at Female 11/15/2023 8:06 PM CARBON SETTER Gender Identity Female 11/15/2023 8:06 PM CARBON SETTER Sexual Orientation Straight 11/15/2023 8: 06 PM CARBON SETTER Last Filed Vital Signs Vital Sign Reading [...] 12/21/2023 12:29 PM CDT Plan of Treatment Not on file Procedures Procedure Name Priority Date/Time Associated Diagnosis [...] APRN C.N.P., M.S.N. LAB BLO OD ADD-ON [facility] [address] [place] [address], [facility] [address] [place] [address] * Basic Metabolic Panel (12/20/2023 8:38 AM [...] Ayoub APRN.N.P., M.S. LAB BLO OD ADD-ON [facility] [address] [place] [address], [facility] [address] [place] [address] from Last 3 Months or Most Recently Relevant to Health Maintenance Advance Directives For more information, please contact: [phone] * Full Code (Latest Code Status on File) Date Activated Date Inactivated Comments 12/21/2023 10:01 PM 12/22/2023 3:02 PM Question Answer Comments Full Code: Not Discussed Due to: Patient not available Care Teams Engraver Picture Relationship Specialty Start Date End Date Elsewhere, Pcp PCP - General Internal Medicine 12/19/23
--- OUTSIDE RECORDS SUMMARY | 2024-04-09 09:35 | XMS_ITS | Encounter Summary ---
Author Organization [facility] Address [address] [place] [address] Care Team Providers Care Bridge Attacher Name Role Phone Elsewhere, Pcp Primary Care Provider Unavailabl e Reason for Referral * Physical Therapy (Routine) - Authorized Specialty Diagnoses / Procedures Referred By Rosina arana Referred To Contact Physical Therapy Diagnoses Mass Parotid Daniel Domínguez M.D. [address] [place] [phone] Referral ID Status Reason Start Date Expiration Date Visits Requested Visits Authorized [id number] Authorized Continuity of Care 01/31/2024 08/01/2025 1 1 Reason for Visit * Reason Comments Follow-up * Outpatient (Routine) - Closed Specialty Diagnoses / Procedures Referred By Rosina arana Referred To Contact Otorhinolaryngology Michell Ann M.D. [address] [place] [address] Daniel Domínguez M.D. [address] [place] [phone] Referral ID Status Reason Start Date Expiration Date Visits Re quested Visits Authorized [id number] Closed 12/21/2023 06/21/2025 1 1 Encounter Details Date Type Department Care Team (Latest Contact Info) Description 01/31/2024 8:30 AM CDT Office Visit Department of Otorhinolaryngology in [place], [place] [address] [place] [address] Daniel Domínguez M.D. [address] [place] [phone] Follow Up Examination Status Post Surgery (Primary Dx); Mass Parotid Social History Tobacco Use Types Packs/Day Years Used Date Smoking Tobacco: Former Cigarettes Q uit: 09/20/1991 Alcohol Use Standard Drinks/Week Comments Yes 8 (1 standard drink = 0.6 oz pur e alcohol) [facility] Utilities Answer Date Recorded In the [...] often do you attend chur ch or mormon services? Never 02/25/2021 Do you belong to any clubs o r organizations such as baptism groups, unions, fraternal or athletic groups, or [...] and heating? Not hard at all 02/25/2021 [facility] [place] of Occupat ional Health - Occupational Stress [...] your living situation today? I have a [facility] place to live 12/22/2023 Education Answer Date Recorded What is the highest level of school you have completed or the highest degree you have received? Some college, no degree 02/25/2021 Sex and Gender Information Value Date Recorded Sex Assigned at Female 11/15/2023 8:06 PM EXPERIMENTAL DISPLAY BUILDER Gender Identity Female 11/15/2023 8:06 PM EXPERIMENTAL DISPLAY BUILDER Sexual Orientation Straight 11/15/2023 8: 06 PM EXPERIMENTAL DISPLAY BUILDER documented as of this encounter Progress Notes * Jese Kingston M.D. - 01/31/2024 8:30 AM CDT REF PROVIDER: Michell Ann M.D. [address] [place] [phone] CHIEF COMPLAINT/PURPOSE OF VISIT: Ms. Emerita Pastor is a 73 y.o. year old female with Chief Complaint Patient presents with Follow-up HISTORY OF PRESENT ILLNESS: Ms. Emerita Pastor is a female with the following oncologic history: Oncology History No history exists. INTERVAL HISTORY: Zaida Pastor is a 73 y.o. female who is doing well with minimal concerns. Initially following surgery, she did have some facial weakness, but she subjectively reports that this has significantly improved. She does endorse some first bite syndrome, but reports that she is getting used to it and that she feels okay from that standpoint. Pain is well-controlled. CURRENT MEDICATIONS: Reviewed and updated in the EMR. ALLERGIES: No Known Allergies. PAST MEDICAL HISTORY: Past Medical History: Diagnosis Date Apnea Sleep Obstructive Diabetes Mellitus NOS Hyperlipidemia Hypertension NOS ? Hypothyroidism Other Injury Of Unspecified Body Region 2009 Polyp Colon ? Sleep Apnea SURGICAL HISTORY: Past Surgical History: Procedure Laterality Date EXPLORATION PARAPHARYNGEAL SPACE Left 12/21/2023 Procedure: EXPLORATION PARAPHARYNGEAL SPACE; Surgeon: Daniel Domínguez M.D.; Location: [facility] OR OTHER SURGICAL HISTORY 1985 2014 carpal tunnel Eye lid reduction PAROTIDECTOMY Left 12/21/2023 Procedure: Partial PAROTIDECTOMY.; Surgeon: Daniel Domínguez M.D.; Location: [facility] OR SINUS SURGERY 02/2008 septoplasty THERAPEUTIC 1983 SOCIAL HISTORY: Social History Socioeconomic History Marital status: Spouse name: Not on file Number of children: Not on file Years of education: Not on file Highest education level: Some college, no degree Occupational History Not on file Tobacco Use Smoking status: Former Current packs/day: 0.00 Types: Cigarettes Quit date: 09/20/1991 Years since quittin.3 Smokeless tobacco: Not on file Vaping Use Vaping status: never used Substance and Sexual Activity Alcohol use: Yes Alcohol/week: 8.0 standard drinks of alcohol Types: 8 Glasses of wine per week Drug use: Never Sexual activity: Not Currently Partners: Male control/protection: Pill, Diaphragm, Post-menopausal Other Topics Concern Not on file Social History Narrative Not on file Social Determinants of Health Food Insecurity: No Food Insecurity (12/22/2023) Hunger Vital Sign Worried About Running Out of Food in the Last Year: Never true Ran Out of Food in the Last Year: Never true Transportation Needs: No Transportation Needs (12/22/2023) PRAPARE - Transportation Lack of Transportation (Medical): No Lack of Transportation (Non-Medical): No Physical Activity: Sufficiently Active (11/15/2023) Exercise Vital Sign Days of Exercise per Week: 4 days Minutes of Exercise per Session: 60 min Intimate Partner Violence: Not on file Housing Stability: Low Risk (12/22/2023) Housing Stability Housing: Living Situation: I have a steady place to live FAMILY HISTORY: Family History Problem Relation Name Age of Onset Coronary artery disease Mother Kenzie Felder 5 bypasses Stroke Mother Kenzie Felder Transient ischemic attack Mother Kenzie Felder Hypertension Mother Kenzie Felder Hyperlipidemia Mother Kenzie Felder Diabetes Mother Kenzie Felder Arthritis Mother Kenzie Felder Dementia Mother Kenzie Felder at 93 years Lung cancer Father Napoleon Felder Fibrosis also Leukemia Father's Brother Raz Felder Other cancer Brother Jarrett Felder PHYSICAL EXAM: General: The patient is awake, alert, and oriented. Appears to be in no acute distress. Face: House-Brackmann grade 2/ on surgical side with slight alisha weakness. Scleral injection Absent on surgical side. Neck: Supple. Trachea is midline. Parotid incision clean, dry and intact. No clinical hematoma or seroma observed. Chest/Pulmonary: Patient breathing comfortably on room air, no stridor or respiratory distress. DIAGNOSTICS: I reviewed the imaging studies and the interpretation as recorded. I reviewed the pertinent laboratory and diagnostic data. DIAGNOSIS/PLAN: Encounter Diagnoses Name Primary? Follow Up Examination Status Post Surgery Yes Mass Parotid Zaida Pastor is a 73 y.o. female who is doing well roughly 6 weeks from surgery. Her facial weakness has significantly improved. Her pain is well controlled. 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 We will have her follow up as needed. All questions were answered to the best of our abilities. PATIENT EDUCATION Ready to learn, no apparent learning barriers were identified; learning preferences include listening. Explained diagnosis and treatment plan; patient expressed understanding of the content. Associated attestation - Daniel Domínguez M.D. - 01/31/2024 8:54 AM CDT I saw and evaluated the patient, participating in the hughes portions of the service. I reviewed the resident/fellow???s note. I agree with the resident/fellow???s findings and plan. documented in this encounter Plan of Treatment Not on file documented as of this encounter Visit Diagnoses Diagnosis Follow Up Examination Status Post Surgery- Primary Mass Parotid documented in this encounter Care Teams Bridge Attacher Relationship Specialty Start Date End Date Elsewhere, Pcp PCP - General Internal Medicine 12/19/23 documented as of this encounter
--- OUTSIDE RECORDS SUMMARY | 2024-04-09 09:36 | XMS_ITS | Clinical Summary ---
Author Organization [facility] Address [place], [place] [address] Care Team Providers Care Post Office Clerk Name Role Phone Liss Madera MD Primary Care Provider [phone] Allergies No known active allergies Medications Medication [...] 06/04/2016 Overview: Monitored with MRI. Follows at [facility]. Last [facility] consult 02/2021 recommended CA19-9 level and then follow up MRI in 1 year (which is December 2021 as last MRI December 2020). Patient was instructed to contact [facility] regarding getting the CA19-9 level as medicare [...] 65+ Years) Preserv Free 07/07/2020 COVID-19 vaccine ([employer] 30mcg/0.3mL) PF, MDV 11/14/2020 Influenza, Inactivated [...] Outcome GA Total Labor Labor/2nd/3rd Weight Sex Type Anes PTL Mildred A1 A5 Name Clin AB Last Filed Vital Signs Vital Sign [...] 10/02/2018, Additional history exists COVID-19 vaccine series (2022- season) 2023 01/19/2022, 07/10/2021, 2020, Additional history [...] 2 SITES AXIAL Routine 08/28/2018 11:31 AM [facility] Menopause ANTI HCV Routine 08/16/2014 8:02 AM [facility] Need for hepatitis C screening test from [...] health care provider. XR MAMMO BILAT SCREENING [[id number]] CLINICAL HISTORY: ??This is an asymptomatic 70 y.o. patient. INDICATION FOR EXAM: Mammogram Screening. TECHNIQUE: CC & MLO views were obtained. ??This study was evaluated with the assistance of Computer-Aided Detection. COMPARISON FILM: Yes 05/16/20 [facility] 10/02/18 [facility] FINDINGS: ??The breasts are almost entirely fatty. There are no dominant masses, suspicious micro calcifications or areas of architectural distortion. Magalie Castro DO MAMMO * (ABNORMAL) LIPID PANEL W REFLEX MEASURED LDL (03/06/2021 9:05 AM CDT) CHOLESTEROL,TOTAL 131 100 - 199 mg/dL 03/06/2021 2:06 PM CDT [facility] TRIGLYCERIDES 181(H) <150 mg/dL 03/06/2021 2:06 PM CDT [facility] HDL CHOLESTEROL 34(L) >40 mg/dL 2:06 PM CDT [facility] NON-HDL CHOLESTEROL 97 <145 mg/dl 03/06/2021 2:06 PM CDT [facility] CHOL/HDL RATIO 3.85 <4.50 03/06/2021 2:06 PM CDT [facility] LDL CHOLESTEROL 61 <=130 mg/dL 03/06/2021 2:06 PM CDT [facility] VLDL CHOLESTEROL 36 mg/dL 03/06/20 2:06 PM CDT [facility] PROVIDER ORDERED STATUS RANDOM 03/06/2021 2:06 PM CDT [facility] Blood BLOOD SPECIMEN / Unknown Butterfly / Unknown 03/06/2021 9:05 AM CDT 03/06/2021 9:11 AM CDT Magalie Castro DO CHEMISTRY [facility] [address] [place] [address], [place] * COLONOSCOPY (06/26/2019 7:47 AM CDT) 06/26/2019 [...] adequate candidate for conscious sedation. The [id number] was passed through the anus and advanced [...] reponse to care. [facility] and nursing notes for moderate sedation details. Total physician intraservice time was 19 minutes. Vivek Laws MD 06/26/2019 8:53:14 AM This report has been signed electronically. Note Initiated On: 06/26/2019 7:47 AM Procedure Code(s): --- Professional --- 65211, Colonoscopy, flexible; with biopsy, single or multiple Diagnosis Code(s): --- Professional --- Z86.010, Personal history of colonicpolyps D12.2, Benign neoplasm of ascending colon K57.30, Diverticulosis of large intestine without perforation or abscess withoutbleeding CPT copyright 2018 [employer]. All rights reserved. The codes documented in this report are preliminary and upon evaporator operator molasses reviewmay be revised to meet current compliance requirements. Scope In: 8:11:20 AM Scope Withdrawal Time 0 hours 8 minutes 43 seconds Scope Out: 8:28:43 AM Vivek Laws MD PROCEDURE ORD * XR DXA BONE DENSITY 2 SITES AXIAL [90538.1] (08/28/2018 11:31 AM [facility]) Anatomical Region Laterality Modality Spine, HIPS, HIPL, HIPR Other Narrative 09/08/2018 8:04 AM [facility] Please see scanned document for results of this study. Magalie Castro DO DEXA * ANTI HCV (08/16/2014 8:02 AM [facility]) HEPATITIS C ANTIBODY Non-Reacti ve Non-Reacti ve 08/16/2014 1:15 PM [facility] Blood specimen (specimen) BLOOD SPECIMEN / Unknown Venipuncture / Unknown 08/16/2014 8:02 AM [facility] 08/16/2014 8:02 AM [facility] Narrative [facility] - 08/16/2014 1:15 PM [facility] Antibodies to HCV not detected; does not exclude the possibility of exposure to HCV. Sandi Mota TRIPE FINISHER SEND OUTS [facility] [address] [place] [address], [place] from Last 3 Months or Most Recently Relevant to Health Maintenance Care Teams Post Office Clerk Relationship Specialty Start Date End Date Liss Madera MD [address] [place] [address] (work) PCP - General Internal Medicine 05/04/22
--- NOTE | 2024-04-09 09:45 | CRLHL7_ITS ---
For Patients: As a result of the Century Cures Act, medical imaging exams and procedure reports are released immediately into your electronic medical record. You may view this report before your referring provider. If you have questions, please contact your health care provider. INDICATION: Back pain. COMPARISON: None. TECHNIQUE: Axial coronal and sagittal T1 and STIR bony pelvis. FINDINGS: Anatomic lumbosacral alignment. No fracture or bone lesion. Mild disc height loss in the visualized lumbar spine. Presacral space is clear. Forearm muscles are normal. Lumbosacral plexus and visualized sciatic nerves are normal with no impinging mass or fluid. Sacroiliac joints and symphysis pubis are normal. Mild osteoarthritis narrowing in both hips with marginal osteophytes. No mass, fluid or adenopathy in the pelvis or groin. Moderately loculated fluid at the cephalad margin of the right iliopsoas bursa in the pelvis and ventral acetabulum. Impression : 1. Somewhat unusual proximal loculated right iliopsoas bursitis. 2. See lumbar spine dictation for discussion of degenerative disc disease. 3. Mild osteoarthritis of both hips. Dictated by Cedric Camejo MD @ 04/10/2024 10:42:26 AM (Electronically Signed)
--- NOTE | 2024-04-09 10:30 | CRLHL7_ITS ---
For Patients: As a result of the Century Cures Act, medical imaging exams and procedure reports are released immediately into your electronic medical record. You may view this report before your referring provider. If you have questions, please contact your health care provider. Indication: Low back pain. Technique: Multisequence multiplanar MRI of the lumbar spine without the use of intravenous contrast. Comparison: None available. Findings: Grade 1 3 mm anterolisthesis of L4 on L5. Normal vertebral stature. Mild edema in the left L5 pedicle. No T1 hypointense infiltrative lesion. The conus medullaris terminates normally at the upper L2 level. The paraspinal soft tissues are unremarkable. T12-L1: Symmetric disc bulge. No significant spinal canal or neural foraminal stenosis. L1-L2: Symmetric disc bulge. No significant spinal canal or neural foraminal stenosis. L2-L3: Mild spinal canal stenosis resulting from symmetric disc bulging and facet joint hypertrophy. No significant neural foraminal narrowing. L3-L4: Mild spinal canal stenosis resulting from symmetric disc bulging and facet joint hypertrophy. Mild-moderate right and mild left neural foraminal narrowing. L4-L5: Moderate spinal canal stenosis as a result of facet joint hypertrophy with anterolisthesis and disc bulge/uncovering. Mild bilateral neural foraminal narrowing. L5-S1: Shallow symmetric disc bulge. Moderate facet joint hypertrophy. No significant spinal canal or neural foraminal stenosis. Impression: 1. Grade 1 anterolisthesis of L4 on L5. 2. Mild edema in the left L5 pedicle which is likely degenerative in etiology. 3. At L2-L3, mild spinal canal stenosis. 4. At L3-L4, mild spinal canal stenosis and mild-moderate right neural foraminal narrowing. 5. At L4-L5, moderate spinal canal stenosis and mild bilateral neural foraminal narrowing. Dictated by Damien Vogel MD @ 04/10/2024 8:36:17 AM (Electronically Signed)
== END 2024-04-09 09:31 | disposition home or self-care (01) ==
LOC: MRI 09:32
PROVIDERS: PCP Internal Medicine; Visit Provider Family Medicine
DX: M54.50 Low back pain, unspecified (principal); M16.0 Bilateral primary osteoarthritis of hip; M48.061 Spinal stenosis, lumbar region without neurogenic claudication; M54.9 Dorsalgia, unspecified; G89.29 Other chronic pain
CPT/HCPCS: 72148; 72195

== ENCOUNTER 2024-05-21 11:19 | Outpatient (CLI) | payer MEDICARE, SELFPAY ==
--- OUTSIDE RECORDS SUMMARY | 2024-05-21 11:21 | XMS_ITS ---
Author Organization [facility] Address [address] [place] [address] Care Team Providers Care Agricultural Research Technician Name Role Phone Unavailable Unavailable Unavailable Surgery Details Not on file Complications Check Surgery Details section. Procedure Estimated Blood Loss Check Surgery Details section. Procedure Findings Check Surgery Details section. Procedure Specimens Taken Check Surgery Details section.
--- OUTSIDE RECORDS SUMMARY | 2024-05-21 11:21 | XMS_ITS | Referral Summary ---
Author Organization [facility] Address [address] [place] [address] Care Team Providers Care Solution Design And Analysis Manager Name Role Phone Elsewhere, Pcp Primary Care Provider Unavailabl e Source Comments Patient records contain information from all sites at [facility]. For routine questions regarding patient records, call [phone] during business hours, M-F 8:00 AM - 5:00 PM Central Time. Record requests for emergency care only can be directed to [phone] at any time.[facility] Allergies No known active allergies Medications [...] 0.6 oz pur e alcohol) [facility] Utilities Answer Date Recorded In the past 12 months has th e electric, gas, oil, or water [employer] threatened to shut off services in your [...] often do you attend chur ch or islam services? Never 02/25/2021 Do you belong to [...] and heating? Not hard at all 02/25/2021 [facility] of Occupat ional Health - Occupational Stress [...] your living situation today? I have a [facility] place to live 12/22/2023 Education Answer Date Recorded What is the highest level of school you have completed or the highest degree you have received? Some college, no degree 02/25/2021 Sex and Gender Information Value Date Recorded Sex Assigned at Female 11/15/2023 8:06 PM AIRCRAFT INSTRUMENT TESTER Gender Identity Female 11/15/2023 8:06 PM AIRCRAFT INSTRUMENT TESTER Sexual Orientation Straight 11/15/2023 8: 06 PM AIRCRAFT INSTRUMENT TESTER Last Filed Vital Signs Vital Sign Reading [...] APRN, C.N.P., M.S.N. LAB BLO OD [facility] [address] [place] [address], [facility] [address] [place] [address] * Basic Metabolic Panel (12/20/2023 8:38 AM [...] APRN, C.N.P., M.S. LAB BLO OD [facility] [address] [place] [address], [facility] [address] [place] [address] from Last 3 Months or Most Recently Relevant to Health Maintenance Advance Directives For more information, please contact: [phone] * Full Code (Latest Code Status on File) Date Activated Date Inactivated Comments 12/21/2023 10:01 PM 12/22/2023 3:02 PM Question Answer Comments Full Code: Not Discussed Due to: Patient not available Care Teams Solution Design And Analysis Manager Relationship Specialty Start Date End Date Elsewhere, Pcp PCP - General Internal Medicine 12/19/23
--- OUTSIDE RECORDS SUMMARY | 2024-05-21 11:21 | XMS_ITS | Clinical Summary ---
Author Organization [facility] Address [place], [place] [address] Care Team Providers Care Cleaner Touch Up Worker Name Role Phone Liss Madera MD Primary Care Provider [phone] Allergies No known active allergies Medications Medication [...] without long-term current use of insulin 07/13/2018 Overview (10/31/2018): 07/07/18 diagnosed based on Fasting Glucose 129. A1C then 6.2. Obstructive sleep apnea 03/22/2017 Pancreatic cyst 06/04/2016 Overview (03/06/2021): Monitored with MRI. Follows at [facility]. Last [facility] consult 02/2021 recommended CA19-9 level and then follow up MRI in 1 year (which is December 2021 as last MRI December 2020). Patient was instructed to contact [facility] regarding getting the CA19-9 level as medicare would not let me order when I tried. TMJ (dislocation of temporomandibular joint) 02/2013 Personal history of colonic polyps 08/22/2012 Overview (06/28/2019): Colonoscopy 08/2012 polyp repeat in 5 years Colonoscopy 04/2014 diverticulosis repeat in 5 years Colonoscopy 06/2019 polyp, repeat in 5 years Mixed hyperlipidemia 08/13/2009 Right shoulder pain 08/05/2009 Thumb injury 05/05/2009 Pre-diabetes 09/25/2008 Unspecified essential hypertension 02/08/2008 Unspecified essential hypertension 07/05/2007 Unspecified hypothyroidism 07/05/2007 Enthesopathy of unspecified site 07/05/2007 Overview (07/05/2007): wrist Encounters Date Type Department Care Team Description 05/09/2024 10:40 AM CDT Office Visit [facility] [address] [place] [address] Cedric Fink MD Consult (Low back and right hip pain) 05/09/2024 Travel 05/06/2024 Travel 05/04/2024 Orders Only [facility] [address] [address] Vivek Laws MD <No scans attached> 04/09/2024 Orders Only [facility] Scanner 1 scan: (1-Ord) [facility], MR LUMBAR SPINE WO CON, 04/09/2024 04/09/2024 Orders Only [facility] Scanner 1 scan: (1-Ord) [facility], MR PELVIS WO CON, 04/09/2024 from Last 3 Months Immunizations Name Administration Dates Next Due Amb Influenza, Inactivated A IIV4 (Age 65+ Years) Preserv Free 07/07/2020 COVID-19 vaccine ([employer] 30mcg/0.3mL) PF, MDV 11/14/2020 Influenza, Inactivated AIIV4 [...] 10/27/1993 Smokeless Tobacco: Never Tobacco Cessation:Counseling Given: Not Answered Alcohol Use Standard Drinks/Week Comments Yes 0 (1 standard drink = 0.6 oz pur e alcohol) 5 times weekly PHQ-2 Answer Date Recorded PHQ-2 TOTAL SCORE 0 11/27/2020 Social Connections Answer Date Recorded Frequency of Communication with Friends and Fami ly Not on file 05/09/2024 Financial Resource Strain Answer Date R ecorded [...] Sign Reading Time Taken Comments Blood Pressure 122/76 05/09/2024 10:44 AM CDT Pulse 65 05/09/2024 10:44 AM CDT Temperature 37.1 ??C (98.7 ??F) 08/20/2019 1:48 PM CS T Respiratory Rate 20 03/22/2017 10:35 AM CDT Oxygen Saturation 97% 05/09/2024 10:44 AM CDT Inhaled Oxygen Concentration - - Weight 91.6 kg (202 lb) 05/09/2024 10:44 AM CDT Height 166 cm (5' 5.35) 05/13/2021 1:42 PM CDT Body Mass Index 33.26 05/13/2021 1:42 PM CDT Plan of Treatment Upcoming Encounters Date Type Department Care Team (Late st Contact Info) Description 05/23/2024 7:45 AM CDT Procedure Only [facility] [address] [place] [address] Cedric Fink MD [address] [place] [address] Health Maintenance Due Date Last Done Comments [...] 06/03/2022 06/03/20, 05/16/2020, 10/02/2018, Additional history exists Influenza for age 65+ [...] scan for age 65+ Completed 08/28/2018, 02/2013 COVID-19 vaccine series Completed 12/29/19 24, 07/07/2023, 07/06/2022, Additional history exists Procedures Procedure Name Priority Date/Time Associated Diagnosis Comments SCAN-MRI INTERPRETATION 04/09/2024 12:00 AM CDT SCAN-MRI INTERPRETATION 04/09/2024 12:00 AM CDT XR MAMMO BILAT SCREENING Routine 06/03/2021 1:30 PM CDT Visit for screening mammogram LIPID PANEL W REFLEX MEASURED LDL Routine 03/06/2021 9:05 AM CDT Hyperlipidemia, unspecified hyperlipidemia type COLONOSCOPY 06/26/2019 7:47 AM CDT XR DXA BONE DENSITY 2 SITES AXIAL Routine 08/28/2018 11:31 AM END STAPLER Menopause ANTI HCV Routine 08/16/2014 8:02 AM END STAPLER Need for hepatitis C screening test from Last 3 Months or Most Recently Relevant to Health Maintenance Results * SCAN-MRI INTERPRETATION (04/09/2024 12:00 AM CDT) Only the most recent of2 resultswithin the time period is included. Anatomical Region Laterality Modality Other Scanner OTHER * XR MAMMO BILAT SCREENING (06/03/2021 1:30 [...] health care provider. XR MAMMO BILAT SCREENING [[id number]] CLINICAL HISTORY: ??This is an asymptomatic 70 y.o. patient. INDICATION FOR EXAM: Mammogram Screening. TECHNIQUE: CC & MLO views were obtained. ??This study was evaluated with the assistance of Computer-Aided Detection. COMPARISON FILM: Yes 05/16/20 [facility] 10/02/18 [facility] FINDINGS: ??The breasts are almost entirely fatty. There are no dominant masses, suspicious micro calcifications or areas of architectural distortion. Magalie Castro DO MAMMO * (ABNORMAL) LIPID PANEL W REFLEX MEASURED LDL (03/06/2021 9:05 AM CDT) CHOLESTEROL,TOTAL 131 100 - 199 mg/dL 03/06/2021 2:06 PM CDT [facility] TRIGLYCERIDES 181(H) <150 mg/dL 03/06/2021 2:06 PM CDT [facility] HDL CHOLESTEROL 34(L) >40 mg/dL 2:06 PM CDT [facility] NON-HDL CHOLESTEROL 97 <145 mg/dl 03/06/2021 2:06 PM CDT [facility] CHOL/HDL RATIO 3.85 <4.50 03/06/2021 2:06 PM CDT [facility] LDL CHOLESTEROL 61 <=130 mg/dL 03/06/2021 2:06 PM CDT [facility] VLDL CHOLESTEROL 36 mg/dL 03/06/20 2:06 PM CDT [facility] PROVIDER ORDERED STATUS RANDOM 03/06/2021 2:06 PM CDT [facility] Blood BLOOD SPECIMEN / Unknown Butterfly / Unknown 03/06/2021 9:05 AM CDT 03/06/2021 9:11 AM CDT Magalie Castro DO [facility] [address] [place] [address], * COLONOSCOPY (06/26/2019 7:47 AM CDT) 06/26/2019 [...] adequate candidate for conscious sedation. The [id number] was passed through the anus and advanced [...] reponse to care. Please refer to the patien'ts medical record flowsheets and nursing notes for moderate sedation details. Total physician intraservice time was 19 minutes. Vivek Laws MD 06/26/2019 8:53:14 AM This report has been signed electronically. Note Initiated On: 06/26/2019 7:47 AM Procedure Code(s): --- Professional --- 73929, Colonoscopy, flexible; with biopsy, single or multiple Diagnosis Code(s): --- Professional --- Z86.010, Personal history of colonicpolyps D12.2, Benign neoplasm of ascending colon K57.30, Diverticulosis of large intestine without perforation or abscess withoutbleeding CPT copyright 2018 [employer]. All rights reserved. The codes documented in this report are preliminary and upon private equity analyst reviewmay be revised to meet current compliance requirements. Scope In: 8:11:20 AM Scope Withdrawal Time 0 hours 8 minutes 43 seconds Scope Out: 8:28:43 AM Vivek Laws MD PROCEDURE ORD * XR DXA BONE DENSITY 2 SITES AXIAL [[id number]] (08/28/2018 11:31 AM END STAPLER) Anatomical Region Laterality Modality Spine, HIPS, HIPL, HIPR Other Narrative 09/08/2018 8:04 AM END STAPLER Please see scanned document for results of this study. Magalie Castro DO DEXA * ANTI HCV (08/16/2014 8:02 AM END STAPLER) HEPATITIS C ANTIBODY Non-Reacti ve Non-Reacti ve 08/16/2014 1:15 PM END STAPLER [facility] Blood specimen (specimen) BLOOD SPECIMEN / Unknown Venipuncture / Unknown 08/16/2014 8:02 AM END STAPLER 08/16/2014 8:02 AM END STAPLER Narrative [facility] - 08/16/2014 1:15 PM END STAPLER Antibodies to HCV not detected; does not exclude the possibility of exposure to HCV. Sandi Mota SCRAP DROP OPERATOR SEND OUTS [facility] [address] [place] [address], from Last 3 Months or Most Recently Relevant to Health Maintenance Care Teams Cleaner Touch Up Worker Relationship Specialty Start Date End Date Liss Madera MD [address] [place] [address] PCP - General Internal Medicine 05/04/22
--- OUTSIDE RECORDS SUMMARY | 2024-05-21 11:21 | XMS_ITS | Clinical Summary ---
Author Organization [facility] Address [address] [place] [address] Care Team Providers Care Lube Man Name Role Phone Elsewhere, Pcp Primary Care Provider Unavailabl e Source Comments Patient records contain information from all sites at [facility]. For routine questions regarding patient records, call [phone] during business hours, M-F 8:00 AM - 5:00 PM Central Time. Record requests for emergency care only can be directed to [phone] at any time.[facility] Allergies No known active allergies Medications [...] 08/17/2013 Hypertension Essential Primary 07/05/2007 Hypothyroidism 07/05/2007 Family History Medical History Relation Name Comments Other cancer Brother Jarrett Felder Lung cancer Father Napoleon Felder Fibrosis also Leukemia Father's Brother Raz Felder Arthritis Mother Kenzie Emerita Coronary artery disease Mother Kenzie Emerita 5 bypasses Dementia Mother Kenzie Felder at [...] drink = 0.6 oz pur e alcohol) [facility] Utilities Answer Date Recorded In the [...] often do you attend chur ch or temple services? Never 02/25/2021 Do you belong to any clubs o r organizations such as bahai groups, unions, fraternal or athletic groups, or [...] and heating? Not hard at all 02/25/2021 [facility] of Occupat ional Health - Occupational Stress [...] your living situation today? I have a [facility] place to live 12/22/2023 Education Answer Date Recorded What is the highest level of school you have completed or the highest degree you have received? Some college, no degree 02/25/2021 Sex and Gender Information Value Date Recorded Sex Assigned at Female 11/15/2023 8:06 PM VOICE DATA COMMUNICATIONS ENGINEER Gender Identity Female 11/15/2023 8:06 PM VOICE DATA COMMUNICATIONS ENGINEER Sexual Orientation Straight 11/15/2023 8: 06 PM VOICE DATA COMMUNICATIONS ENGINEER Last Filed Vital Signs Vital Sign Reading [...] history exists Depression Screening (Annual PHQ-2) 09/12/2023 Influenza Vaccine (#1) 2024 , 07/06/2022, 06/03/2021, Additional history exists Hemoglobin A1C 06/20/2024 12/20/2023, 06/2 01/2021, 11/25/2020, Additional history exists Colonoscopy 06/26/2024 06/26/2019, 09/2013 (Performed elsewhere) Colorectal Cancer Surveillance 06/26/2024 Creatinine [...] 09/06/2017, 07/05/2007 Pneumococcal vaccine (65+ years) Completed 07/31/20, 07/25/2017 Zoster Vaccines Completed 09/02/2021, 03/2021, 08/24/2012 Fall Risk Screen (Annual) Completed 12/21/2023 COVID-19 Vaccine Completed 12/29/2023, , 07/06/2022, Additional history exists Procedures Procedure Name [...] APRN, C.N.P., M.S.N. LAB BLO OD ADD[facility] [address] [place] [address], [place] D[facility] [address] [place] [address] * Basic Metabolic Panel (12/20/2023 8:38 AM [...] APRN C.N.P., M.S. LAB BLO OD [facility] [address] [place] [address], [facility] [address] [place] [address] from Last 3 Months or Most Recently Relevant to Health Maintenance Advance Directives For more information, please contact: [phone] * Full Code (Latest Code Status on File) Date Activated Date Inactivated Comments 12/21/2023 10:01 PM 12/22/2023 3:02 PM Question Answer Comments Full Code: Not Discussed Due to: Patient not available Care Teams Lube Man Relationship Specialty Start Date End Date Elsewhere, Pcp PCP - General Internal Medicine 12/19/23
--- NOTE | 2024-05-21 11:30 | CRLHL7_ITS ---
For Patients: As a result of the Cures Act, medical imaging exams and procedure reports are released immediately into your electronic medical record. You may view this report before your referring provider. If you have questions, please contact your health care provider. BILATERAL SCREENING MAMMOGRAM WITH COMPUTER-AIDED DETECTION AND TOMOSYNTHESIS TECHNIQUE: CC and MLO views were obtained. These mammographic images have been obtained using full-field digital technique. These mammographic images were interpreted with the benefit of computer-aided detection. Breast Tomosynthesis was used in this interpretation. COMPARISON FILM: 08/16/22, 06/03/21, 05/16/20. FINDINGS: There are scattered areas of fibroglandular density IMPRESSION: There is no radiographic evidence for malignancy. ASSESSMENT: BI-RADS Category 1: Negative RECOMMENDATION: Routine screening mammogram in 1 year. A lay language report of this examination will be provided to the patient. Marcus Holland M.D. Diagnostic Radiologist [email or web address] JOSÉ [email or web address]/jorge Transcribed: 2:58 p.mMarcelino patel/Dictated by: Marcus Holland MD @ 05/22/2024 8:54:00 AM (Electronically Signed)
== END 2024-05-21 11:20 | disposition home or self-care (01) ==
LOC: MAMMO 11:19
PROVIDERS: PCP Internal Medicine; Visit Provider Internal Medicine
DX: Z12.31 Encounter for screening mammogram for malignant neoplasm of breast (principal)
CPT/HCPCS: 77063; 77067

== ENCOUNTER 2024-06-28 09:21 | Outpatient (CLI) | payer MEDICARE, SELFPAY ==
--- OUTSIDE RECORDS SUMMARY | 2024-07-02 02:12 | XMS_ITS | Clinical Summary ---
Author Organization [facility] Address [address] [place] [address] Care Team Providers Care Awning Craftsman Name Role Phone Elsewhere, Pcp Primary Care Provider Unavailabl e Source Comments Patient records contain information from all sites at [facility]. For routine questions regarding patient records, call [phone] during business hours, M-F 8:00 AM - 5:00 PM Central Time. Record requests for emergency care only can be directed to [phone] at any time.[facility] Allergies No known active allergies Medications atorvastatin (LIPITOR) 10 mg tablet Take 10 mg by mouth. 1 Active levothyroxine (SYNTHROID, LEVOTHROID) 125 mcg tablet Take 1 tablet by mouth every morning. 6 Active lisinopril-hydr oCHLOROthiazide (PRINZIDE,ZESTO RETIC) 10-12.5 mg per tablet Take 1 tablet by mouth. 6 Active FISH OIL-DHA-EPA ORAL Take 1 capsule by mouth every morning. 6 Active multivitamin tablet Take 1 tablet by mouth every morning. [address] Active [address] tablet Take 81 mg by mouth. 9 Active magnesium 250 mg tablet Take 250 mg by mouth. 9 Active cholecalciferol (VITAMIN D3) 25 mcg (1,000 Unit) capsule Take 1 capsule by mouth. 0 Active loratadine (CLARITIN) 10 mg tablet Take 1 tablet by mouth every evening. 6 Active glucosamine sulfate (GLUCOSAMINE) 500 mg capsule Take 500 mg by mouth 3 (three) times a day. Active co-enzyme Q-10 (CO Q-10) 100 mg capsule Take 1 capsule by mouth daily. 3 Active oxyCODONE (ROXICODONE) 5 mg immediate release tabletIndicatio ns:Acute Pain Take 1 tablet (5 mg total) by mouth every 4 (four) hours as needed for pain Indication: Acute Pain. 12 tablet 12/22/2023 12:55 PM CDT 4 Active sennosides-docu sate sodium (Senna with Docusate Sodium) 8.6-50 mg per tablet Take 1 tablet by mouth 2 (two) times a day. 4 Active acetaminophen (TYLENOL) 500 mg tablet Take 2 tablets (1,000 mg total) by mouth every 6 (six) hours as needed for pain. 4 Active carboxymethylce llulose (REFRESH PLUS) 0.5 % ophthalmic solution Administer 1 drop into the left eye every 10 (ten) minutes as needed for dry eyes. 4 Active ibuprofen (ADVIL,MOTRIN) 200 mg tablet Take 3 tablets (600 mg total) by mouth every 8 (eight) hours as needed for pain. Take with food. 4 Active Active Problems Problem Noted Date Diagnosed [...] Felder Fibrosis also Leukemia Father's Brother Raz Emerita Arthritis Mother Kenzie Felder Coronary artery disease [...] 0.6 oz pur e alcohol) [facility] Utilities Answer Date Recorded In the past 12 months has e [employer], gas, oil, or water [employer] threatened to shut off services in your [...] often do you attend chur ch or congregational services? Never 02/25/2021 Do you belong to any clubs o r organizations such as congregation groups, unions, fraternal or athletic groups, or [...] and heating? Not hard at all 02/25/2021 [place] of Occupat ional [facility] - Occupational Stress Questionnaire Answer Date Recorded [...] your living situation today? I have a [facility] place to live 12/22/2023 Education Answer Date Recorded What is the highest level of school you have completed or the highest degree you have received? 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 Legal Sex Female 9:22 AM BICYCLE DESIGNER Gender Identity Female 11/15/2023 8:06 PM BICYCLE DESIGNER Sexual Orientation Straight 11/15/2023 8: 06 PM BICYCLE DESIGNER Last Filed Vital Signs Vital Sign Reading [...] Depression Screening (Annual PHQ-2) 09/12/2023 COVID-19 Vaccine (2 5 season) 2024 12/29/2023, 07/07/2023, 07/06/2022, Additional history exists Influenza Vaccine (#1) 2024 , 07/06/2022, 06/03/2021, Additional history exists Hemoglobin A1C 06/20/2024 12/20/2023, 02/11, 11/25/2020, Additional history exists Colonoscopy 06/26/2024 06/26/2019, 12/09/2013 (Performed elsewhere) Colorectal [...] CDT Lizabeth Gillette APRN, C.N.P., M.S.N. LAB BLOOD ADD-O N Final Result Performing Organization Address City/[facility]/ZIP Co de Phone Number [facility] [address] [place] [address], [facility] DTL [facility] [address] [place] [address] * Basic Metabolic Panel (12/20/2023 8:38 AM CDT) Pathologist [facility] [place] Potassium, S 3.9 3.6 - 5.2 mmol/L [...] 8:38 AM CDT 12/20/2023 9:25 AM CDT Lolita Ayoub APRNNMarcelinoP., M.S. LAB BLOOD ADD-O N Final Result Performing Organization Address City/[facility]/ZIP Co de Phone Number [facility] [address] [place] [address], [facility] DTL [facility] [address] [place] [address] from Last 3 Months or Most Recently Relevant to Health Maintenance Insurance [employer] Advance Directives For more information, please contact: [phone] * Full Code (Latest Code Status on File) Date Activated Date Inactivated Comments 12/21/2023 10:01 PM 12/22/2023 3:02 PM Question Answer Comments Full Code: Not Discussed Due to: Patient not available Care Teams Awning Craftsman Relationship Specialty Start Date End Date Elsewhere, Pcp PCP - General Internal Medicine 12/19/23
--- OUTSIDE RECORDS SUMMARY | 2024-07-02 02:13 | XMS_ITS ---
Author Organization [facility] Address [address] [place] [address] Care Team Providers Care Customer Solutions Teammate Name Role Phone Unavailable Unavailable Unavailable Surgery Details Not on file Complications Check Surgery Details section. Procedure Estimated Blood Loss Check Surgery Details section. Procedure Findings Check Surgery Details section. Procedure Specimens Taken Check Surgery Details section.
--- OUTSIDE RECORDS SUMMARY | 2024-07-02 02:13 | XMS_ITS | Clinical Summary ---
Author Organization [facility] Address [place], [place] [address] Care Team Providers Care Business Performance Specialist Name Role Phone Lsis Madera MD Primary Care Provider [phone] Allergies No known active allergies Medications Medication [...] Overview (03/06/2021): Monitored with MRI. Follows at [facility]. Last [facility] consult 02/2021 recommended CA19-9 level and then follow up MRI in 1 year (which is December 2021 as last MRI December 2020). Patient was instructed to contact [facility] regarding getting the CA19-9 level as medicare [...] Encounters Date Type Department Care Team Description 05/23/2024 7:45 AM CDT Procedure Only [facility] [address] [place] [address] Cedric Fink MD Procedure (Ultrasound guided injection rig... 05/22/2024 Travel 05/09/2024 10:40 AM CDT Office Visit [facility] [address] [place] [place] [address] Cedric Fink MD Consult (Low back and right hip pain) 05/09/2024 Travel 05/06/2024 Travel 05/04/2024 Orders Only [facility] [address] [place] [address] Vivek Laws MD <No scans attached> 04/09/2024 Orders Only [facility] Scanner 1 scan: (1-Ord) [facility], MR LUMBAR SPINE WO CON, 04/09/2024 04/09/2024 Orders Only [facility] Scanner 1 scan: (1-Ord) [facility], MR PELVIS WO CON, 04/09/2024 from Last 3 Months Immunizations Name Administration Dates Next Due Amb Influenza, Inactivated A IIV4 (Age 65+ Years) Preserv Free 07/07/2020 COVID-19 vaccine ([employer] 30mcg/0.3mL) MD LALYV 11/14/2020 Influenza, Inactivated AIIV4 (Age 65+ Years) [...] Sign Reading Time Taken Comments Blood Pressure 136/81 05/23/2024 7:47 AM CDT Pulse 62 05/23/2024 7:47 AM CDT Temperature 36.8 ??C (98.2 ??F) 05/23/2024 7:47 AM CD T Respiratory Rate 20 03/22/2017 10:35 AM CDT Oxygen Saturation 97% 05/23/2024 7:47 AM CDT Inhaled Oxygen Concentration - - Weight 91.6 kg (202 lb) 05/09/2024 10:44 AM CDT Height 166 cm (5' 5.35) 05/13/2021 1:42 PM CDT Body Mass Index 33.26 05/13/2021 1:42 PM CDT Plan of Treatment Upcoming Encounters Date Type Department Care Team (Late st Contact Info) Description 07/12/2024 11:00 AM CDT Office Visit [facility] [address] [place] [address] Cedric Fink MD [address] [place] [address] Health Maintenance Due Date Last Done Comments [...] 10/02/2018, Additional history exists COVID-19 vaccine series (2023- season) 2024 12/29/2023, 07/07/2023, 07/06/2022, Additional history exists Influenza for age 65+ [...] Procedure Name Priority Date/Time Associated Diagnosis Comments BEDSIDE US STUDY ARCHIVE Routine 05/23/2024 11:11 AM CDT Iliopsoas bursitis of right hip Trochanteric bursitis of right hip SCAN-MRI INTERPRETATION 04/09/2024 12:00 AM CDT SCAN-MRI INTERPRETATION 04/09/2024 12:00 AM CDT XR MAMMO BILAT SCREENING Routine 06/03/2021 1:30 PM CDT Visit for screening mammogram LIPID PANEL W REFLEX MEASURED LDL Routine 03/06/2021 9:05 AM CDT Hyperlipidemia, unspecified hyperlipidemia type COLONOSCOPY 06/26/2019 7:47 AM CDT XR DXA BONE DENSITY 2 SITES AXIAL Routine 08/28/2018 11:31 AM RN SURGICAL PCU Menopause ANTI HCV Routine 08/16/2014 8:02 AM RN SURGICAL PCU Need for hepatitis C screening test from Last 3 Months or Most Recently Relevant to Health Maintenance Results * BEDSIDE US STUDY ARCHIVE (05/23/2024 11:11 AM CDT) Narrative Ella Barbosa - 05/23/2024 11:11 AM CDT The patient was seen for ultrasound guided injection by Dr. Cedric Fink. Ultrasound was not used for diagnostic purposes, but to guide the needle placement and document the position of the injection. ?? See patient's EPIC encounter for the detail of the procedure; see SKYLAR for saved images of the injection. Cedric Fink MD PROCEDURE ORD * SCAN-MRI INTERPRETATION (04/09/2024 12:00 AM CDT) [...] For Patients: As a result of the Cures Act, medical imaging exams and procedure reports are released immediately into your electronic medical record. You may view this report before your referring provider. If you have questions, please contact your health care provider. XR MAMMO BILAT SCREENING [[id number]] CLINICAL HISTORY: ??This is an asymptomatic 70 y.o. patient. INDICATION FOR EXAM: Mammogram Screening. TECHNIQUE: CC & MLO views were obtained. ??This study was evaluated with the assistance of Computer-Aided Detection. COMPARISON FILM: Yes 05/16/20 50 [facility] 10/02/18 [facility] [employer] FINDINGS: ??The breasts are almost entirely fatty. There are no dominant masses, suspicious micro calcifications or areas of architectural distortion. Magalie Castro DO MAMMO * (ABNORMAL) LIPID PANEL W REFLEX MEASURED LDL (03/06/2021 9:05 AM CDT) CHOLESTEROL,TOTAL 131 100 - 199 mg/dL 03/06/2021 2:06 PM CDT [facility] TRAL LABORATORY TRIGLYCERIDES 181(H) <150 mg/dL 03/06/2021 2:06 PM CDT [facility] TRAL LABOR[facility]ORY HDL CHOLESTEROL 34(L) >40 mg/dL 2:06 PM CDT [facility] TR[facility] LABOR[facility]ORY NON-HDL CHOLESTEROL 97 <145 mg/dl 03/06/2021 2:06 PM CDT [facility] TR[facility] LAB[facility]ORY CHOL/HDL RATIO 3.85 <4.50 03/06/2021 2:06 PM CDT [facility] TR[facility] LAB[facility] LDL CHOLESTEROL 61 <=130 mg/dL 03/06/2021 2:06 PM CDT [facility] TRAL LAB[facility] VLDL CHOLESTEROL 36 mg/dL 03/06/20 2:06 PM CDT [facility] TRAL LABORATORY PROVIDER ORDERED STATUS RANDOM 03/06/2021 2:06 PM CDT [facility] Blood BLOOD SPECIMEN / Unknown Butterfly / Unknown 03/06/2021 9:05 AM CDT 03/06/2021 9:11 AM CDT Magalie Ann Matthew DARLING CHEMISTRY [facility] [address] [place] [address], * COLONOSCOPY (06/26/2019 7:47 AM CDT) 06/26/2019 [...] adequate candidate for conscious sedation. The [id number] was passed through the anus and advanced [...] reponse to care. [facility] flow[facility] and nursing notes for moderate sedation details. Total physician intraservice time was 19 minutes. Vivek Laws MD 06/26/2019 8:53:14 AM This report has been signed electronically. Note Initiated On: 06/26/2019 7:47 AM Procedure Code(s): --- Professional --- 18682, Colonoscopy, flexible; with biopsy, single or multiple Diagnosis Code(s): --- Professional --- Z86.010, Personal history of colonicpolyps D12.2, Benign neoplasm of ascending colon K57.30, Diverticulosis of large intestine without perforation or abscess withoutbleeding CPT copyright 2018 [employer]. All rights reserved. The codes documented in this report are preliminary and upon detail technician reviewmay be revised to meet current compliance requirements. Scope In: 8:11:20 AM Scope Withdrawal Time 0 hours 8 minutes 43 seconds Scope Out: 8:28:43 AM Vivek Laws MD PROCEDURE ORD * XR DXA BONE DENSITY 2 SITES AXIAL [20869.1] (08/28/2018 11:31 AM RN SURGICAL PCU) Anatomical Region Laterality Modality Spine, HIPS, HIPL, HIPR Other Narrative 09/08/2018 8:04 AM RN SURGICAL PCU Please see scanned document for results of this study. Magalie Castro DO DEXA * ANTI HCV (08/16/2014 8:02 AM RN SURGICAL PCU) HEPATITIS C ANTIBODY Non-Reacti ve Non-Reacti ve 08/16/2014 1:15 PM RN SURGICAL PCU [facility] [employer] LABORATORY-[facility] TRAL LABORATORY Blood specimen (specimen) BLOOD SPECIMEN / Unknown Venipuncture / Unknown 08/16/2014 8:02 AM RN SURGICAL PCU 08/16/2014 8:02 AM RN SURGICAL PCU Narrative [facility]AL LAB[facility]ATORY - 08/16/2014 1:15 PM RN SURGICAL PCU Antibodies to HCV not detected; does not exclude the possibility of exposure to HCV. Sandi Mota NP SEND OUTS [facility] [address] [place] [address], [place] from Last 3 Months or Most Recently Relevant to Health Maintenance Care Teams Business Performance Specialist Relationship Specialty Start Date End Date Liss Madera MD [address] [place] [address] PCP - General Internal Medicine 05/04/22
--- OUTSIDE RECORDS SUMMARY | 2024-07-02 02:13 | XMS_ITS | Referral Summary ---
Author Organization [facility] Address [address] [place] [address] Care Team Providers Care Application Project Leader Name Role Phone Elsewhere, Pcp Primary Care Provider Unavailabl e Source Comments Patient records contain information from all sites at [facility]. For routine questions regarding patient records, call [phone] during business hours, M-F 8:00 AM - 5:00 PM Central Time. Record requests for emergency care only can be directed to [phone] at any time.[facility] Allergies No known active allergies Medications atorvastatin [...] drink = 0.6 oz pur e alcohol) [facility] Utilities Answer Date Recorded In the past [...] often do you attend chur ch or jewish services? Never 02/25/2021 Do you belong to any clubs o r organizations such as holiness groups, unions, fraternal or athletic groups, or [...] your living situation today? I have a [facility] place to live 12/22/2023 Education Answer Date Recorded What is the highest level of school you have completed or the highest degree you have received? 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 LAB BLOOD ADD-O N Final Result [facility] [address] [place] [address], [facility] DTL [facility] [address] [place] [address] * Basic Metabolic Panel (12/20/2023 8:38 AM [...] CDT Lai Gallego APRN, C.N.P., M.S. LAB BLOOD ADD-O N Final Result [facility] [address] [place] [address], [facility] [address] [place] [address] from Last 3 Months or Most Recently Relevant to Health Maintenance Insurance [facility] Advance Directives For more information, please contact: [phone] * Full Code (Latest Code Status on File) Date Activated Date Inactivated Comments 12/21/2023 10:01 PM 12/22/2023 3:02 PM Question Answer Comments Full Code: Not Discussed Due to: Patient not available Care Teams Application Project Leader Relationship Specialty Start Date End Date Elsewhere, Pcp PCP - General Internal Medicine 12/19/23
== END 2024-06-28 09:22 | disposition home or self-care (01) ==
LOC: NFLDREF 07-02 02:11
PROVIDERS: PCP Internal Medicine; Referring Provider Internal Medicine; Visit Provider Internal Medicine
DX: E03.9 Hypothyroidism, unspecified (principal); I10 Essential (primary) hypertension; E11.9 Type 2 diabetes mellitus without complications; R74.01 Elevation of levels of liver transaminase levels; E78.5 Hyperlipidemia, unspecified
CPT/HCPCS: 80053; 80061; 84443

== ENCOUNTER 2024-07-05 07:59 | Outpatient (CLI) | payer MEDICARE, SELFPAY ==
--- OUTSIDE RECORDS SUMMARY | 2024-07-05 08:01 | XMS_ITS | Clinical Summary ---
Author Organization [facility] Address [address] [place] [address] Care Team Providers Care Airline Customer Service Agent Name Role Phone Elsewhere, Pcp Primary Care Provider Unavailabl e Source Comments Patient records contain information from all sites at [facility]. For routine questions regarding patient records, call [phone] during business hours, M-F 8:00 AM - 5:00 PM Central Time. Record requests for emergency care only can be directed to [phone] at any time.[facility] Allergies No known active allergies Medications atorvastatin [...] drink = 0.6 oz pur e alcohol) [facility] Utilities Answer Date Recorded In the past 12 months has e [employer], gas, oil, or water [employer] threatened to shut off services in your [...] often do you attend chur ch or rastafari services? Never 02/25/2021 Do you belong to any clubs o r organizations such as pentecostal groups, unions, fraternal or athletic groups, or [...] and heating? Not hard at all 02/25/2021 [place] of Occupat ional [facility] - Occupational Stress Questionnaire Answer Date [...] your living situation today? I have a [facility] place to live 12/22/2023 Education Answer Date Recorded What is the highest level of school you have completed or the highest degree you have received? Some college, no degree 02/25/2021 Comments No Sex and Gender Information Value Date Recorded Sex Assigned at Female 11/15/2023 8:06 PM PORCELAIN ENAMEL SPRAYER Legal Sex Female 9:22 AM PORCELAIN ENAMEL SPRAYER Gender Identity Female 11/15/2023 8:06 PM PORCELAIN ENAMEL SPRAYER Sexual Orientation Straight 11/15/2023 8: 06 PM PORCELAIN ENAMEL SPRAYER Last Filed Vital Signs Vital Sign Reading [...] ADD-O N Final Result Performing Organization Address City/[facility]/ZIP Co de Phone Number [facility] [address] [place] [address], [facility] DTL [facility] [address] [place] [address] * Basic Metabolic Panel (12/20/2023 8:38 AM CDT) Pathologist [facility] Potassium, S 3.9 3.6 - 5.2 [...] ADD-O N Final Result Performing Organization Address City/[facility]/ZIP Co de Phone Number [facility] [address] [place] [address], [facility] DTL [facility] [address] [place] [address] from Last 3 Months or Most Recently Relevant to Health Maintenance Insurance [employer] Advance Directives For more information, please contact: [phone] * Full Code (Latest Code Status on File) Date Activated Date Inactivated Comments 12/21/2023 10:01 PM 12/22/2023 3:02 PM Question Answer Comments Full Code: Not Discussed Due to: Patient not available Care Teams Airline Customer Service Agent Relationship Specialty Start Date End Date Elsewhere, Pcp PCP - General Internal Medicine 12/19/23
--- OUTSIDE RECORDS SUMMARY | 2024-07-05 08:01 | XMS_ITS ---
Author Organization [facility] Address [address] [place] [address] Care Team Providers Care Community Service Director Name Role Phone Unavailable Unavailable Unavailable Surgery Details Not on file Complications Check Surgery Details section. Procedure Estimated Blood Loss Check Surgery Details section. Procedure Findings Check Surgery Details section. Procedure Specimens Taken Check Surgery Details section.
--- OUTSIDE RECORDS SUMMARY | 2024-07-05 08:01 | XMS_ITS | Referral Summary ---
Author Organization [facility] Address [address] [place] [address] Care Team Providers Care Quill Machine Operator Name Role Phone Elsewhere, Pcp Primary Care Provider Unavailabl e Source Comments Patient records contain information from all sites at [facility]. For routine questions regarding patient records, call [phone] during business hours, M-F 8:00 AM - 5:00 PM Central Time. Record requests for emergency care only can be directed to [phone] at any time.[facility] Allergies No known active allergies Medications [...] drink = 0.6 oz pur e alcohol) [facility] Utilities Answer Date Recorded In [...] and heating? Not hard at all 02/25/2021 [facility] Occupat ional Health - Occupational [...] your living situation today? I have a [facility] place to live 12/22/2023 Education Answer Date Recorded What is the highest level of school you have completed or the highest degree you have received? Some college, no degree 02/25/2021 Comments No Sex and Gender Information Value Date Recorded Sex Assigned at Female 11/15/2023 8:06 PM POULTICE MACHINE OPERATOR Legal Sex Female 9:22 AM POULTICE MACHINE OPERATOR Gender Identity Female 11/15/2023 8:06 PM POULTICE MACHINE OPERATOR Sexual Orientation Straight 11/15/2023 8: 06 PM POULTICE MACHINE OPERATOR Last Filed Vital Signs Vital Sign Reading [...] M.S.N. LAB BLOOD ADD-O N Final Result [facility] [address] [place] [address], [facility] DTL [facility] [address] [place] [address] * Basic Metabolic Panel (12/20/2023 8:38 AM [...] M.S. LAB BLOOD ADD-O N Final Result [facility] [address] [place] [address], [facility] [address] [place] [address] from Last 3 Months or Most Recently Relevant to Health Maintenance Insurance [facility] Advance Directives For more information, please contact: [phone] * Full Code (Latest Code Status on File) Date Activated Date Inactivated Comments 12/21/2023 10:01 PM 12/22/2023 3:02 PM Question Answer Comments Full Code: Not Discussed Due to: Patient not available Care Teams Quill Machine Operator Relationship Specialty Start Date End Date Elsewhere, Pcp PCP - General Internal Medicine 12/19/23
--- OUTSIDE RECORDS SUMMARY | 2024-07-05 08:02 | XMS_ITS | Clinical Summary ---
Author Organization [employer] [facility] Address [place], [place] [address] Care Team Providers Care Math And Sciences Department Chair Name Role Phone Liss Madera MD Primary Care Provider [phone]- [phone] Allergies No known active allergies Medications Medication [...] Overview (03/06/2021): Monitored with MRI. Follows at [facility] [place]. Last [facility] consult 02/2021 recommended CA19-9 level and then follow up MRI in 1 year (which is December 2021 as last MRI December 2020). Patient was instructed to contact [facility] [place] regarding getting the CA19-9 level as medicare [...] Description 05/23/2024 7:45 AM CDT Procedure Only [facility] [address] [facility] [place] [address] Cedric Fink MD Procedure (Ultrasound guided injection rig... 05/22/2024 Travel 05/09/2024 10:40 AM CDT Office Visit [facility] [address] [facility] [place] [address] Cedric Fink MD Consult (Low back and right hip pain) 05/09/2024 Travel 05/06/2024 Travel 05/04/2024 Orders Only [facility] [address] [facility] [place] [address] Vivek Laws MD <No scans attached> 04/09/2024 Orders Only [facility] Scanner 1 scan: (1-Ord) [facility], MR LUMBAR SPINE WO CON, 04/09/2024 04/09/2024 Orders Only [facility] Scanner 1 scan: (1-Ord) [facility], MR PELVIS WO CON, 04/09/2024 from Last 3 Months Immunizations Name Administration Dates Next Due Amb Influenza, Inactivated A IIV4 (Age 65+ Years) Preserv Free 07/07/2020 COVID-19 vaccine (Present [employer] 30mcg/0.3mL) MD LALYV 11/14/2020 Influenza, Inactivated AIIV4 [...] Description 07/12/2024 11:00 AM CDT Office Visit [facility] [address] [place] [address] Cedric Fink MD [address] [place] [address] Health Maintenance Due Date Last Done Comments [...] 2 SITES AXIAL Routine 08/28/2018 11:31 AM HEAD SHIPPER Menopause ANTI HCV Routine 08/16/2014 8:02 AM HEAD SHIPPER Need for hepatitis C screening test from [...] health care provider. XR MAMMO BILAT SCREENING [[id number]] CLINICAL HISTORY: ??This is an asymptomatic 70 y.o. patient. INDICATION FOR EXAM: Mammogram Screening. TECHNIQUE: CC & MLO views were obtained. ??This study was evaluated with the assistance of Computer-Aided Detection. COMPARISON FILM: Yes 05/16/20 [employer] [facility] 10/02/18 [facility] happin! FINDINGS: ??The breasts are almost entirely fatty. There are no dominant masses, suspicious micro calcifications or areas of architectural distortion. Magalie Castro DO MAMMO * (ABNORMAL) LIPID PANEL W REFLEX MEASURED LDL (03/06/2021 9:05 AM CDT) CHOLESTEROL,TOTAL 131 100 - 199 mg/dL 03/06/2021 2:06 PM CDT [facility] TRIGLYCERIDES 181(H) <150 mg/dL 03/06/2021 2:06 PM CDT [facility] HDL CHOLESTEROL 34(L) >40 mg/dL 2:06 PM CDT [facility] NON-HDL CHOLESTEROL 97 <145 mg/dl 03/06/2021 2:06 PM CDT [facility] CHOL/HDL RATIO 3.85 <4.50 03/06/2021 2:06 PM CDT [facility] LDL CHOLESTEROL 61 <=130 mg/dL 03/06/2021 2:06 PM CDT [facility] VLDL CHOLESTEROL 36 mg/dL 03/06/20 2:06 PM CDT [facility] PROVIDER ORDERED STATUS RANDOM 03/06/2021 2:06 PM CDT [facility] Blood BLOOD SPECIMEN / Unknown Butterfly / Unknown 03/06/2021 9:05 AM CDT 03/06/2021 9:11 AM CDT Magalie Ann Matthew DARLING CHEMISTRY [facility] [address] [place] [address], * COLONOSCOPY (06/26/2019 7:47 AM CDT) 06/26/2019 [...] adequate candidate for conscious sedation. The [id number] was passed through the anus and advanced [...] reponse to care. [facility] and nursing notes for moderate sedation details. Total physician intraservice time was 19 minutes. Vivek Laws MD 06/26/2019 8:53:14 AM This report has been signed electronically. Note Initiated On: 06/26/2019 7:47 AM Procedure Code(s): --- Professional --- 07988, Colonoscopy, flexible; with biopsy, single or multiple Diagnosis Code(s): --- Professional --- Z86.010, Personal history of colonicpolyps D12.2, Benign neoplasm of ascending colon K57.30, Diverticulosis of large intestine without perforation or abscess withoutbleeding CPT copyright 2018 [employer]. All rights reserved. The codes documented in this report are preliminary and upon welder metal fab reviewmay be revised to meet current compliance requirements. Scope In: 8:11:20 AM Scope Withdrawal Time 0 hours 8 minutes 43 seconds Scope Out: 8:28:43 AM Vivek Laws MD PROCEDURE ORD * XR DXA BONE DENSITY 2 SITES AXIAL [33729.1] (08/28/2018 11:31 AM HEAD SHIPPER) Anatomical Region Laterality Modality Spine, HIPS, HIPL, HIPR Other Narrative 09/08/2018 8:04 AM HEAD SHIPPER Please see scanned document for results of this study. Magalie Castro DO DEXA * ANTI HCV (08/16/2014 8:02 AM HEAD SHIPPER) HEPATITIS C ANTIBODY Non-Reacti ve Non-Reacti ve 08/16/2014 1:15 PM HEAD SHIPPER [facility] TRAL [facility] Blood specimen (specimen) BLOOD SPECIMEN / Unknown Venipuncture / Unknown 08/16/2014 8:02 AM HEAD SHIPPER 08/16/2014 8:02 AM HEAD SHIPPER Narrative [facility] - 08/16/2014 1:15 PM HEAD SHIPPER Antibodies to HCV not detected; does not exclude the possibility of exposure to HCV. Sandi Mota NP [facility] [address] [place] [address], [place] from Last 3 Months or Most Recently Relevant to Health Maintenance Care Teams Math And Sciences Department Chair Relationship Specialty Start Date End Date Liss Madera MD [address] [place] [address] PCP - General Internal Medicine 05/04/22
--- NOTE | 2024-07-05 09:20 | W.ANESCHARGE ---
Anesthesia Charges Start Date/Time Anesthesia Start Date: 07/05/24 Anesthesia Start Time: 08:40 Stop Date/Time Anesthesia Stop Date: 07/05/24 Anesthesia Stop Time: 09:19
--- NOTE | 2024-07-05 09:31 | W.ANESCHARGE ---
Anesthesia Charges Start Date/Time Anesthesia Start Date: 07/05/24 Anesthesia Start Time: 08:40 Stop Date/Time Anesthesia Stop Date: 07/05/24 Anesthesia Stop Time: 09:19 Summary Extremes of Age - Over 70 or under 1: MDA
== END 2024-07-05 08:00 | disposition home or self-care (01) ==
LOC: OP CLINIC 07:59
PROVIDERS: PCP Internal Medicine; Visit Provider Surgery
DX: Z12.11 Encounter for screening for malignant neoplasm of colon (principal); D12.5 Benign neoplasm of sigmoid colon; K57.30 Diverticulosis of large intestine without perforation or abscess without bleeding; K64.4 Residual hemorrhoidal skin tags; Z86.0100 Personal history of colon polyps, unspecified
CPT/HCPCS: 00811; 45385; 88305; 99100; J2704

== ENCOUNTER 2024-07-19 10:00 | Outpatient (RCR) | payer MEDICARE, SELFPAY ==
--- NOTE | 2024-04-19 13:54 | PT.OPEX ---
PT [place] Outpatient Eval PT [facility] Outpatient Eval Start: 04/16/24 14:38 Freq: Status: Active Protocol: Document 04/19/24 08:22 MLS (Rec: 04/19/24 13:53 MLS [id number]) E-signed By Keesha Acosta DPT Physical Therapy Outpatient Evaluation Insurance Information Recert Due Date 07/17/24 Insurance Name Medicare B,[place] Medical Diagnosis M54.50 LBP G89.29 other chronic pain Treating Diagnosis LBP - right sided right hip pain Imaging Report Information Per patient, L4-5 spondylolisthesis, some degenerative change, and a normal right hip x-ray. Referring MD Dr. Lerner Subjective Subjective Patient is a 73 year old female who presents to physical therapy with signs and symptoms consistent with low back pain. She states that the pain started years ago. She did PT for her IT band in October. She reports that her IT-band feels a little better. She states that she has a lot of right hip pain, gluteal pain and into her groin. She states that she just had a MRI, which showed bursitis on the top of her hip. She also has some arthritis in her low back. She is scheduled to get an injection with Dr. Fink in 6 weeks because that was the soonest available. No complaints of numbness or tingling into her right leg. She goes to the chiropractor weekly/biweekly and gets acupuncture once a month. Aggravating factors include: standing, walking, exercising and ADLs. Alleviating factors include: chiropractor, Aspercream, lidocaine patch, Tylenol, and ice. Significant past medical history includes diabetes, hypertension and arthritis. Patient would like to be able to do her normal daily activities, ride her E- bike and walk her dog without pain through physical therapy sessions. Pain Comments Today: 2/10 on a 0-10 pain scale with 10 = extreme pain At its worst: 8/10 At its best: 2/10 Current Work Status Retired Objective Other/Pertinent Objective Gait: Ambulates with single point cane today Posture Assessment: Decreased lordosis LUMBAR ROM Flexion: to floor no pain Extension: moderately decreased with pain Right Sidebend: top of thigh with pain Left Sidebend: to knee no pain LE MMT Hip flexion: R 4/5 L 4/5 Hip Extension: R 4/5 L 4/5 Hip abduction: R 4/5 L 4/5 Knee extension: R 4/5 L 4/5 Knee Flexion: R 4/5 L 4/5 Dorsiflexion/heel walk: R 4/5 L 4/5 Plantarflexion/toe walk:R 4/5 L 4/5 JOINT MOBILITY/PALPATION Tenderness with palpation of right gluteal, piriformis and QL SPECIAL TESTS -Quadrant test: positive on right -Single leg stance: increase in pain on right -Slump test: negative -Straight leg raise: negative -Crossed straight leg raise: negative SI/HIP -RITA: positive on right -FADIR: negative TX: Previous exercise program: Starting these again: Lumbar hip rolls Sitting piriformis stretch Supine modified Jan stretch Supine hamstring stretch with belt Functional Test Performed & Score 21/50 Modified Oswestry Low Back Pain Questionnaire Assessment Assessment/Impression Pt is a 73 year old female who presents with concerns of right low back and hip pain. Patient also has notable objective findings including limited ROM, tenderness to palpation, and decreased strength which are also likely contributing to the problem. Patient is a good candidate for skilled therapy to target deficits described above. Skilled PT intervention is necessary for use of therapeutic exercise manual therapy, neuromuscular re- education, gait training, and therapeutic activity. Functional impairments include difficulty with: standing, walking, exercising, driving, skiing, riding her e-bike and ADLs See appropriate sections of PT eval for complete list of goals and POC. D/C plan and criteria is for pt to achieve the goals as listed below or until max rehab potential is met. Pt was agreeable with plan of care and goals established. Primary Functional Limitations standing walking skiing riding e-bike exercising ADLs Plan of Care Rehabilitation Potential Good Physical Therapy Goals Within 10-12 weeks: 1.Pt will demonstrate independence in performance of home exercise program with the use of video and/or handouts in order to optimize functional mobility and reduce risk for re-injury. 2.Pt will demonstrate consistent HEP compliance to ensure progress in reaching established goals during course of care. 3.Patient will be able to walk her dog for 30 minutes without pain. 4.Patient will report pain levels <2/10 with all activities in order to improve functional mobility at home, work and during functional leisure activities. 5.Patient is able to sleep without waking more than one time due to pain in a 6-8 hour time frame. 6.Patient will be able to ride her e-bike for 10 miles without pain. 7.Patient will be able to bend and lift household items from the floor to shoulder height to perform ADLs without pain. 8.Pt will be able to ascend/ descend 1 flight of stairs in order to perform ADLs pain free. 9.Pt will exhibit 5 pt improvement in Modified Oswestry Outcome measure to demonstrate functional improvement and progress towards goals Coordination/Communication With Referral Source Treatment Plan/Direct Interventions Joint Mobilization,Manual Therapy,Neuromuscular Re-ed, Therapeutic Activities, Therapeutic Exercises Patient Will Be Discharged From Therapy Independently Progressing Evaluation Billing Untimed Code Treatment Minutes 30 Complexity Low Certification Information Initial Certification Date 04/19/24 Ending Certification Date 07/17/24 Provider Signature Required Yes Provider Signature Shows Agreement With POC & Medical Necessity Physician NPI Number Write NPI# Here Physician Comment/Change : Physician Signature & Date Requested Please Sign/Date Here
== END 2024-07-19 11:58 | disposition home or self-care (01) ==
PROVIDERS: PCP Internal Medicine; Visit Provider Family Medicine
DX: M54.50 Low back pain, unspecified (principal); G89.29 Other chronic pain; M25.551 Pain in right hip; Z51.89 Encounter for other specified aftercare
CPT/HCPCS: 97110; 97140; 97161

== ENCOUNTER 2024-08-03 10:09 | Outpatient (CLI) | payer MEDICARE, SELFPAY ==
--- OUTSIDE RECORDS SUMMARY | 2024-08-03 10:11 | XMS_ITS | Clinical Summary ---
Author Organization [facility] Address [address] [place] [address] Care Team Providers Care Roll On Man Name Role Phone Elsewhere, Pcp Primary Care Provider Unavailabl e Source Comments Patient records contain information from all sites at [facility]. For routine questions regarding patient records, call [phone] during business hours, M-F 8:00 AM - 5:00 PM Central Time. Record requests for emergency care only can be directed to [phone] at any time.[facility] Allergies No known active allergies Medications [...] drink = 0.6 oz pur e alcohol) [facility] Utilities Answer Date Recorded In the past 12 months has e Le[employer], gas, oil, or water [employer] threatened to shut off services in your [...] often do you attend chur ch or pentecostal services? Never 02/25/2021 Do you belong to any clubs o r organizations such as confucianism groups, unions, fraternal or athletic groups, or [...] and heating? Not hard at all 02/25/2021 [employer] Occupat ional [facility] - Occupational Stress Questionnaire Answer Date [...] your living situation today? I have a [facility] place to live 12/22/2023 Education Answer Date Recorded What is the highest level of school you have completed or the highest degree you have received? Some college, no degree 02/25/2021 Comments No Sex and Gender Information Value Date Recorded Sex Assigned at Female 11/15/2023 8:06 PM INSTRUCTOR TRAINER CANINE SERVICE Legal Sex Female 9:22 AM INSTRUCTOR TRAINER CANINE SERVICE Gender Identity Female 11/15/2023 8:06 PM INSTRUCTOR TRAINER CANINE SERVICE Sexual Orientation Straight 11/15/2023 8: 06 PM INSTRUCTOR TRAINER CANINE SERVICE Last Filed Vital Signs Vital Sign Reading Time Taken Comments Blood Pressure 142/55 12/22/2023 11:17 AM CDT Pulse 52 12/22/2023 11:17 AM CDT Temperature 36.7 C (98.1 F) 12/22/2023 11:17 AM CDT Respiratory Rate 14 12/22/2023 11:17 AM CDT Oxygen Saturation 96% 12/22/2023 11:17 AM CDT Inhaled Oxygen Concentration - - Weight 89.4 kg (197 lb 1.5 oz) 12/21/2023 11:00 PM CDT Height 165.1 cm (5' 5) 12/21/2023 12:29 PM CDT Body Mass Index 32.8 12/21/2023 12:29 PM CDT Plan of Treatment Health Maintenance Due Date Last Done Comments Bone Density Scan (Osteoporosis Screen) 1951 CT Colonography 1950 Cologuard 1950 Diabetic Office Visit with Foot Exam 1951 Dilated Eye Exam 1950 Hepatitis C Screening 1950 Urine Albumin 1950 Hepatitis B Vaccines (1 of 3 - Risk 3-dose series) 2011 Mammogram 08/12/2016 08/12/2015 (Perf ormed elsewhere) Thyroid Stimulating Hormone (TSH) test for thyroid function 04/30/2021 04/30/2020, 08/20/2019, 09/01/2018, Additional history exists Depression Screening (Annual PHQ-2) 09/12/2023 COVID-19 Vaccine ( season) 2024 12/29/2023, 07/07/2023, 07/06/2022, Additional history exists Influenza Vaccine (#1) 2024 , 07/06/2022, 06/03/2021, Additional history exists Hemoglobin A1C 06/20/2024 12/20/2023, 06/2 01/2021, 11/25/2020, Additional history exists Colonoscopy 06/26/2024 06/26/2019, 12/0 09/2013 (Performed elsewhere) Colorectal Cancer Surveillance 06/26/2024 Creatinine Level (Kidney Function Test) 12/19/2024 12/20/2023, 12/03/2020, 04/30/2020, Additional history exists Office Visit for Blood Pressure Check / Re-check 12/19/2024 12/20/2023 Potassium Level 12/19/2024 12/20/2023, 04/12, 08/20/2019, Additional history exists Sodium Level 12/19/2024 12/20/2023, 04/12, 08/20/2019, Additional history exists Lipid (Cholesterol) Screening 03/06/2026 03/06/2021, 11/25/2020, 05/16/2020, Additional history exists DTaP,Tdap,and Td Vaccines (3 - Td or Tdap) 09/06/2027 09/06/2017, 07/05/2007 Pneumococcal vaccine (65+ years) Completed 07/31/2018, 07/25/2017 Zoster Vaccines Completed 09/02/2021, 03/2021, 08/24/2012 Fall Risk Screen (Annual) Completed 12/21/2023 IPV Vaccines Aged Out No longer eligi ble based on patient's age to complete this topic Procedures Procedure Name Priority Date/Time Associated Diagnosis [...] ADD-O N Final Result Performing Organization Address City/[facility]/ZIP Co de Phone Number [facility] [address] [place], [place] [id number] [place] [address] DTL [facility] [address] [place] [address] * Basic Metabolic Panel (12/20/2023 8:38 AM CDT) Pathologist [facility] Potassium, S 3.9 3.6 - 5.2 mmol/L [...] CDT Lai Gallego APRN C.N.P., M.S. LAB BLOOD ADD-O N Final Result [facility] [address] [place] [address], [facility] DTL [facility] [address] [place] [place] [address] from Last 3 Months or Most Recently Relevant to Health Maintenance Insurance [employer] Advance Directives For more information, please contact: [phone] * Full Code (Latest Code Status on File) Date Activated Date Inactivated Comments 12/21/2023 10:01 PM 12/22/2023 3:02 PM Question Answer Comments Full Code: Not Discussed Due to: Patient not available Care Teams Roll On Man Relationship Specialty Start Date End Date Elsewhere, Pcp PCP - General Internal Medicine 12/19/23
--- OUTSIDE RECORDS SUMMARY | 2024-08-03 10:12 | XMS_ITS | Referral Summary ---
Author Organization [facility] Address [address] [place] [address] Care Team Providers Care Sustainable Design Consultant Name Role Phone Elsewhere, Pcp Primary Care Provider Unavailabl e Source Comments Patient records contain information from all sites at [facility]. For routine questions regarding patient records, call [phone] during business hours, M-F 8:00 AM - 5:00 PM Central Time. Record requests for emergency care only can be directed to [phone] at any time.[facility] Allergies No known active allergies Medications [...] drink = 0.6 oz pur e alcohol) [facility] Utilities Answer Date Recorded In [...] any clubs o r organizations such as orthodox groups, unions, fraternal or athletic groups, or [...] and heating? Not hard at all 02/25/2021 [facility] - Occupational [...] your living situation today? I have a [facility] place to live 12/22/2023 Education Answer Date Recorded What is the highest level of school you have completed or the highest degree you have received? Some college, no degree 02/25/2021 Comments No Sex and Gender Information Value Date Recorded Sex Assigned at Female 11/15/2023 8:06 PM CANCER REGISTRY MANAGER Legal Sex Female 9:22 AM CANCER REGISTRY MANAGER Gender Identity Female 11/15/2023 8:06 PM CANCER REGISTRY MANAGER Sexual Orientation Straight 11/15/2023 8: 06 PM CANCER REGISTRY MANAGER Last Filed Vital Signs Vital Sign Reading [...] CDT Lizabeth Gillette APRN C.N.P., M.S.N. LAB BLOOD ADD-O N Final Result [facility] [address] [place] [address], [facility] [address] [place] [address] * Basic Metabolic Panel (12/20/2023 8:38 AM [...] M.S. LAB BLOOD ADD-O N Final Result [facility] [address] [place] [address], [facility] [address] [place] [address] from Last 3 Months or Most Recently Relevant to Health Maintenance Insurance [facility] Advance Directives For more information, please contact: [phone] * Full Code (Latest Code Status on File) Date Activated Date Inactivated Comments 12/21/2023 10:01 PM 12/22/2023 3:02 PM Question Answer Comments Full Code: Not Discussed Due to: Patient not available Care Teams Sustainable Design Consultant Relationship Specialty Start Date End Date Elsewhere, Pcp PCP - General Internal Medicine 12/19/23
--- OUTSIDE RECORDS SUMMARY | 2024-08-03 10:12 | XMS_ITS | Clinical Summary ---
Author Organization [email or web address] [facility] Address [place], [place] [address] Care Team Providers Care Automobile Upholsterer Apprentice Name Role Phone Liss Madera MD Primary Care Provider [phone] Allergies No known active allergies Medications Medication [...] Frequency of use: Daily 0 05/13/2021 Active glucosamine 500 mg capsule Take 500 mg by mouth. Active Active Problems Problem Noted Date Diagnosed Date Type 2 diabetes mellitus wit hout complication, without long-term current use of insulin 07/13/2018 Overview (10/31/2018): 07/07/18 diagnosed based on Fasting Glucose 129. A1C then 6.2. Obstructive sleep apnea 03/22/2017 Pancreatic cyst 06/04/2016 Overview (03/06/2021): Monitored with MRI. [place] at [place]. Last [place] consult 02/2021 recommended CA19-9 level and then follow up MRI in 1 year (which is December 2021 as last MRI December 2020). Patient was instructed to contact [place] regarding getting the CA19-9 level as medicare [...] Encounters Date Type Department Care Team Description 08/02/2024 Travel 07/12/2024 11:00 AM CDT Office Visit [facility] [address] [place] [facility] [place] [address] Cedric Fink MD Musculoskeletal Problem (Follow up back and right hip pain, USGI for right hip on 05/23/24) 07/12/2024 Travel 07/07/2024 Travel 07/06/2024 Lab Requisition [facility] [phone] Mila Roberts MD 05/23/2024 7:45 AM CDT Procedure Only [facility] [address] [facility] [place] [address] Cedric Fink MD Procedure (Ultrasound guided injection rig... 05/22/2024 Travel 05/09/2024 10:40 AM CDT Office Visit [facility] [address] [place] [address] Cedric Fink MD Consult (Low back and right hip pain) 05/09/2024 Travel 05/06/2024 Travel 05/04/[address] [facility] [address] [place] [address] Vivek Laws MD <No scans attached> from Last 3 Months Immunizations Name Administration Dates Next Due Amb Influenza, Inactivated A IIV4 (Age 65+ Years) Preserv Free 07/07/2020 COVID-19 vaccine (Isai NTMedminder 30mcg/0.3mL) ROBIN RUFFIN 11/14/2020 Influenza, Inactivated AIIV4 (Age 65+ Years) [...] Reading Time Taken Comments Blood Pressure 122/76 07/12/2024 11:06 AM CDT Pulse 58 07/12/2024 11:06 AM CDT Temperature 36.6 C (97.9 F) 07/12/2024 11:06 AM CDT Respiratory Rate 20 03/22/2017 10:35 AM CDT Oxygen Saturation 97% 07/12/2024 11:06 AM CDT Inhaled Oxygen Concentration - - Weight 90.9 kg (200 lb 6.4 oz) 07/12/2024 11:06 AM CDT shoes on Height 166 cm (5' 5.35) 05/13/2021 1:42 PM CDT Body Mass Index 32.99 05/13/2021 1:42 PM CDT Plan of Treatment Upcoming Encounters Date Type Department Care Team (Late st Contact Info) Description 08/03/2024 10:40 AM DRAFTER APPRENTICE Office Visit [facility] at [facility] [address] [place] [facility] [place] [phone] Cedric Fink MD [address] [place] [address] Arrived 09/19/2024 10:40 AM DRAFTER APPRENTICE Office Visit [facility] [address] [place] [address] Cedric Fink MD [address] [place] [address] Health Maintenance Due Date Last Done Comments Zoster (shingles) series for age 50+ (2 of 3) 10/19/2012 08/24/2012 Depression screening for age 12+ 11/27/2021 11/27/2020, 08/23/2019, 08/20/2019, Additional history exists Medicare Wellness for age 65+ 11/28/2021, 08/20/2019, 07/31/2018, Additional history exists BMI (ht and wt on same day) for age 18+ 05/13/2022 05/13/2021, 11/27/2020, 04/30/2020, Additional history exists Mammogram for age 45-75 06/03/2022 06/03/20 21, 05/16/2020, 10/02/2018, Additional history exists Influenza for [...] Completed 08/28/2018, 02/2013 COVID-19 vaccine series Completed 07/03/20, 12/29/2023, 07/07/2023, Additional history exists Procedures Procedure Name Priority Date/Time Associated Diagnosis Comments AMB EPIDURAL STEROID INJECTION Routine 08/03/2024 8:02 AM DRAFTER APPRENTICE Iliopsoas bursitis of right hip Trochanteric bursitis of right hip Lumbar radiculopathy Spondylolisthesis of lumbar region Lumbar facet arthropathy LAB TRACKING EVENT Routine 07/05/2024 9: 12 AM CDT PATH TISSUE EXAM Routine 07/05/2024 9:12 AM CDT BEDSIDE US STUDY ARCHIVE Routine 05/23/2024 11:11 AM CDT Iliopsoas bursitis of right hip Trochanteric bursitis of right hip XR MAMMO BILAT SCREENING Routine 06/03/2021 1:30 PM CDT Visit for screening mammogram LIPID PANEL W REFLEX MEASURED LDL Routine 03/06/2021 9:05 AM CDT Hyperlipidemia, unspecified hyperlipidemia type COLONOSCOPY 06/26/2019 7:47 AM CDT XR DXA BONE DENSITY 2 SITES AXIAL Routine 08/28/2018 11:31 AM DRAFTER APPRENTICE Menopause ANTI HCV Routine 08/16/2014 8:02 AM DRAFTER APPRENTICE Need for hepatitis C screening test from Last 3 Months or Most Recently Relevant to Health Maintenance Results * LAB TRACKING EVENT (07/05/2024 9:12 AM CDT) Other (Other) Client Collect / Unknown 07/05/2024 9:12 AM CDT 07/06/2024 3:02 AM CDT Mila Roberts MD LAB BILL ONLY Performing Organization Address City/[facility]/ZIP Co de Phone Number [facility] [address] [place] [address], * PATH TISSUE EXAM (07/05/2024 9:12 AM CDT) Case Report Pathology Report Case: [id number] Authorizing Provider: Mila Roberts MD Collected: 07/05/2024911 Ordering Location: [facility] Received: 07/06/2024 09 Pathologist: Yogi Cortez MD Specimen: Sigmoid Polyp 07/09/2024 6:35 PM CDT [facility] [employer] [facility]- ENTRAL LABORATORY Final Diagnosis A) COLON, SIGMOID, POLYPECTOMY: 1. Hyperplastic polyp 07/09/2024 6:35 PM CDT [facility] [employer] Clinical Information Ms. Pastor is a 73 y.o. undergoes surveillance colonoscopy resulting in polypectomy x 1. 07/09/2024 6:35 PM CDT [facility] [employer] Gross Description A) Received in formalin is a dover mucosal fragment measuring 4 mm in greatest dimension, which is entirely submitted in one cassette. It is labeled with the patient's name and designated sigmoid colon polyp. Monika Forbes 07/06/2024 11:02 AM 07/09/2024 6:35 PM CDT [facility] Microscopic Description The final diagnosis is based on microscopic examination of appropriate sections of all specimens. 07/09/2024 6:35 PM CDT [facility] [employer] ENTRAL LABORATORY Additional Information Interpreted at [facility] [employer] [facility] - [address], [place] [address] 07/09/2024 6:35 PM CDT [facility] [employer] LAB[facility] Other (Sigmoid Polyp) 07/05/2024 9:12 AM CDT 07/06/2024 9:35 AM CDT Mila Roberts MD PATHOLOGY/CYTOLOGY Performing Organization Address City/[facility]/ZIP Co de Phone Number [facility]CENTRAL LABORATORY [address] [place] [address], [place] * BEDSIDE US STUDY ARCHIVE (05/23/2024 11:11 AM CDT) Narrative Ella Barbosa - 05/23/2024 11:11 AM CDT The patient was seen for ultrasound guided injection by Dr. Cedric Fink. Ultrasound was not used for diagnostic purposes, but to guide the needle placement and document the position of the injection. See patient's EPIC encounter for the detail of the procedure; see SKYLAR for saved images of the injection. Cedric Fink MD PROCEDURE ORD * XR MAMMO BILAT SCREENING (06/03/2021 1:30 PM CDT) Anatomical Region Laterality Modality BREASTS, Breast Left, Breast Right Bilateral Mammography Impressions 06/04/2021 3:52 PM CDT There is no radiographic evidence for malignancy. Recommend annual mammograms. MAMMOGRAM ASSESSMENT: ACR 1 Negative PATIENTS: You will also receive a letter with your examination results in an easy to read format. If you have questions about your results, please contact your referring provider. Narrative 06/04/2021 3:52 PM CDT For Patients: As a result of the Century Cures Act, medical imaging exams and procedure reports are released immediately into your electronic medical record. You may view this report before your referring provider. If you have questions, please contact your health care provider. XR MAMMO BILAT SCREENING [[id number]] CLINICAL HISTORY: This is an asymptomatic 70 y.o. patient. INDICATION FOR EXAM: Mammogram Screening. TECHNIQUE: CC & MLO views were obtained. This study was evaluated with the assistance of Computer-Aided Detection. COMPARISON FILM: Yes 05/16/20 [employer] 10/02/18 [employer] FINDINGS: The breasts are almost entirely fatty. There are no dominant masses, suspicious micro calcifications or areas of architectural distortion. Magalie Castro DO MAMMO * (ABNORMAL) LIPID PANEL W REFLEX MEASURED LDL (03/06/2021 9:05 AM CDT) CHOLESTEROL,TOTAL 131 100 - 199 mg/dL 03/06/2021 2:06 PM CDT [facility] TRIGLYCERIDES 181(H) <150 mg/dL 03/06/2021 2:06 PM CDT [facility] HDL CHOLESTEROL 34(L) >40 mg/dL 2:06 PM CDT [facility] NON-HDL CHOLESTEROL 97 <145 mg/dl 03/06/2021 2:06 PM CDT [facility] CHOL/HDL RATIO 3.85 <4.50 03/06/2021 2:06 PM CDT [facility] LDL CHOLESTEROL 61 <=130 mg/dL 03/06/2021 2:06 PM CDT [facility] VLDL CHOLESTEROL 36 mg/dL 03/06/20 2:06 PM CDT [facility] PROVIDER ORDERED STATUS RANDOM 03/06/2021 2:06 PM CDT [facility] Blood BLOOD SPECIMEN / Unknown Butterfly / Unknown 03/06/2021 9:05 AM CDT 03/06/2021 9:11 AM CDT Magalie Castro [facility]Y [facility] [address] [place] [address], [place] * COLONOSCOPY (06/26/2019 7:47 AM CDT) 06/26/2019 7:47 AM CDT Narrative Transcriptions Vivek Laws MD - 06/26/2019 8:53 AM CDT Patient Name: Zaida Pastor Procedure Date: 06/26/2019 Gender: Female Date of : 1950 Admit Type: Outpatient Procedure: Colonoscopy Proceduralist: Vivek Laws MD , Jojo De Jesus, RN(Nurse) Indications/Pre-Op Diagnosis: Surveillance: Personal history ofadenomatous polyps on last colonoscopy 5 years ago, Last colonoscopy: April 2014 Medications: Fentanyl 100 micrograms IV, Midazolam 2 mgIV, The level of sedation administered wasmoderate Procedure Description: The patient had risks, benefits and alternatives explained to andgave informed consent. The patient had a stable cardiopulmonary status and judged an adequate candidate for conscious sedation. The [id number] was passed through the anus and advanced [...] physician intraservice time was 19 minutes. Vivek aLws MD 06/26/2019 8:53:14 AM This report has been signed electronically. Note Initiated On: 06/26/2019 7:47 AM Procedure Code(s): --- Professional --- 54439, Colonoscopy, flexible; with biopsy, single or multiple Diagnosis Code(s): --- Professional --- Z86.010, Personal history of colonicpolyps D12.2, Benign neoplasm of ascending colon K57.30, Diverticulosis of large intestine without perforation or abscess withoutbleeding CPT copyright 2018 [employer]. All rights reserved. The codes documented in this report are preliminary and upon bookkeepers supervisor reviewmay be revised to meet current compliance requirements. Scope In: 8:11:20 AM Scope Withdrawal Time 0 hours 8 minutes 43 seconds Scope Out: 8:28:43 AM Vivek Laws MD PROCEDURE ORD * XR DXA BONE DENSITY 2 SITES AXIAL [60588.1] (08/28/2018 11:31 AM DRAFTER APPRENTICE) Anatomical Region Laterality Modality Spine, HIPS, HIPL, HIPR Other Narrative 09/08/2018 8:04 AM DRAFTER APPRENTICE Please see scanned document for results of this study. Magalie Castro DO DEXA * ANTI HCV (08/16/2014 8:02 AM DRAFTER APPRENTICE) HEPATITIS C ANTIBODY Non-Reacti ve Non-Reacti ve 08/16/2014 1:15 PM DRAFTER APPRENTICE [facility] Blood specimen (specimen) BLOOD SPECIMEN / Unknown Venipuncture / Unknown 08/16/2014 8:02 AM DRAFTER APPRENTICE 08/16/2014 8:02 AM DRAFTER APPRENTICE Narrative [facility] - 08/16/2014 1:15 PM DRAFTER APPRENTICE Antibodies to HCV not detected; does not exclude the possibility of exposure to HCV. Sandi Mota CHANGE MANAGEMENT DIRECTOR SEND OUTS [facility] [address] [place] [address], from Last 3 Months or Most Recently Relevant to Health Maintenance Care Teams Automobile Upholsterer Apprentice Relationship Specialty Start Date End Date Liss Madera MD [address] [place] [address] PCP - General Internal Medicine 05/04/22
--- OUTSIDE RECORDS SUMMARY | 2024-08-03 10:12 | XMS_ITS ---
Author Organization [facility] Address [address] [place] [address] Care Team Providers Care Lift Electrician Name Role Phone Unavailable Unavailable Unavailable Surgery Details Not on file Complications Check Surgery Details section. Procedure Estimated Blood Loss Check Surgery Details section. Procedure Findings Check Surgery Details section. Procedure Specimens Taken Check Surgery Details section.
== END 2024-08-03 10:10 | disposition home or self-care (01) ==
LOC: INJ CL 10:09
PROVIDERS: PCP Internal Medicine; Visit Provider Family Medicine
DX: M54.16 Radiculopathy, lumbar region (principal); M51.369 Other intervertebral disc degeneration, lumbar region without mention of lumbar back pain or lower extremity pain
CPT/HCPCS: 62323; J0702; Q9966

== ENCOUNTER 2024-09-25 12:49 | Outpatient (CLI) | payer MEDICARE, SELFPAY ==
--- NOTE | 2024-09-25 13:00 | CRLHL7_ITS ---
For Patients: As a result of the 21st Century Cures Act, medical imaging exams and procedure reports are released immediately into your electronic medical record. You may view this report before your referring provider. If you have questions, please contact your health care provider. EXAM: MRI OF THE RIGHT SHOULDER WITHOUT CONTRAST CLINICAL INDICATION: Right shoulder pain. COMPARISON PLAIN FILMS: None available at time of interpretation. COMPARISON CROSS-SECTIONAL IMAGING STUDIES: None available at time of interpretation. TECHNICAL: Axial, sagittal oblique and coronal oblique T1, PD, PD FS and T2-weighted images. Shoulder surface coil. FINDINGS: ROTATOR CUFF TENDONS AND MUSCLES AND DELTOID: Supraspinatus: High-grade partial-thickness articular surface tear of the supraspinatus tendon medial to the insertional footprint with possible full-thickness extension at the anterior margin. The tear measures 1.0 cm RL x 1.6 cm AP. Moderate to advanced tendinopathy. No muscle atrophy or edema. Infraspinatus: Mild tendinopathy. No tendon tear. No muscle atrophy or edema. Subscapularis: Thinning of the distal superior subscapularis tendon consistent with low-grade partial-thickness tear. Mild to moderate tendinopathy. No muscle atrophy or edema. Teres Minor: No tendinosis, tendon tearing, muscle atrophy or muscle edema. Deltoid: No muscle atrophy or edema. BURSA: Fluid in the subacromial and subdeltoid and subcoracoid bursae. BICEPS TENDON, LONG HEAD: Moderate tendinopathy. No tendon tear or subluxation. CORACOACROMIAL ARCH: Acromial Morphology: Type 2 acromial morphology. Mild lateral downsloping of the acromion. Small subacromial enthesophyte. No os acromiale. Acromiohumeral Interval: Normal. Coracohumeral Interval: Normal. ACROMIOCLAVICULAR JOINT REGION: AC Joint: Moderate arthropathy. Ligaments: The coracoclavicular ligaments are intact. GLENOHUMERAL JOINT: Joint space: Small joint effusion. Humeral Head Articular Cartilage: Mild fissuring. Glenoid Articular Cartilage: Mild fissuring. Labrum: No labral tear or paralabral cyst. Alignment: Maintained. Capsule: No capsular edema or abnormal capsular thickening. OSSEOUS STRUCTURES: No fracture, marrow edema or marrow replacement process. OTHER FINDINGS: There is no abnormality within the suprascapular or spinoglenoid notches nor within the quadrilateral space. No axillary adenopathy or mass. IMPRESSION: 1. High-grade partial-thickness articular surface tear of the supraspinatus tendon with possible full-thickness extension at the anterior margin. Moderate to advanced tendinopathy. 2. Low-grade partial-thickness tear of the distal subscapularis tendon with mild to moderate tendinopathy. 3. Mild infraspinatus tendinopathy. 4. Long head of the biceps tendinopathy. 5. Mild glenohumeral chondromalacia. 6. Fluid in the subacromial subdeltoid and subcoracoid bursae. 7. Mild lateral downsloping of the acromion and small subacromial enthesophyte. 8. Moderate arthropathy in the acromioclavicular joint. Dictated by Cedric Rivero MD @ 09/25/2024 4:13:12 PM (Electronically Signed)
== END 2024-09-25 12:50 | disposition home or self-care (01) ==
LOC: MRI 12:50
PROVIDERS: PCP Internal Medicine; Visit Provider Family Medicine
DX: M25.511 Pain in right shoulder (principal); M75.41 Impingement syndrome of right shoulder; M75.101 Unspecified rotator cuff tear or rupture of right shoulder, not specified as traumatic; M94.211 Chondromalacia, right shoulder
CPT/HCPCS: 73221

== ENCOUNTER 2025-01-15 12:34 | Outpatient (CLI) | payer MEDICARE, SELFPAY | END 2025-01-15 12:35 | disposition home or self-care (01) | LOC: INJ CL 12:34 | PROVIDERS: PCP Internal Medicine; Visit Provider Family Medicine | DX: M54.16 Radiculopathy, lumbar region (principal); M51.369 Other intervertebral disc degeneration, lumbar region without mention of lumbar back pain or lower extremity pain | CPT/HCPCS: 62323; J0702; Q9966 ==

== ENCOUNTER 2025-06-06 09:34 | Outpatient (CLI) | payer MEDICARE, SELFPAY ==
--- NOTE | 2025-06-06 09:45 | CRLHL7_ITS ---
For Patients: As a result of the Century Cures Act, medical imaging exams and procedure reports are released immediately into your electronic medical record. You may view this report before your referring provider. If you have questions, please contact your health care provider. INDICATION: BILATERAL SCREENING MAMMOGRAM, ASYMPTOMATIC 74 Y/O FEMALE COMPARISON: 05/21/2024, 08/16/2022, 06/03/2021 TECHNIQUE: Digital mammogram in CC and MLO projections including computer-aided detection (CAD) and tomosynthesis. BREAST COMPOSITION: There are scattered areas of fibroglandular density. FINDINGS: No suspicious findings. ASSESSMENT: BI-RADS 1 Negative RECOMMENDATION: Annual screening mammogram. A lay language report of this examination will be provided to the patient. Dictated by: Marcus Holland MD @ 06/07/2025 10:37:14 (Electronically Signed)
== END 2025-06-06 09:35 | disposition home or self-care (01) ==
LOC: MAMMO 09:35
PROVIDERS: PCP Internal Medicine; Visit Provider Internal Medicine
DX: Z12.31 Encounter for screening mammogram for malignant neoplasm of breast (principal)
CPT/HCPCS: 77063; 77067

== ENCOUNTER 2025-07-09 09:20 | Outpatient (CLI) | payer MEDICARE, SELFPAY | END 2025-07-09 09:21 | disposition home or self-care (01) | LOC: NFLDREF 07-12 03:04 | PROVIDERS: PCP Internal Medicine; Referring Provider Internal Medicine; Visit Provider Internal Medicine | DX: E11.3293 Type 2 diabetes mellitus with mild nonproliferative diabetic retinopathy without macular edema, bilateral (principal); E03.9 Hypothyroidism, unspecified | CPT/HCPCS: 80053; 80061; 82043; 82570; 84439; 84443 ==

== ENCOUNTER 2025-07-16 09:54 | Outpatient (CLI) | payer MEDICARE, SELFPAY | END 2025-07-16 09:55 | disposition home or self-care (01) | LOC: INJ CL 09:55 | PROVIDERS: PCP Internal Medicine; Visit Provider Family Medicine | DX: M54.16 Radiculopathy, lumbar region (principal); M51.369 Other intervertebral disc degeneration, lumbar region without mention of lumbar back pain or lower extremity pain | CPT/HCPCS: 62323; J0702; Q9966 ==